=== PATIENT | male | born 1945 | race Caucasian/White ===

== ENCOUNTER → 2018-07-03 08:09 | Outpatient (CLI) | payer MEDICARE, SELFPAY ==
--- NOTE | 2018-07-03 08:13 | CT_ITS ---
EXAM: CT LUNG LOW DOSE WO CONTRAST TECHNIQUE: The exam was performed on a GE Light Speed [address] scanner using 3.0 mGy CTDI. A low dose helical CT CHEST was performed on a multi-detector scanner. All CT scans at this facility use one or more dose reduction techniques, viz.: automated exposure control, ma/kV adjustment per patient size (including targeted exams where dose is matched to indication, i.e. head) or iterative reconstruction technique. The LDCT was performed in a facility that meets the criteria for the screening program. Data regarding this exam was submitted to ACR which is an approved registry. The order for this exam indicates that it came as a result of a lung cancer screening counseling shard decision-making visit that included all the elements required of such a visit including smoking cessation. The radiologist interpreting this exam meets the [facility] criteria for the LDCT lung cancer screening program. The exam is reported using the Lung-RADS classification scale and reported to the ACR registry. NOTE: This study was performed for the specific purposes of lung cancer screening and is not an alternative to diagnostic chest CT. RADIATION DOSE: CTDI vol(CT dose Index-volume) = 2.9mGy DLP (Dose Length Product) = 121.4 mGy-cm COMPARISON: None HISTORY: 1 pack per day 54 years = 52 pack year. Currently smoking. No signs of symptoms of lung cancer FINDINGS: LUNG LAMB COPD. Moderate emphysematous changes apical pleural scarring likely accounts for the minimal irregular slight nodular density at the right lung apex extending towards the pleura. Minimal density at the medial left lung apex include some calcifications and most likely does reflect fibrocalcific pleural and parenchymal scarring Small focal less than 4 mm density at the periphery of the left upper lung axial image 30 more likely scarring. Scattered scant areas of less evident pleural parenchymal scarring for example anterior R UL axial image 46 barely evident. Unimpressive. Minor thickening at the peripheral reflection of the major fissure on the left noted. . The coronal views nicely demonstrate a linear scarring and atelectasis just above the left hemidiaphragm along with with some minor bronchiectatic changes in this region. Findings here compatible & reflect postinflammatory changes and scarring here at the left lung base/left lower lobe Overall sign at category lung-RADS 2, possibly up to category 3. With benign appearance behavior low likelihood (lung-RADS 2,Category2): Follow-up in one 12 months adequate but would be encouraged, and emphasized.. MEDIASTINUM and deangelo No Mediastinal adenopathy or mass. No significant hilar adenopathy or mass. Minimal gynecomastia bilaterally. No axillary adenopathy. Heart normal size no pericardial effusion. No remarkable coronary artery calcification Upper abdomen. Disproportionate prominent left lobe versus right with posterior position of gallbladder towards the right colon. Anatomical variation although could reflect underlying liver disease however recommend correlation with LFTs. Osseous. No osseous lesions. Mild degenerative changes T-spine with Schmorl's nodes mid T-spine ribs appear intact. IMPRESSION:...... 1. Chronic lung changes. Moderately pronounced Emphysematous changes Particularly note Linear atelectasis and scarring, most pronounced at left lung base just above left hemidiaphragm. Reflect old postinflammatory changes with minimal bronchiectatic changes this region,. Along with mild elevation left hemidiaphragm reflecting mild volume loss from scarring.. 2.. Mild irregular apical pleural & parenchymal scarring likely account for the densities towards the apices bilaterally Scatte
== END ==
PROVIDERS: PCP Physician Assistant; Visit Provider Physician Assistant
DX: Z12.2 Encounter for screening for malignant neoplasm of respiratory organs (principal); Z87.891 Personal history of nicotine dependence

== ENCOUNTER → 2018-11-06 10:26 | Outpatient (CLI) | payer MEDICARE, SELFPAY ==
[2018-11-06 12:02] LABS: Prostate Specific Ag, Diagnost 3.37 ng/mL (0.0-4.0)
== END ==
PROVIDERS: Visit Provider Urology
DX: R97.20 Elevated prostate specific antigen [PSA] (principal)
CPT/HCPCS: 36415; 84153

== ENCOUNTER → 2019-04-20 10:07 | Outpatient (POV) | payer MEDICARE, SELFPAY | PROVIDERS: Visit Provider Dermatology | DX: Z00.00 Encounter for general adult medical examination without abnormal findings (principal) ==

== ENCOUNTER → 2019-09-07 07:54 | Outpatient (CLI) | payer MEDICARE, SELFPAY ==
--- NOTE | 2019-09-07 07:57 | CT_ITS ---
PROCEDURE: CT LUNG SCREENING CLINICAL INDICATION: H/O NICOTINE DEPENDENCE Fifty-three pack-year smoking history, asymptomatic for lung cancer COMPARISON: LUNGSCREEN CT lung screening from 07/03/2018 TECHNIQUE: The exam was performed on a GE Light Speed [address] scanner using 2.90 mGy CTDI. A low dose helical CT CHEST was performed on a multi-detector scanner. All CT scans at the facility use one or more dose reduction, viz: automated exposure control, ma/kV adjustment per patient size (including targeted exams where dose is matched to indication, i.e. head), or iterative reconstruction technique. The LDCT was performed in a facility that meets the criteria for the screening program. Data regarding this exam was submitted to ACR which is an approved registry. The order for this exam indicates that it came as a result of a lung cancer screening counseling shard decision-making visit that included all the elements required of such a visit including smoking cessation. The radiologist interpreting this exam meets the CMS criteria for the LDCT lung cancer screening program. The exam is reported using the Lung-RADS classification scale and reported to the ACR registry. NOTE: This study was performed for the specific purposes of lung cancer screening and is not an alternative to diagnostic chest CT. RADIATION DOSE: CTDI vol(CT dose Index-volume) = 2.90mG DLP (Dose Length Product) = 121.68 mGcm Lung Rads Category: FINDINGS: COPD/centrilobular emphysema with scattered areas of scarring/fibrosis as before. Atelectatic or fibrotic changes are present in the lung bases slightly worse on the right from the previous exam. There are scattered noncalcified and calcified pulmonary nodules. The noncalcified nodules are 3 mm or less and unchanged. No suspicious nodules apparent OTHER FINDINGS: Gynecomastia IMPRESSION: Lung rads category 2, benign Recommend annual LD CT Dictated by: Cory Guillory MD 09/13/2019 09:47 Electronically signed by Cory Guillory MD in [place] 09/13/2019 09:47
--- NOTE | 2019-09-07 07:58 | US_ITS ---
PROCEDURE: US ABD. AORTA SCREENING CLINICAL INDICATION: SCREENING FOR AAA COMPARISON: No exams were available for comparison FINDINGS: The proximal abdominal aorta measures 18 millimeters x 21 millimeters. The mid abdominal aorta measures 17 mm x 19 millimeters. The distal abdominal aorta measures 17 mm x 17 millimeters. The proximal right common iliac artery measures 8.3 millimeters and in the proximal left iliac artery measures 7.7 millimeters. There is no significant atheromatous changes, evidence of and aneurysm, or abnormal fluid collections. Incidental note is of a 40 millimeter X 16 millimeter echogenic lesion within the inferior right lobe of the liver. IMPRESSION: No evidence of an aneurysm, echogenic lesion within the right lobe of the liver. This may represent a hemangioma and clinical correlation suggested. Dictated by: Talon Navarro 09/07/2019 10:07 Electronically signed by Talon aNvarro in [place] 09/07/2019 10:07
== END ==
PROVIDERS: PCP Physician Assistant; Visit Provider Physician Assistant
DX: R91.1 Solitary pulmonary nodule (principal); Z87.891 Personal history of nicotine dependence
CPT/HCPCS: 76705

== ENCOUNTER → 2019-09-28 08:41 | Outpatient (CLI) | payer MEDICARE, SELFPAY ==
[2019-09-28 09:33] LABS: Blood Urea Nitrogen 11 mg/dl (9-20); Estimated Glomerular Filt Rate 73 ml/min (>60); GFR (African American) 89 ML/MIN (>60)
== END ==
PROVIDERS: Visit Provider Physician Assistant
DX: R16.0 Hepatomegaly, not elsewhere classified (principal)
CPT/HCPCS: 36415; 82565; 84520

== ENCOUNTER → 2019-10-01 09:38 | Outpatient (CLI) | payer MEDICARE, SELFPAY ==
--- NOTE | 2019-10-01 09:40 | CT_ITS ---
PROCEDURE: CT ABDOMEN WO/W CON CLINICAL HISTORY: LIVER MASS Follow-up liver mass COMPARISON: LUNGSCREEN CT lung screening from 07/03/2018 US ABD. AORTA SCREENING from 09/07/2019 TECHNIQUE: 75 mL Optiray 350. Hemangioma protocol without contrast, 30 second, 60 second, and 5 minutes post enhanced delayed images. Axial images obtained with sagittal and coronal reformats. All CT scans at the facility use one or more dose reduction, viz: automated exposure control, ma/kV adjustment per patient size (including targeted exams where dose is matched to indication, i.e. head), or iterative reconstruction technique. FINDINGS: COPD noted in the lung bases. No liver mass is identified. No abnormal enhancement or fluid collection evident. Segmentation anomaly noted of the liver with prominent left lobe and smaller right lobe. There is some heterogeneous density on the unenhanced images. Perhaps the ultrasound abnormality was related to an area of fatty infiltration or artifact but is not demonstrated on the CT scan. The spleen, adrenal glands, pancreas have an unremarkable appearance. No radiopaque gallstones. There is a 2 mm stone in the lower pole of the right kidney and a 2 mm stone in the mid polar region of the left kidney. No intestinal obstruction or free air. No acute bony anomalies. IMPRESSION: 1. No hepatic mass identified. The area of increased echogenicity on the ultrasound may have been due to some focal fatty infiltration and or artifact. Segmentation anomaly noted of the liver with small right hepatic lobe. 2. Nonobstructing bilateral renal calculi Dictated by: Cory Guillory MD 10/02/2019 07:49 Electronically signed by Cory Guillory MD in [place] 10/02/2019 07:49
== END ==
PROVIDERS: PCP Physician Assistant; Visit Provider Physician Assistant
DX: R16.0 Hepatomegaly, not elsewhere classified (principal)
CPT/HCPCS: 74170; Q9967

== ENCOUNTER → 2019-11-16 13:52 | Outpatient (CLI) | payer MEDICARE, SELFPAY ==
[2019-11-16 15:23] LABS: Prostate Specific Ag Screen 3.3 ng/ml (0.0-4.0)
== END ==
PROVIDERS: Visit Provider Urology
DX: Z12.5 Encounter for screening for malignant neoplasm of prostate (principal)
CPT/HCPCS: 36415; G0103

== ENCOUNTER 2020-02-24 01:55 | Emergency (ER) | payer MEDICARE, SELFPAY ==
[2020-02-24 01:59] VITALS: BP 142/82; PULSE 67; RESP 18; TEMP 36.6; O2SAT 98; BMI 25.0
--- NOTE | 2020-02-24 02:24 | CT_ITS ---
PROCEDURE: CT ABDOMEN PELVIS W CON CLINICAL INDICATION: abd pain Right lower quadrant abdominal pain radiating into the right testicle COMPARISON: CT CT ABDOMEN WO/W CON from 10/01/2019 TECHNIQUE: IV Contrast: 75ML Isovue 370 Oral Contrast None Axial images obtained with sagittal and coronal reformats. All CT scans at the facility use one or more dose reduction, viz: automated exposure control, ma/kV adjustment per patient size (including targeted exams where dose is matched to indication, i.e. head), or iterative reconstruction technique. FINDINGS: LOWER THORAX: There are mild atelectatic changes in the lung bases. ABDOMEN & PELVIS: Nonspecific gastric wall thickening which could be due to gastritis or nondistention. This is in the region of the antrum of the stomach. There is bowel interposition between the liver in the abdominal wall. No focal liver lesions. The spleen, liver, adrenal glands, and pancreas have an unremarkable appearance. There is a 2 mm stone in the lower pole of the right kidney and upper pole of the left kidney. There is mild right hydronephrosis and hydroureter secondary to a 2 mm stone at the right ureterovesical junction. No intestinal obstruction or free air. No evidence of appendicitis or diverticulitis. No acute bony findings. IMPRESSION: 1. 2 mm right ureterovesical junction stone with mild right-sided hydroureteronephrosis with nonobstructing punctate bilateral renal calculi 2. Thickening of the antrum of the stomach. This could be due to nondistention or gastritis. Dictated by: Cory Guillory MD 02/24/2020 05:45 Cory Guillory MD in [place] 02/24/2020 05:45
--- NOTE | 2020-02-24 02:26 | US_ITS ---
PROCEDURE: US TESTICULAR CLINICAL INDICATION: testicle pain Right testicular pain, right lower quadrant abdominal pain COMPARISON: No exams were available for comparison FINDINGS: The right testicle is 5 x 2 x 3 cm. Left testicle is 5 x 2 x 3 cm. There is blood flow to both testicles. No testicular mass is apparent. There are small bilateral hydroceles. No spermatoceles or varicocele demonstrated. IMPRESSION: Small bilateral hydroceles otherwise negative testicular ultrasound Dictated by: Cory Guillory MD 02/24/2020 06:32 Cory Guillory MD in [place] 02/24/2020 06:32
[2020-02-24 02:32] LABS: Microscopic, Urine URINE MICROSCOPIC (MICROSCOPIC)
[2020-02-24 02:34] LABS: Appearance,Urine CLEAR (Clear); Basophils % 0.4 % (0.1-2.0); Blood, Urine TRACE-I (Negative); Color,Urine YELLOW (Yellow); Eosinophils # 0.1 K/mm3 (0.0-0.4); Eosinophils % 0.5 % (0.1-12.0); Glucose,Urine (UA) Negative (Negative); Hematocrit 50.6 % (42.0-52.0); Ketones,Urine 1+ (Negative); Leukocyte Esterase,Urine Negative (Negative); Lymphocytes # 2.4 K/mm3 (0.7-4.5); Lymphocytes % 20.9 % (10-50); Mean Corpuscular HGB Conc 33.7 g/dL (31.8-35.4); Mean Corpuscular Hemoglobin 29.1 pg (27.0-31.2); Mean Corpuscular Volume 86.3 fl (80-94); Monocytes # 0.8 K/mm3 (0.1-1.0); Neutrophils # 8.1 K/mm3 (1.8-7.8); Neutrophils % 71.2 % (37.0-80.0); Nitrate,Urine Negative (Negative); Platelet Count 113 K/mm3 (142-424); Protein,Urine Negative (Negative); Red Blood Count 5.86 M/mm3 (4.60-6.20); Red Cell Distribution Width 14.5 % (11.5-17.5); Specific Gravity, Urine 1.025 (1.005-1.030); White Blood Count 11.3 K/mm3 (4.8-10.8)
[2020-02-24 02:41] LABS: Alanine Aminotransferase 44 U/L (12-78); Albumin Level 3.6 g/dl (3.5-5.0); Albumin/Globulin Ratio 1.3 (1.1-1.8); Alkaline Phosphatase 231 U/L (38-126); Amylase 45 U/L (30-110); Anion Gap 9.2 mEq/L (5-15); Aspartate Amino Transferase 53 U/L (17-59); Bilirubin,Total 1.1 mg/dl (0.2-1.3); Blood Urea Nitrogen 15 mg/dl (9-20); Calcium 9.4 mg/dl (8.4-10.2); Carbon Dioxide 28 mmol/L (22.0-30.0); Chloride 103 mmol/L (98-107); Creatinine Clearance Estimated 75 mL/min (50-200); Estimated Glomerular Filt Rate 73 ml/min (>60); GFR (African American) 89 ML/MIN (>60); Globulin 2.8 g/dL (1.3-3.2); Glucose 181 mg/dl (74-100); Potassium 4.2 mmoL/L (3.5-5.1); Sodium 136 mmol/L (136-145); Total Protein,Serum 6.4 g/dl (6.3-8.2)
[2020-02-24 02:44] LABS: Lipase 110 U/L (23-300)
[2020-02-24 02:46] LABS: Bilirubin,Urine Negative (Negative); C-Reactive Protein 0.5 mg/L (0-4)
[2020-02-24 02:47] LABS: Bacteria,Urine 1+ /lpf; Calcium Oxalate Crystals,Urine 2+ /lpf; Mucus,Urine 1+ /lpf
[2020-02-24 03:02] LABS: Procalcitonin 0.133 ng/mL (0.0-2.0)
[2020-02-24 03:09] LABS: Coronavirus 19 IgG Antibody Negative (Negative); Coronavirus 19 IgM Antibody Negative (Negative)
[2020-02-24 03:14] LABS: Erythrocyte Sedimentation Rate 7 mm/hr (0-20)
--- NOTE | 2020-02-24 03:16 | PC.NURSE ---
pt to RAD
--- NOTE | 2020-02-24 03:41 | PC.NURSE ---
pt returned from CT
[2020-02-24 03:50] VITALS: BP 157/77; PULSE 72; RESP 18; O2SAT 95
[2020-02-24 04:21] VITALS: BP 156/79; PULSE 74; RESP 16; O2SAT 94
--- NOTE | 2020-02-24 04:24 | HMH.EDNVD ---
ED Disposition Clinical Impression: Renal colic on right side, Ureter, calculus Disposition: Home, Self-Care Condition on Discharge: Good Instructions: DI for Kidney Stones Additional Instructions: call pcp and dr lopez this am Prescriptions: Tamsulosin HCl [Flomax 0.4mg capsule] 0.4 mg PO HS #10 cap Transmission Status: Pending to [facility] #[id number] Referrals: Kathy Kennedy PA [Primary Care Provider] - Ajay Lopez MD [Staff Physician] - - Critical Care Critical Care Time: No Attestation: On 02/24/20, the high probability of a clinically significant, sudden or life threatening deterioration of the following system(s) required my full and direct attention, intervention and personal management. The time I documented below is in addition to time spent performing reported procedures but includes the following listed in this critical care notation. Medical Decision Making - Medical Records Medical records reviewed: Yes: I reviewed the patient's medical records. - Fausto Inquiry Pt receiving controlled substance: No Vital Signs: 02/24/20 01:59 02/24/20 03:50 02/24/20 04:21 Temperature 97.8 F Temperature Source Oral Pulse Rate [Right Radial] 67 72 74 Respiratory Rate 18 18 16 Blood Pressure [Right Arm] 142/82 H 157/77 H 156/79 H Blood Pressure Mean [Right Arm] 102 103 104 Blood Pressure Source [Right Arm] Automatic Cuff Automatic Cuff Automatic Cuff Blood Pressure Position [Right Arm] Supine Supine Supine 02 Sat by Pulse Oximetry 98 95 94 L Oxygen Delivery Method Room Air Room Air Room Air - Lab Data Lab results reviewed: Yes: I reviewed the patient's lab results. Lab Results 02/24/20 02:21: Urine Color Yellow, Urine Appearance Clear, Urine pH 6.0, Ur Specific [place]ridge 1.025, Urine Protein Negative, Urine Glucose (UA) Negative, Urine Ketones 1+, Urine Blood Trace-i, Urine Nitrate Negative, Urine Bilirubin Negative, Urine Urobilinogen 1.0, Ur Leukocyte Esterase Negative, Urine RBC 3-5, Urine WBC 3-5, Calcium Oxalate Crystal 2+, Urine Bacteria 1+, Urine Mucus 1+ 02/24/20 02:21: WBC 11.3 H, RBC 5.86, Hgb 17.0, Hct 50.6, MCV 86.3, MCH 29.1, MCHC 33.7, RDW 14.5, Plt Count 113 L, MPV 9.0, Neut % (Auto) 71.2, Lymph % (Auto) 20.9, Fergus % (Auto) 7.0, Eos % (Auto) 0.5, Baso % (Auto) 0.4, Neut # (Auto) 8.1 H, Lymph # (Auto) 2.4, Fergus # (Auto) 0.8, Eos # (Auto) 0.1, Baso # (Auto) 0.0, ESR 7 02/24/20 02:21: Sodium 136, Potassium 4.2, Chloride 103, Carbon Dioxide 28, Anion Gap 9.2, BUN 15, Creatinine 1.00, Estimated Creat Clear 75, Estimated GFR 73, Est GFR ( Amer) 89, Glucose 181 H, Calcium 9.4, Total Bilirubin 1.1, AST 53, ALT 44, Alkaline Phosphatase 231 H, C-Reactive Protein 0.5, Total Protein 6.4, Albumin 3.6, Globulin 2.8, Albumin/Globulin Ratio 1.3, Amylase 45 02/24/20 02:21: Lipase 110, Procalcitonin 0.133 02/24/20 02:21: SARS-CoV-2 IgG Ab (Rapid) Negative, SARS-CoV-2 IgM Ab (Rapid) Negative Result diagrams: 02/24/20 02:21 02/24/20 02:21 Orders (Tests/Meds): ED MEDICATIONS Generic Name Dose Route Start Last Admin Trade Name Freq PRN Reason Stop Dose Admin Sodium Chloride 1,000 mls @ 999 mls/hr 02/24/20 02:30 02/24/20 02:35 Sod Chlor 0.9% 1000ml Bag IV 02/24/20 03:30 999 mls/hr .Q1H1M NORM Administration Discontinued Medications Generic Name Dose Route Start Last Admin Trade Name Freq PRN Reason Stop Dose Admin Hydromorphone HCl 0.5 mg 02/24/20 03:45 02/24/20 03:53 Hydromorphone 2mg/Ml Syringe IV 02/24/20 03:46 0.5 mg ONCE ONE Administration Ketorolac Tromethamine 30 mg 02/24/20 02:24 02/24/20 02:48 Ketorolac 30mg/Ml Vial IV 02/24/20 02:25 30 mg ONCE ONE Administration Ondansetron HCl 4 mg 02/24/20 02:24 02/24/20 02:48 Ondansetron 4mg/2ml Vial IV 02/24/20 02:25 4 mg ONCE ONE Administration ORDERS Category Date Time Status CT abdomen pelvis w con Stat Cat Scan 02/24/20 02:24 Ordered US Testicular Stat Ultrasoun
[2020-02-24 05:03] VITALS: BP 126/58; PULSE 64; RESP 16; TEMP 36.6; O2SAT 95
== END 2020-02-24 05:05 | disposition home or self-care (01) ==
PROVIDERS: Emergency Provider Emergency Medicine; PCP Physician Assistant
DX: N20.1 Calculus of ureter (principal); J44.9 Chronic obstructive pulmonary disease, unspecified; E78.5 Hyperlipidemia, unspecified; F17.210 Nicotine dependence, cigarettes, uncomplicated; Z79.899 Other long term (current) drug therapy
CPT/HCPCS: 74177; 76870; 80053; 81001; 82150; 83690; 84145; 85025; 85651; 86140; 86328; 87086; 96365; 96375; 99284; J2405; Q9967

== ENCOUNTER 2020-09-16 16:28 | Emergency (ER) | payer MEDICARE, SELFPAY ==
[2020-09-16 16:36] VITALS: BP 151/84; PULSE 111; RESP 22; TEMP 37.5; O2SAT 95; BMI 22.4
--- NOTE | 2020-09-16 16:48 | XR_ITS ---
PROCEDURE INFORMATION: Exam: XR Chest Exam date and time: 09/16/2020 4:48 PM Age: 75 years old Clinical indication: Cough and shortness of breath; Additional info: SOA TECHNIQUE: Imaging protocol: XR of the chest. Views: 2 views. COMPARISON: CT LUNG SCREENING 09/07/2019 8:07 AM FINDINGS: Lungs: The lungs are hyperinflated, consistent with underlying small airways disease. Atelectatic changes noted within the lung bases without focal pneumonia. Pleural spaces: Unremarkable. No pleural effusion. No pneumothorax. Heart/Mediastinum: Unremarkable. No cardiomegaly. Bones/joints: The thoracic spine demonstrates mild degenerative changes at multiple levels. IMPRESSION: 1. The lungs are hyperinflated, consistent with underlying small airways disease. 2. Atelectatic changes noted within the lung bases without focal pneumonia. The vasculature demonstrates diffuse mild atherosclerotic calcification.
--- NOTE | 2020-09-16 17:23 | HMH.EDUTC ---
[facility] [place] Impression: Bronchitis Sinusitis Qualifiers: Sinusitis location: maxillary Chronicity: acute Recurrence: non-recurrent Qualified Code(s): J01.00 - Acute maxillary sinusitis, unspecified Disposition: Home, Self-Care Condition on Discharge: Good Instructions: DI for Sinusitis Prescriptions: Amoxicillin/Potassium Clav [Augmentin 875-125 Tablet] 1 tab PO Q12H 10 Days #20 tab Transmission Status: Pending to [facility] # predniSONE [Prednisone 20mg Tab] 20 mg PO BID 5 Days #10 tab Transmission Status: Pending to [facility] # Referrals: Kathy Kennedy PA [Primary Care Provider] - Time of Disposition: 17:28 Medical Decision Making - Fausto Inquiry Pt receiving controlled substance: No Vital Signs: 09/16/20 16:36 Temperature 99.5 F Temperature Source Oral Pulse Rate [Left] 111 H Respiratory Rate 22 Blood Pressure [Right Arm] 151/84 H Blood Pressure Mean [Right Arm] 106 02 Sat by Pulse Oximetry 95 Oxygen Delivery Method Room Air Orders (Tests/Meds): ORDERS Category Date Time Status Chest XR 2 view (NOT portable) [XR chest 2V] Stat Exams 09/16/20 16:48 Taken - Radiology Data #1 Image(s): Chest Image Reviewed: Yes I reviewed the patient's radiology image Preliminary Findings: Normal/NAD [facility] [place] - General Stated complaint: cold, cough congestion fever at home Time Seen by Provider: 09/16/20 17:23 Mode of Arrival: Ambulatory Source of Information: Patient Limitations: No Limitations Description of Symptoms (Recalled from Triage Doc. by RN): pt c/o soa, productive cough with white sputum, and a low grade fever. HEENT Symptoms (Recalled from RN notes): No Resp Symptoms (Recalled from RN notes): Yes (soa and productive cough with white sputum) Skin Symptoms (Recalled from RN notes): No MS Symptoms (Recalled from RN notes): No Functional Status (Recalled from RN notes): na - History of Present Illness Provider Complaint: Cough, congestion and fever X 5-6 days. Has had cold chills. Been laying around, fatigued. Overall states he is in good health. Takes cholesterol meds. Smokes 1 ppd but does not use inhalers at home. Has had COVID19 vaccine. Onset (ago): day(s) (5) Location: chest Relieving factors: none Exacerbating factors: none Associated symptoms: cough, fever/chills - Related Data Home Medications Medication Instructions Recorded Confirmed atorvastatin 10 mg tablet 10 mg PO DAILY 08/11/18 02/24/20 niacin 250 mg tablet,extended 250 mg PO DAILY 08/11/18 02/24/20 release Previous Rx's Medication Instructions Recorded Tamsulosin HCl [Flomax 0.4mg 0.4 mg PO HS #10 cap 02/24/20 capsule] Amoxicillin/Potassium Clav 1 tab PO Q12H 10 Days #20 tab 09/16/20 [Augmentin 875-125 Tablet] predniSONE [Prednisone 20mg 20 mg PO BID 5 Days #10 tab 09/16/20 Tab] Allergies Allergy/AdvReac Type Severity Reaction Status Date / Time morphine Allergy Verified 11/16/19 13:26 Acetaminophen Allergy Unknown Uncoded 11/16/19 13:26 - Worker's Comp Is this a Worker's Comp case?: No [facility] History - Hepatitis A Screen Drug use history?: No High risk sexual behaviors?: No History of sexually transmitted infection?: No Currently employed?: No Childcare worker?: No Do you have indoor plumbing?: Yes Do you have electricity?: Yes Attestation statement:: This patient has been screened for Hepatitis A risk factors. I have reviewed the patient's past medical history: Yes Medical History: Reports:: Chronic Obstructive Pulmonary Disease (COPD), Hyperlipidemia, Lung Disease Denies:: Cancer, Diabetes Mellitus Type 1, Diabetes Mellitus Type 2, Internal Pacemaker, MRSA, Seizures Other Surgeries: Yes: No Previous Surgery, Colonoscopy. No: Pacemaker Amputation: No Fractures: No Comment: lost one finger on hand - Social History Smoking Status: Current every day smoker Tobacco Type: cigarettes # Pac
[2020-09-16 17:39] VITALS: BP 147/80; PULSE 102; RESP 20; TEMP 36.6
== END 2020-09-16 17:40 | disposition home or self-care (01) ==
PROVIDERS: Emergency Provider Physician Assistant; PCP Physician Assistant
DX: J20.9 Acute bronchitis, unspecified (principal); J01.00 Acute maxillary sinusitis, unspecified; J44.9 Chronic obstructive pulmonary disease, unspecified; E78.5 Hyperlipidemia, unspecified; Z79.899 Other long term (current) drug therapy
CPT/HCPCS: G0463; 71046; 99202

== ENCOUNTER 2020-10-10 16:46 | Emergency (ER) | payer MEDICARE, SELFPAY ==
[2020-10-10 16:48] VITALS: BP 153/81; PULSE 55; RESP 16; TEMP 36.6; O2SAT 96; BMI 22.8
--- NOTE | 2020-10-10 16:57 | CT_ITS ---
PROCEDURE INFORMATION: Exam: CT Abdomen And Pelvis Without Contrast Exam date and time: 10/10/2020 4:57 PM Age: 75 years old Clinical indication: Abdominal pain; Patient HX: Left flank pain for 3 weeks, worse today. ; Additional info: R/O stone TECHNIQUE: Imaging protocol: Computed tomography of the abdomen and pelvis without contrast. Radiation optimization: All CT scans at this facility use at least one of these dose optimization techniques: automated exposure control; mA and/or kV adjustment per patient size (includes targeted exams where dose is matched to clinical indication); or iterative reconstruction. COMPARISON: CT ABDOMEN PELVIS W CON 02/24/2020 3:03 AM FINDINGS: Lungs: Bibasilar atelectasis Liver: Normal. No mass. Gallbladder and bile ducts: Normal. No calcified stones. No ductal dilation. Pancreas: Normal. No ductal dilation. Spleen: Normal. No splenomegaly. Adrenal glands: Normal. No mass. Kidneys and ureters: 4.5 millimeter distal LEFT ureteral calculus causes dilatation of LEFT collecting system and LEFT ureter. The LEFT kidney is edematous and there is LEFT perirenal stranding. Nonobstructing renal calculi bilaterally Stomach and bowel: Unremarkable. No obstruction. No mucosal thickening. Appendix: No evidence of appendicitis. Intraperitoneal space: Unremarkable. No free air. No significant fluid collection. Vasculature: Unremarkable. No abdominal aortic aneurysm. Lymph nodes: Unremarkable. No enlarged lymph nodes. Urinary bladder: Unremarkable as visualized. Reproductive: The prostate is enlarged, greater than 5 cm. Recommend urology consult Bones/joints: Unremarkable. No acute fracture. Soft tissues: Unremarkable. IMPRESSION: 4.5 millimeter distal LEFT ureteral calculus causes dilatation of LEFT collecting system and LEFT ureter. The LEFT kidney is edematous and there is LEFT perirenal stranding. The prostate is enlarged, greater than 5 cm. Recommend urology consult
[2020-10-10 17:15] LABS: Microscopic, Urine URINE MICROSCOPIC (MICROSCOPIC)
[2020-10-10 17:17] LABS: Appearance,Urine CLOUDY (Clear); Bilirubin,Urine Negative (Negative); Blood, Urine 3+ (Negative); Color,Urine DK YELLOW (Yellow); Glucose,Urine (UA) Negative (Negative); Ketones,Urine Negative (Negative); Leukocyte Esterase,Urine TRACE (Negative); Nitrate,Urine Negative (Negative); Protein,Urine TRACE (Negative); Specific Gravity, Urine 1.025 (1.005-1.030)
[2020-10-10 17:24] LABS: Basophils # 0.1 K/mm3 (0-0.2); Basophils % 1.1 % (0.1-2.0); Eosinophils # 0.1 K/mm3 (0.0-0.4); Eosinophils % 2.5 % (0.1-12.0); Hematocrit 43.3 % (42.0-52.0); Hemoglobin 14.3 g/dL (14.1-18.0); Lymphocytes # 2.4 K/mm3 (0.7-4.5); Mean Corpuscular HGB Conc 32.9 g/dL (31.8-35.4); Mean Corpuscular Hemoglobin 28.1 pg (27.0-31.2); Mean Corpuscular Volume 85.4 fl (80-94); Mean Platelet Volume 8.9 fl (7.4-10.4); Monocytes # 0.3 K/mm3 (0.1-1.0); Monocytes % 5.2 % (1.7-9.3); Neutrophils # 2.5 K/mm3 (1.8-7.8); Neutrophils % 47.3 % (37.0-80.0); Platelet Count 77 K/mm3 (142-424); Red Blood Count 5.07 M/mm3 (4.60-6.20); Red Cell Distribution Width 14.3 % (11.5-17.5); White Blood Count 5.4 K/mm3 (4.8-10.8)
[2020-10-10 17:28] LABS: WBC,Urine Occasional #/hpf (0-3)
[2020-10-10 17:28] LABS: Chloride 107 mmol/L (98-107); Sodium 139 mmol/L (136-145)
[2020-10-10 17:29] LABS: Potassium 3.9 mmoL/L (3.5-5.1)
[2020-10-10 17:31] LABS: Alanine Aminotransferase 55 U/L (12-78); Albumin Level 3.3 g/dl (3.5-5.0); Albumin/Globulin Ratio 1.1 (1.1-1.8); Alkaline Phosphatase 563 U/L (38-126); Anion Gap 7.9 mEq/L (5-15); Aspartate Amino Transferase 83 U/L (17-59); Blood Urea Nitrogen 13 mg/dl (9-20); Calcium 8.7 mg/dl (8.4-10.2); Carbon Dioxide 28 mmol/L (22.0-30.0); Creatinine Clearance Estimated 63 mL/min (50-200); Estimated Glomerular Filt Rate 66 ml/min (>60); GFR (African American) 79 ML/MIN (>60); Globulin 3.1 g/dL (1.3-3.2); Glucose 142 mg/dl (74-100); Total Protein,Serum 6.4 g/dl (6.3-8.2)
--- NOTE | 2020-10-10 17:47 | PC.NURSE ---
PTGONE TO CT
[2020-10-10 18:00] VITALS: BP 133/85; PULSE 87; RESP 16; O2SAT 96
--- NOTE | 2020-10-10 19:02 | HMH.EDGENADL ---
ED Disposition Clinical Impression: Ureter, calculus Disposition: Home, Self-Care Condition on Discharge: Good Instructions: DI for Kidney Stones Additional Instructions: Recommend increase hydration and straining your urine. Return to the ED for any new or worsening symptoms including severe pain, persistent vomiting, or fever. Prescriptions: Tamsulosin HCl [Flomax 0.4mg capsule] 0.4 mg PO HS #14 cap Transmission Status: Pending to [employer] # Ondansetron [Zofran 4mg ODT] 4 mg PO TIDP PRN #9 tab PRN Reason: Nausea Transmission Status: Pending to [employer] # Referrals: Kathy Kennedy PA [Primary Care Provider] - - Critical Care Critical Care Time: No Attestation: On 10/10/20, the high probability of a clinically significant, sudden or life threatening deterioration of the following system(s) required my full and direct attention, intervention and personal management. The time I documented below is in addition to time spent performing reported procedures but includes the following listed in this critical care notation. Medical Decision Making - Medical Records Medical records reviewed: Yes: I reviewed the patient's medical records. - Fausto Inquiry Pt receiving controlled substance: No Vital Signs: 10/10/20 16:48 Temperature 98 F Temperature Source Oral Pulse Rate [Radial] 55 L Respiratory Rate 16 Blood Pressure [Right Arm] 153/81 H Blood Pressure Mean [Right Arm] 105 Blood Pressure Position [Right Arm] Sitting 02 Sat by Pulse Oximetry 96 Oxygen Delivery Method Room Air - Lab Data Lab Results 10/10/20 17:05: Urine Color Dk yellow, Urine Appearance Cloudy, Urine pH 6.0, Ur Specific [place] 1.025, Urine Protein Trace, Urine Glucose (UA) Negative, Urine Ketones Negative, Urine Blood 3+, Urine Nitrate Negative, Urine Bilirubin Negative, Urine Urobilinogen 1.0, Ur Leukocyte Esterase Trace, Urine RBC 10-20, Urine WBC Occasional, Ur Squamous Epith Cells 5-10, Urine Bacteria None 10/10/20 17:15: WBC 5.4, RBC 5.07, Hgb 14.3, Hct 43.3, MCV 85.4, MCH 28.1, MCHC 32.9, RDW 14.3, Plt Count 77 L, MPV 8.9, Neut % (Auto) 47.3, Lymph % (Auto) 44.0, [place] % (Auto) 5.2, Eos % (Auto) 2.5, Baso % (Auto) 1.1, Neut # (Auto) 2.5, Lymph # (Auto) 2.4, [place] # (Auto) 0.3, Eos # (Auto) 0.1, Baso # (Auto) 0.1 10/10/20 17:15: Sodium 139, Potassium 3.9, Chloride 107, Carbon Dioxide 28, Anion Gap 7.9, BUN 13, Creatinine 1.10, Estimated Creat Clear 63, Estimated GFR 66, Est GFR ( Amer) 79, Glucose 142 H, Calcium 8.7, Total Bilirubin 1.0, AST 83 H, ALT 55, Alkaline Phosphatase 563 H, Total Protein 6.4, Albumin 3.3 L, Globulin 3.1, Albumin/Globulin Ratio 1.1 Result diagrams: 10/10/20 17:15 10/10/20 17:15 Orders (Tests/Meds): ED MEDICATIONS Discontinued Medications Generic Name Dose Route Start Last Admin Trade Name Freq PRN Reason Stop Dose Admin Sodium Chloride 1,000 mls @ 999 mls/hr 10/10/20 17:00 10/10/20 17:23 Sod Chlor 0.9% 1000ml Bag IV 10/10/20 18:00 999 mls/hr .Q1H1M NORM Administration Ketorolac Tromethamine 30 mg 10/10/20 17:20 10/10/20 17:23 Ketorolac 30mg/Ml Vial IV 10/10/20 17:21 30 mg ONCE ONE Administration Ondansetron HCl 4 mg 10/10/20 17:20 10/10/20 17:23 Ondansetron 4mg/2ml Vial IV 10/10/20 17:21 4 mg ONCE ONE Administration Medical Decision Narrative: 75-year-old male who presents with a history of renal lithiasis. He is overall well-appearing and nontoxic on initial examination. He is having left flank pain that is consistent with renal lithiasis and due to his history will perform a CT scan as well as urinalysis with laboratory data. He was given IV Toradol and 1 L IV fluid bolus. 4 mg IV Zofran for nausea. Labs are nonactionable and after interventions patient feels significantly better CT scan did identify a 4.5 mm stone with mild obstruction and stranding. No evidence of urinary tract infection along with
[2020-10-10 19:18] VITALS: BP 133/85; PULSE 88; RESP 16; TEMP 36.7; O2SAT 96
[2020-10-10 19:24] VITALS: BP 135/80; PULSE 85; RESP 17; TEMP 36.6; O2SAT 97
== END 2020-10-10 19:25 | disposition home or self-care (01) ==
PROVIDERS: Emergency Provider Student in an Organized Health Care Education/Training Program; PCP Physician Assistant
DX: N20.1 Calculus of ureter (principal); J44.9 Chronic obstructive pulmonary disease, unspecified; E78.5 Hyperlipidemia, unspecified; F17.210 Nicotine dependence, cigarettes, uncomplicated
CPT/HCPCS: 74176; 80053; 81001; 85025; 96365; 96375; 99282; J2405

== ENCOUNTER 2020-10-18 16:38 | Emergency (ER) | payer MEDICARE, SELFPAY ==
[2020-10-18 16:38] VITALS: BP 109/86; PULSE 111; RESP 20; TEMP 36.7; O2SAT 97; BMI 21.7
[2020-10-18 17:08] LABS: Microscopic, Urine URINE MICROSCOPIC (MICROSCOPIC)
[2020-10-18 17:13] LABS: Appearance,Urine CLEAR (Clear); Bilirubin,Urine Negative (Negative); Blood, Urine Negative (Negative); Color,Urine AMBER (Yellow); Glucose,Urine (UA) Negative (Negative); Ketones,Urine Negative (Negative); Leukocyte Esterase,Urine TRACE (Negative); Nitrate,Urine Negative (Negative); PH,Urine 6.5 (5.0-8.5); Protein,Urine Negative (Negative); Specific Gravity, Urine 1.015 (1.005-1.030)
[2020-10-18 17:30] LABS: Bacteria,Urine 1+ /lpf
--- NOTE | 2020-10-18 17:46 | HMH.EDGENADL ---
ED Disposition Clinical Impression: Flank pain Disposition: Home, Self-Care Condition on Discharge: Good Instructions: DI for Acute Abdominal Pain Prescriptions: Hydrocod/Acet 5/325 mg [[place] 5/325mg tablet] 1 tab PO Q6HP PRN #10 tab PRN Reason: Moderate Pain Transmission Status: Sent to [facility] #[id number] Referrals: Kathy Kennedy PA [Primary Care Provider] - 3 days Time of Disposition: 17:51 - Critical Care Critical Care Time: No Attestation: On 10/18/20, the high probability of a clinically significant, sudden or life threatening deterioration of the following system(s) required my full and direct attention, intervention and personal management. The time I documented below is in addition to time spent performing reported procedures but includes the following listed in this critical care notation. Medical Decision Making - Medical Records Medical records reviewed: Yes: I reviewed the patient's medical records. - Fausto Inquiry Pt receiving controlled substance: Yes Fausto was queried for this patient: No Reason not queried -: Emergent pt cond-no time Risks and benefits of using a controlled substance: were discussed with pt by me Vital Signs: 10/18/20 16:38 Temperature 98.1 F Temperature Source Oral Pulse Rate [Right] 111 H Respiratory Rate 20 Blood Pressure [Right Arm] 109/86 L Blood Pressure Mean [Right Arm] 93 02 Sat by Pulse Oximetry 97 Oxygen Delivery Method Room Air - Lab Data Lab results reviewed: Yes: I reviewed the patient's lab results. Lab Results 10/18/20 16:59: Urine Color [place], Urine Appearance Clear, Urine pH 6.5, Ur Specific [place] 1.015, Urine Protein Negative, Urine Glucose (UA) Negative, Urine Ketones Negative, Urine Blood Negative, Urine Nitrate Negative, Urine Bilirubin Negative, Urine Urobilinogen 2.0, Ur Leukocyte Esterase Trace, Urine RBC None, Urine WBC 3-5, Ur Squamous Epith Cells None, Urine Bacteria 1+ Medical Decision Narrative: Patient evaluated for ongoing left-sided pain. Reviewed the patient's documentation, CT scan results from recent visit. Patient had hydronephrosis at that time. Urinalysis without sign of infection at this time. Patient has pending appoint Dr. Mcghee in the morning. He was not prescribed pain medication on Friday. We will treat the patient with hydrocodone p.o. and Toradol IM at this time. We will discharge the patient home with a prescription for hydrocodone. Strongly counseled him to maintain his appointment in the morning with Dr. Mcghee or to return if he develops fever. General Adult HPI - General Chief complaint: Abdominal Pain Stated complaint: kidney stones Time Seen by Provider: 10/18/20 17:46 Mode of Arrival: Ambulatory Limitations: No Limitations Description of Symptoms (Recalled from ER Triage Doc. by RN): c/o left sided abdominal pain x2 weeks, seen last week & diagnosed with kidney stone however pain is not getting any better - History of Present Illness HPI narrative: 75yo M 3 presents the emergency department secondary to left flank pain. Patient reports being evaluated emergency department on Friday being diagnosed with kidney stone. He complains of worsened pain. Denies any fever, nausea/vomiting/diarrhea. Reports he is not sent home with any additional pain medication. States he is post see Dr. Mcghee at 1045 tomorrow morning. - Related Data Home Medications Medication Instructions Recorded Confirmed atorvastatin 10 mg tablet 10 mg PO DAILY 08/11/18 02/24/20 niacin 250 mg tablet,extended 250 mg PO DAILY 08/11/18 02/24/20 release Previous Rx's Medication Instructions Recorded Tamsulosin HCl [Flomax 0.4mg 0.4 mg PO HS #10 cap 02/24/20 capsule] Amoxicillin/Potassium Clav 1 tab PO Q12H 10 Days #20 tab 09/16/20 [Augmentin 875-125 Tablet] predniSONE [Prednisone 20mg 20 mg PO BID 5 Days #10 tab 09/16/20 Tab] Ondansetron [Zofran 4mg ODT] 4 mg PO TIDP PRN #9 t
[2020-10-18 18:03] VITALS: BP 130/72; PULSE 82; RESP 18; TEMP 36.6; O2SAT 98
== END 2020-10-18 18:05 | disposition home or self-care (01) ==
PROVIDERS: Emergency Provider Family Medicine; PCP Physician Assistant
DX: N20.1 Calculus of ureter (principal); E78.5 Hyperlipidemia, unspecified; J44.9 Chronic obstructive pulmonary disease, unspecified; F17.210 Nicotine dependence, cigarettes, uncomplicated
CPT/HCPCS: 81001; 96372; 99282

== ENCOUNTER → 2020-10-19 19:26 | Outpatient (CLI) | payer MEDICARE, SELFPAY ==
[2020-11-14 14:28] LABS: Specimen Type Ureter
[2020-11-14 14:30] LABS: Ca oxalate dihydrate 80; Calcium phosphate 20
== END ==
PROVIDERS: Visit Provider Urology
DX: N20.1 Calculus of ureter (principal)
CPT/HCPCS: 82370

== ENCOUNTER → 2020-10-24 14:39 | Outpatient (CLI) | payer MEDICARE, SELFPAY ==
--- NOTE | 2020-10-24 14:43 | XR_ITS ---
PROCEDURE: XR KUB CLINICAL INDICATION: ureteral stone COMPARISON: CT CT ABDOMEN PELVIS WO CON from 10/10/2020 FINDINGS: There are numerous bilateral renal calculi. No obvious ureteral calculi evident. Vascular calcification noted. There are some degenerative changes of the left SI joint and lumbar spine. IMPRESSION: Bilateral nephrolithiasis. No ureteral calculi evident. Dictated by: Cory Guillory MD 10/24/2020 15:13 Cory Guillory MD in [place] 10/24/2020 15:13
== END ==
PROVIDERS: PCP Physician Assistant; Visit Provider Urology
DX: N20.1 Calculus of ureter (principal)
CPT/HCPCS: 74018

== ENCOUNTER → 2020-12-15 08:55 | Outpatient (CLI) | payer MEDICARE, SELFPAY ==
[2020-12-15 09:00] LABS: Adenovirus F 40/41, stool Not Detected (NotDetected); Astrovirus Not Detected (NotDetected); Campylobacter Not Detected (NotDetected); Clostridium Difficile A/B, PCR Not Detected (NotDetected); Cryptosporidium Not Detected (NotDetected); Cyclospora Cayetanesis Not Detected (NotDetected); Entamoeba histolytica Not Detected (NotDetected); Enteroaggregative E coli Not Detected (NotDetected); Enteropathogenic E coli Not Detected (NotDetected); Enterotoxigenic E coli Not Detected (NotDetected); Giardia lamblia Not Detected (NotDetected); Norovirus Not Detected (NotDetected); Plesimonas Shigalloides, PCR Not Detected (NotDetected); Rotavirus A Not Detected (NotDetected); Salmonella, PCR Not Detected (NotDetected); Sapovirus Not Detected (NotDetected); Shiga-like toxin E coli Not Detected (NotDetected); Shigella Enterovasive E coli Not Detected (NotDetected); Vibrio Cholerae Not Detected (NotDetected); Vibrio, PCR Not Detected (NotDetected); Yersinia Entercolitica, PCR Not Detected (NotDetected)
--- NOTE | 2020-12-15 09:23 | XR_ITS ---
PROCEDURE: XR ABDOMEN MIN 2V CLINICAL INDICATION: DIARRHEA,UNSPECIFIED TYPE COMPARISON: CT CT ABDOMEN PELVIS WO CON from 10/10/2020 CR XR KUB from 10/24/2020 FINDINGS: Nonspecific nonobstructive bowel gas pattern. There is mild lumbar scoliosis convex right. Bowel interposition noted on the right. There are bilateral renal calculi measuring up to 4 mm in the upper pole on the right and 2 mm in the left kidney. There is vascular calcification. No obvious ureteral calculus. No acute bony findings. IMPRESSION: Bilateral renal calculi. No evidence of intestinal obstruction. Dictated by: Cory Guillory MD 12/15/2020 14:41 Cory Guillory MD in [place] 12/15/2020 14:41
[2020-12-15 09:29] LABS: Basophils % 0.9 % (0.1-2.0); Eosinophils # 0.1 K/mm3 (0.0-0.4); Eosinophils % 1.3 % (0.1-12.0); Hematocrit 44.8 % (42.0-52.0); Hemoglobin 14.8 g/dL (14.1-18.0); Lymphocytes # 2.1 K/mm3 (0.7-4.5); Lymphocytes % 45.3 % (10-50); Mean Corpuscular HGB Conc 33.1 g/dL (31.8-35.4); Mean Corpuscular Hemoglobin 29.5 pg (27.0-31.2); Mean Corpuscular Volume 89.2 fl (80-94); Mean Platelet Volume 8.7 fl (7.4-10.4); Monocytes # 0.3 K/mm3 (0.1-1.0); Neutrophils # 2.2 K/mm3 (1.8-7.8); Neutrophils % 46.5 % (37.0-80.0); Platelet Count 109 K/mm3 (142-424); Red Blood Count 5.02 M/mm3 (4.60-6.20); Red Cell Distribution Width 15.6 % (11.5-17.5); White Blood Count 4.6 K/mm3 (4.8-10.8)
[2020-12-15 10:15] LABS: Alanine Aminotransferase 42 U/L (12-78); Albumin Level 3.2 g/dl (3.5-5.0); Albumin/Globulin Ratio 1.1 (1.1-1.8); Alkaline Phosphatase 421 U/L (38-126); Anion Gap 6.5 mEq/L (5-15); Aspartate Amino Transferase 73 U/L (17-59); Bilirubin,Total 1.2 mg/dl (0.2-1.3); Blood Urea Nitrogen 10 mg/dl (9-20); Calcium 9.1 mg/dl (8.4-10.2); Carbon Dioxide 29 mmol/L (22.0-30.0); Chloride 108 mmol/L (98-107); Estimated Glomerular Filt Rate 95 ml/min (>60); GFR (African American) 115 ML/MIN (>60); Glucose 133 mg/dl (74-100); Potassium 4.5 mmoL/L (3.5-5.1); Sodium 139 mmol/L (136-145); Total Protein,Serum 6.2 g/dl (6.3-8.2)
[2020-12-15 10:43] LABS: Prostate Specific Ag Screen 3.8 ng/ml (0.0-4.0); Thyroid Stimulating Hormone 2.09 uIU/mL (0.465-4.68)
== END ==
PROVIDERS: Visit Provider Physician Assistant
DX: R19.7 Diarrhea, unspecified (principal); Z12.5 Encounter for screening for malignant neoplasm of prostate
CPT/HCPCS: 36415; 74019; 80053; 84443; 85025; 87506; G0103

== ENCOUNTER → 2020-12-26 09:07 | Outpatient (CLI) | payer MEDICARE, SELFPAY ==
[2020-12-26 09:40] LABS: Basophils # 0.1 K/mm3 (0-0.2); Eosinophils # 0.1 K/mm3 (0.0-0.4); Eosinophils % 2.3 % (0.1-12.0); Hematocrit 45.9 % (42.0-52.0); Lymphocytes # 2.4 K/mm3 (0.7-4.5); Lymphocytes % 51.4 % (10-50); Mean Corpuscular HGB Conc 32.7 g/dL (31.8-35.4); Mean Corpuscular Hemoglobin 29.7 pg (27.0-31.2); Monocytes # 0.3 K/mm3 (0.1-1.0); Monocytes % 6.8 % (1.7-9.3); Neutrophils # 1.8 K/mm3 (1.8-7.8); Neutrophils % 37.4 % (37.0-80.0); Platelet Count 136 K/mm3 (142-424); Red Blood Count 5.05 M/mm3 (4.60-6.20); Red Cell Distribution Width 15.9 % (11.5-17.5); White Blood Count 4.8 K/mm3 (4.8-10.8)
[2020-12-26 09:49] LABS: MANUAL DIFFERENTIAL MANUAL DIFFERENTIAL (MANUAL DIFF)
[2020-12-26 10:01] LABS: Alanine Aminotransferase 35 U/L (12-78); Albumin Level 3.1 g/dl (3.5-5.0); Alkaline Phosphatase 323 U/L (38-126); Anion Gap 5.4 mEq/L (5-15); Aspartate Amino Transferase 63 U/L (17-59); Blood Urea Nitrogen 11 mg/dl (9-20); Carbon Dioxide 30 mmol/L (22.0-30.0); Chloride 109 mmol/L (98-107); Estimated Glomerular Filt Rate 83 ml/min (>60); GFR (African American) 100 ML/MIN (>60); Glucose 120 mg/dl (74-100); Potassium 4.4 mmoL/L (3.5-5.1); Sodium 140 mmol/L (136-145); Total Protein,Serum 6.1 g/dl (6.3-8.2)
[2020-12-26 10:14] LABS: Hemoglobin A1C 6.1 % (4.0-6.0)
[2020-12-26 10:53] LABS: Lymphocytes % 64 % (10-50); Monocytes % 3 % (2-9); Neutrophils % 33 % (42-76); Platelet Estimate Normal; Total Cells Counted 100
[2020-12-27 12:37] LABS: Hep A Ab, IgM Negative (Negative); Hepatitis B Core Antibody IgM Negative (Negative); Hepatitis B Surface Antigen Negative (Negative); Hepatitis C Antibody <0.1 s/co ratio (0.0-0.9)
== END ==
PROVIDERS: Visit Provider Physician Assistant
DX: D69.6 Thrombocytopenia, unspecified (principal); R73.9 Hyperglycemia, unspecified; R94.5 Abnormal results of liver function studies
CPT/HCPCS: 36415; 80053; 80074; 83036; 85007; 85025

== ENCOUNTER → 2020-12-28 08:43 | Outpatient (CLI) | payer MEDICARE, SELFPAY ==
--- NOTE | 2020-12-28 08:45 | US_ITS ---
PROCEDURE: US ABDOMEN LIMITED CLINICAL INDICATION: ELEVATED LIVER FUNCTION TEST COMPARISON: US US ABD. AORTA SCREENING from 09/07/[address] ABDOMEN PELVIS WO CON from 10/10/2020 FINDINGS: PANCREAS: Unremarkable. No obvious mass or abnormal fluid collection. No ductal dilatation LIVER: No focal liver lesions demonstrated. Homogeneous echogenicity. No intrahepatic biliary ductal dilatation evident. There is appropriate direction of blood flow within a non dilated portal vein. There is a small amount of perihepatic fluid. RIGHT KIDNEY: Unremarkable. Normal size and echogenicity. No hydronephrosis. Small stone suspected along the lower pole of the right kidney. GALLBLADDER: Gallbladder wall slightly thickened at 4 mm. No gallstones are demonstrated. No biliary dilatation. The common bile duct measures 3 mm. IMPRESSION: 1. Small amount of ascites 2. Mildly thickened gallbladder wall. No gallstones apparent. 3. Nonobstructing right nephrolithiasis. Dictated by: Cory Guillory MD 12/28/2020 15:55 Cory Guillory MD in [place] 12/28/2020 15:55
== END ==
PROVIDERS: PCP Physician Assistant; Visit Provider Physician Assistant
DX: R79.89 Other specified abnormal findings of blood chemistry (principal); R94.5 Abnormal results of liver function studies
CPT/HCPCS: 76705

== ENCOUNTER → 2021-03-13 09:07 | Outpatient (CLI) | payer MEDICARE, SELFPAY ==
[2021-03-13 09:48] LABS: Basophils # 0.2 K/mm3 (0-0.2); Basophils % 3.9 % (0.1-2.0); Eosinophils # 0.1 K/mm3 (0.0-0.4); Eosinophils % 2.6 % (0.1-12.0); Hematocrit 48.9 % (42.0-52.0); Hemoglobin 15.9 g/dL (14.1-18.0); Lymphocytes # 2.3 K/mm3 (0.7-4.5); Lymphocytes % 44.4 % (10-50); Mean Corpuscular HGB Conc 32.4 g/dL (31.8-35.4); Mean Corpuscular Hemoglobin 29.1 pg (27.0-31.2); Mean Corpuscular Volume 89.8 fl (80-94); Mean Platelet Volume 9.7 fl (7.4-10.4); Monocytes # 0.3 K/mm3 (0.1-1.0); Monocytes % 5.4 % (1.7-9.3); Neutrophils # 2.3 K/mm3 (1.8-7.8); Neutrophils % 43.7 % (37.0-80.0); Platelet Count 82 K/mm3 (142-424); Red Blood Count 5.44 M/mm3 (4.60-6.20); Red Cell Distribution Width 14.3 % (11.5-17.5); White Blood Count 5.3 K/mm3 (4.8-10.8)
[2021-03-13 09:59] LABS: INR 1.11 (0.9-1.1); Prothrombin Time 12.4 seconds (10.1-12.5)
[2021-03-13 10:49] LABS: Alanine Aminotransferase 41 U/L (12-78); Albumin Level 3.7 g/dl (3.5-5.0); Albumin/Globulin Ratio 1.3 (1.1-1.8); Alkaline Phosphatase 316 U/L (38-126); Anion Gap 8.5 mEq/L (5-15); Aspartate Amino Transferase 73 U/L (17-59); Bilirubin,Total 0.8 mg/dl (0.2-1.3); Blood Urea Nitrogen 12 mg/dl (9-20); Calcium 9.5 mg/dl (8.4-10.2); Carbon Dioxide 32 mmol/L (22.0-30.0); Chloride 103 mmol/L (98-107); Estimated Glomerular Filt Rate 66 ml/min (>60); GFR (African American) 79 ML/MIN (>60); Globulin 2.9 g/dL (1.3-3.2); Glucose 137 mg/dl (74-100); Potassium 4.5 mmoL/L (3.5-5.1); Sodium 139 mmol/L (136-145); Total Protein,Serum 6.6 g/dl (6.3-8.2)
== END ==
PROVIDERS: Visit Provider Physician Assistant
DX: R18.8 Other ascites (principal)
CPT/HCPCS: 36415; 80053; 85025; 85610

== ENCOUNTER → 2021-04-16 09:49 | Outpatient (CLI) | payer MEDICARE, SELFPAY ==
[2021-04-17 06:40] LABS: Covid-19 Nasal PCR Sendout Lex POSITIVE
== END ==
PROVIDERS: PCP Physician Assistant; Visit Provider Nurse Practitioner
DX: Z01.812 Encounter for preprocedural laboratory examination (principal); U07.1 COVID-19; R18.8 Other ascites
CPT/HCPCS: C9803; U0004; U0005

== ENCOUNTER → 2021-07-16 08:20 | Outpatient (CLI) | payer MEDICARE, SELFPAY ==
[2021-07-16 09:01] LABS: Chloride 106 mmol/L (98-107); Potassium 5.1 mmoL/L (3.5-5.1); Sodium 140 mmol/L (136-145)
[2021-07-16 09:03] LABS: Blood Urea Nitrogen 24 mg/dl (9-20)
[2021-07-16 09:04] LABS: Alanine Aminotransferase 34 U/L (12-78); Albumin/Globulin Ratio 1.5 (1.1-1.8); Alkaline Phosphatase 133 U/L (38-126); Anion Gap 11.1 mEq/L (5-15); Aspartate Amino Transferase 46 U/L (17-59); Bilirubin,Total 0.8 mg/dl (0.2-1.3); Calcium 9.9 mg/dl (8.4-10.2); Carbon Dioxide 28 mmol/L (22.0-30.0); Cholesterol 182 mg/dl (140-200); Estimated Glomerular Filt Rate 73 ml/min (>60); GFR (African American) 89 ML/MIN (>60); Globulin 2.7 g/dL (1.3-3.2); Glucose 115 mg/dl (74-100); Total Protein,Serum 6.7 g/dl (6.3-8.2); Triglycerides 332 mg/dl (30-150); VLDL Cholesterol 66 mg/dL (0-40)
[2021-07-16 09:05] LABS: Chol/HDL Ratio 4.2 (1-3.5); HDL Cholesterol 43 mg/dl (40-60)
[2021-07-16 09:16] LABS: Direct LDL Cholesterol 74.69 mg/dL (100-129)
== END ==
PROVIDERS: PCP Physician Assistant; Visit Provider Physician Assistant
DX: E78.1 Pure hyperglyceridemia (principal); D69.6 Thrombocytopenia, unspecified; K74.60 Unspecified cirrhosis of liver
CPT/HCPCS: 36415; 80053; 80061

== ENCOUNTER → 2021-07-31 10:55 | Outpatient (POV) | payer MEDICARE, SELFPAY | PROVIDERS: Visit Provider Dermatology | DX: Z00.00 Encounter for general adult medical examination without abnormal findings (principal) ==

== ENCOUNTER → 2021-10-29 12:48 | Outpatient (CLI) | payer MEDICARE, SELFPAY ==
--- NOTE | 2021-10-29 12:58 | CT_ITS ---
FINAL REPORT TECHNIQUE: Axial images were obtained from the lung apex to the mid abdomen by computed tomography. This study was performed with techniques to keep radiation doses as low as reasonably achievable (ALARA). Individualized dose reduction techniques using automated exposure control or adjustment of mA and/or kV according to the patient's size were employed. CLINICAL HISTORY: H/O NICOTINE DEPENDENCE SMOKER, 1.5 ppd x 55 years emphysema hx of skin cancer COMPARISON: 09/07/2019 in 07/03/2018 FINDINGS: CHEST CT LOW DOSE CTDI vol (mGy): 2.90 DLP (mGy-cm): 110.46 There is no axillary adenopathy. There is no hilar or mediastinal adenopathy. The heart is normal in size. There is no pericardial or pleural effusion. There is mild scarring and emphysema. There are several calcified granulomas. There is a stable 2 mm nodule in the right upper lobe well seen on image 31. There are several other less than 3 mm nodules which are stable. No new mass or nodule is identified. There is partially imaged wall thickening of the descending duodenum, nonspecific. Multiple bilateral renal stones are seen measuring up to 4 mm. There is a partially imaged stone in the right renal pelvis measuring 6 mm. Findings are all new since previous. IMPRESSION: Wall thickening of the descending duodenum which is nonspecific. Consider upper endoscopy. New bilateral renal stones. Lung RADS category 1S. Recommend 12 month follow-up low-dose chest CT. Reviewed, Interpreted and Dictated by Pb Degroot III, MD Transcribed by Elisabet Arreguin Authenticated and [facility]
== END ==
PROVIDERS: PCP Physician Assistant; Visit Provider Physician Assistant
DX: Z87.891 Personal history of nicotine dependence (principal); Z12.2 Encounter for screening for malignant neoplasm of respiratory organs
CPT/HCPCS: 71271

== ENCOUNTER → 2022-03-14 14:24 | Outpatient (CLI) | payer MEDICARE, SELFPAY ==
--- NOTE | 2022-03-14 14:31 | XR_ITS ---
FINAL REPORT CLINICAL HISTORY: BRONCHITIS COMPARISON: 09/16/2020 FINDINGS: TWO-VIEW CHEST The heart size is normal. The mediastinum is normal. The lungs are hyperinflated consistent with COPD. There is a small right effusion. There is no pneumothorax. IMPRESSION: Small right effusion. Reviewed, Interpreted and Dictated by Pb Degroot III, MD Transcribed by Elisabet Arreguin Authenticated and [facility]
== END ==
PROVIDERS: PCP Physician Assistant; Visit Provider Physician Assistant
DX: J40 Bronchitis, not specified as acute or chronic (principal)
CPT/HCPCS: 71046

== ENCOUNTER → 2022-07-02 07:47 | Outpatient (CLI) | payer MEDICARE, SELFPAY ==
--- NOTE | 2022-07-02 07:53 | US_ITS ---
FINAL REPORT CLINICAL HISTORY: HEPATIC FIBROSIS FINDINGS: Sonographic images of the right upper quadrant were obtained. The pancreas is partially obscured.The liver has an unremarkable appearance.The gallbladder appears normal without evidence of gallstones.There is no evidence of biliary ductal dilatation.The common duct measures 5 mm. The right kidney measures 8.6 cm in length. There is moderate hydronephrosis and a probable 9 mm stone in the upper pole. IMPRESSION: Moderate right hydronephrosis with a probable 9 mm stone in the upper pole. Otherwise unremarkable exam. Reviewed, Interpreted and Dictated by Pb Degroot III, MD Transcribed by Adriana Moore Authenticated and [facility]
[2022-07-02 08:40] LABS: Basophils # 0.1 K/mm3 (0-0.2); Basophils % 1.2 % (0.1-2.0); Eosinophils # 0.3 K/mm3 (0.0-0.4); Hematocrit 51.5 % (42.0-52.0); Hemoglobin 16.6 g/dL (14.1-18.0); Lymphocytes # 2.3 K/mm3 (0.7-4.5); Lymphocytes % 26.9 % (10-50); Mean Corpuscular HGB Conc 32.3 g/dL (31.8-35.4); Mean Corpuscular Hemoglobin 26.7 pg (27.0-31.2); Mean Corpuscular Volume 82.7 fl (80-94); Mean Platelet Volume 8.1 fl (7.4-10.4); Monocytes # 0.4 K/mm3 (0.1-1.0); Monocytes % 4.9 % (1.7-9.3); Neutrophils # 5.5 K/mm3 (1.8-7.8); Neutrophils % 64.1 % (37.0-80.0); Platelet Count 184 K/mm3 (142-424); Red Blood Count 6.22 M/mm3 (4.60-6.20); Red Cell Distribution Width 14.9 % (11.5-17.5); White Blood Count 8.6 K/mm3 (4.8-10.8)
[2022-07-02 08:49] LABS: INR 1.01 (0.9-1.1); Prothrombin Time 10.9 seconds (10.1-12.5)
[2022-07-02 09:13] LABS: Alanine Aminotransferase 22 U/L (12-78); Albumin Level 4.2 g/dl (3.5-5.0); Albumin/Globulin Ratio 1.5 (1.1-1.8); Alkaline Phosphatase 93 U/L (38-126); Anion Gap 10.1 mEq/L (5-15); Aspartate Amino Transferase 33 U/L (17-59); Bilirubin,Total 0.8 mg/dl (0.2-1.3); Blood Urea Nitrogen 14 mg/dl (9-20); Calcium 9.4 mg/dl (8.4-10.2); Carbon Dioxide 33 mmol/L (22.0-30.0); Chloride 101 mmol/L (98-107); Estimated Glomerular Filt Rate 54 ml/min (>60); GFR (African American) 65 ML/MIN (>60); Globulin 2.8 g/dL (1.3-3.2); Glucose 109 mg/dl (74-100); Potassium 4.1 mmoL/L (3.5-5.1); Sodium 140 mmol/L (136-145)
[2022-07-03 15:01] LABS: AFP, Tumor Marker 6.7 ng/mL (0.0-8.4)
== END ==
LOC: RAD 07:48 → LAB 07:54
PROVIDERS: PCP Physician Assistant; Visit Provider Physician Assistant
DX: R71.8 Other abnormality of red blood cells; Z79.899 Other long term (current) drug therapy; K74.60 Unspecified cirrhosis of liver
CPT/HCPCS: 36415; 76705; 80053; 82105; 85025; 85610

== ENCOUNTER → 2022-11-07 10:54 | Outpatient (CLI) | payer MEDICARE, SELFPAY ==
--- NOTE | 2022-11-07 11:02 | XR_ITS ---
FINAL REPORT CLINICAL HISTORY: RT WRIST PAIN FINDINGS: Right wrist Three views were obtained. There is no acute fracture or dislocation. The joint spaces appear normal. No soft tissue abnormality is identified. IMPRESSION: No acute process. Reviewed, Interpreted and Dictated by Dick Sheriff MD Transcribed by Elisabet Arreguin Authenticated and [facility]
== END ==
PROVIDERS: PCP Family Medicine; Visit Provider Physician Assistant
DX: M25.531 Pain in right wrist (principal)
CPT/HCPCS: 73110

== ENCOUNTER 2023-11-11 07:02 | Outpatient (CLI) | payer MEDICARE, SELFPAY ==
--- NOTE | 2023-11-11 07:05 | CT_ITS ---
FINAL REPORT CLINICAL HISTORY: Current smoker with [id number] history COMPARISON: 10/29/2021 FINDINGS: Axial images were obtained from the lung apex to the mid abdomen by computed tomography. Low-dose protocol was utilized. CTDl vol(mGy): 2.90 DLP (mGy-cm): 106.55 FINDINGS: There is no axillary adenopathy. There is no hilar or mediastinal adenopathy. The heart size is normal. There is mild elevation of the left hemidiaphragm. There is no pericardial or pleural effusion. Mild changes of centrilobular emphysema are seen. There is biapical pleural and parenchymal scarring. Lung window images demonstrate a stable 3 mm nodule in the anterior right upper lobe seen on image 82. There is a stable, tiny nodule in the 2 mm periphery of the left upper lobe on image 55 of series 2. Limited images of the upper abdomen demonstrate bilateral renal stones measuring up to 6 mm. IMPRESSION: Stable pulmonary nodules. Lung RADS category 2. Recommend 12 month follow-up low-dose chest CT. Reviewed, Interpreted and Dictated by Dick Sheriff MD Transcribed by Liv Lamb Authenticated and [facility]
== END 2023-11-11 23:59 | disposition home or self-care (01) ==
LOC: RAD 07:03
PROVIDERS: PCP Family Medicine; Visit Provider Family Medicine
DX: F17.210 Nicotine dependence, cigarettes, uncomplicated (principal)
CPT/HCPCS: 71271

== ENCOUNTER 2024-01-19 09:26 | Day surgery (SDC) | payer MEDICARE, SELFPAY ==
[2024-01-14 14:58] VITALS: BMI 50.5
[2024-01-19] VITALS (7 sets, daily range): BP systolic 99–161; BP diastolic 60–96; PULSE 66–74; RESP 16–18; TEMP 36.2–36.4; O2SAT 97–98
--- NOTE | 2024-01-19 09:46 | P.PNANES_ITS ---
[facility] Disclaimer: The information contained in this section may have been updated after the patient was seen, as this information can be updated by other users. Medical History (Updated 01/14/24 @ 15:04 by Joie Jones RN) GERD (gastroesophageal reflux disease) Chronic kidney disease Hyperlipidemia Family History (Updated 01/14/24 @ 15:02 by Joie Jones RN) Other No significant family history Social History (Updated 01/14/24 @ 15:01 by Joie Jones RN) Smoking Status: Current every day smoker tobacco type: cigarettes packs per day: 1 alcohol intake: former substance use type: denies use current occupational status: retired Travel in the last 8 weeks: None household members: spouse and other housing: house caffeine: Yes [facility] Anesthesia Checklist Patient Identification Patient Identification: Arm Band and Verbal (Name & ) Structural Data Admitted From: Home Planned Operative Procedure/s: Colonoscopy Consent for Planned Operative Procedure(s) Verified: Yes Verified Documents: Surgical Consent and History and Physical NPO Status Verified Time NPO: 00:00 Chart Verification Results Verified: CBC and BMP Additional verifications Patient : No Anesthesia Reactions: No Cardiovascular Assessment Heart Sounds: S1 & S2 Pulse Rhythm: Irregular Peripheral Edema: No Airway Assessment Mallampati Score:: Class II C-Spine Mobility Assessed: Yes TMJ Mobility Assessed: Yes Dentition: Poor Dentition (Nothing loose per pt.) Neurological Assessment Level of Consciousness: Awake, Alert, Appropriate and Follows Commands Hx Seizures: No Numbness or tingling in extremities: No Anesthesia Plan Anesthesia Risk discussed: Yes Anesthesia Plan: Verified ASA Class: III Anesthesia Type: MAC
[2024-01-19] MEDS: LACTATED RINGERS 1000ML 1,000 ML 100 ML IV (09:50)
--- NOTE | 2024-01-19 10:34 | P.HP_ITS ---
History of Present Illness *Admission Date: 01/19/24 *Reason for visit:: Personal history of adenomatous polyps *History of present illness: Mr. Bey is a 78-year-old gentleman who is here for surveillance colonoscopy secondary to a personal history of adenomatous polyps. The examina tion is deemed medically necessary for colonoscopy. The patient has been seen, interviewed and examined prior to the procedure by both myself and the anesthesia provider. [facility] Disclaimer: The information contained in this section may have been updated after the patient was seen, as this information can be updated by other users. Medical History (Updated 01/19/24 @ 10:35 by Neli Parr II, MD) History of skin cancer GERD (gastroesophageal reflux disease) Chronic kidney disease Hyperlipidemia Surgical History (Updated 01/19/24 @ 09:52 by Evette Simms RN) History of liver biopsy History of amputation of finger of left hand Family History Other No significant family history Social History Smoking Status: Current every day smoker tobacco type: cigarettes packs per day: 1 alcohol intake: former substance use type: denies use current occupational status: retired Travel in the last 8 weeks: None household members: spouse and other housing: house caffeine: Yes Other Medical History Have you received the Flu Vaccine for this season: No Have you received the Pneumonia Vaccine: Yes Review of Systems Review of Systems Review of systems (narrative): Negative *Cardiovascular Comments: Negative *Gastrointestinal Comments: Negative *Genitourinary Comments: Negative *Musculoskeletal Comments: Negative *Neurologic Comments: Negative Meds Home Medications and Allergies Home Medications ?Medication ?Instructions ?Recorded ?Confirmed ?Type atorvastatin 10 mg tablet (Lipitor) 10 mg PO DAILY cholestrol 08/11/18 01/19/24 History niacin 250 mg tablet,extended 250 mg PO DAILY cholestrol 08/11/18 01/19/24 History release (Slo-Niacin) atorvastatin 10 mg tablet (Lipitor) 10 mg PO DAILY 01/14/24 01/19/24 History furosemide 20 mg tablet (Lasix) 20 mg PO DAILY 01/14/24 01/19/24 History icosapent ethyl 1 gram capsule 1 g PO DAILY 01/14/24 01/19/24 History (Vascepa) tamsulosin 0.4 mg capsule (Flomax) 0.4 mg PO HS 01/14/24 01/19/24 History New Prescriptions to Start Prescriptions: Allergies Allergy/AdvReac Type Severity Reaction Status Date / Time morphine Allergy Flushing Verified 01/19/24 09:52 Acetaminophen Allergy Unknown Palpitation Uncoded 01/19/24 09:52 s Exam Data for Last 24 hours Vital signs and Labs for Last 24 Hours: Temp Pulse Resp BP Pulse Ox O2 Del Method 97.1 F L 73 18 161/95 H 97 Room Air 01/19/24 09:55 01/19/24 09:55 01/19/24 09:55 01/19/24 09:55 01/19/24 09:55 01/19/24 09:55 *Routine HEENT Exam Head: Present normocephalic Eye: Present EOMI and PERRL ENT: Present mucous membranes moist *Routine Neck Exam Neck: Present supple *Routine Respiratory Exam Respiratory: Present CTA bilaterally *Routine Cardiovascular Exam Cardiovascular: Present RRR *Routine Abdominal Exam Abdominal: Present soft and normoactive bowel sounds; Absent tenderness *Routine Rectal Exam Rectal:: deferred *Routine Genitalia Exam Genitalia:: deferred *Routine Extremities Exam Extremities: Absent cyanosis, clubbing or edema *Routine Skin Exam Skin: Present warm; Absent rash *Routine Neurological Exam Neurological: Present alert and oriented X3 Assessment and Plan *Assessment and plan (1) Personal history of adenomatous and serrated colon polyps: Status: Acute Category: Medical Code(s): Z86.0101 - Personal history of adenomatous and serrated colon polyps Plan A/P: 1. Personal history of adenomatous polyps/surveillance is the preprocedural diagnosis. The patient will be anesthetized/sedated using MAC sedation. The patient has been seen and examined. Cardiac and lung assessment prior to the examination is stable. Proceed with planned colonoscopy
--- NOTE | 2024-01-19 10:36 | HMH.PROCNOTE ---
[facility] Procedure Note Date: 01/19/24 Time: 10:59 Procedure Note:: Colonoscopy Procedure Report: Colonoscopy with cold snare polypectomy Endoscopist: Neil Parr II, MD Referring physician: Krishan Linder MD Date of Procedure: January 19, 2024 Equipment: Olympus 190 variable stiffness pediatric colonoscope Sedation: MAC sedation Indication: Mr. Bey is a 78-year-old gentleman who is here for follow-up surveillance colonoscopy. The patient did have a colonoscopy with [facility] in August 2018 and had 7 polyps (tubular adenomas x 3/hyperplastic polyps x 4) removed. He reports no abdominal pain, weight loss, change in his bowel habits or rectal bleeding. He reports no family history of colon cancer. Procedure: Prior to the procedure, a history and physical exam was performed, and patient's medications and allergies were reviewed. The risks, benefits and alternatives of the sedation and procedure were discussed with the patient. All questions were answered and informed consent was obtained. The patient was brought to the procedure room. Patient identification and proposed procedure were verified by the physician and the nurse. The patient was placed in a left lateral decubitus position and the scope was passed under direct vision. Throughout the procedure, the patient's blood pressure, pulse, and oxygen saturations were monitored continuously. The colonoscopy was accomplished without difficulty. The patient tolerated the procedure well. Findings: On digital rectal examination there was normal rectal tone. There were no external hemorrhoids. The prostate was 2+, mildly firm but symmetric without nodules. The colonoscope was introduced through the anal canal to the rectum and advanced to the cecum. The ileocecal valve and appendiceal orifice were identified. The scope was advanced a short distance into the ileum which appeared grossly normal. The scope was then withdrawn into the colon. There were 5 diminutive polyps (cecum x 3 (3, 3 and 4 mm), descending x 1 (4 mm) and rectum x 1 (3 mm)). These were all removed via cold snare polypectomy. The cecum, ascending and transverse colon and mucosa were grossly normal. There were scattered diverticuli throughout the descending and sigmoid colon (LEFT colon). The rectum itself was normal. Upon retroflexion within the rectum there were grade 1-2 internal hemorrhoids. The preparation was excellent throughout with [place] Preparation Score of 9. The cecal time was 12 minutes. Impression: 1. Diminutive colonic polyps x 5 (3 and 4 mm) 2. Left-sided diverticulosis 3. Grade 1-2 internal hemorrhoids Plan: I will follow-up the polyp histology. I suspect that most of these are hyperplastic and are diminutive. Based upon his age, I am not convinced that he needs further surveillance colonoscopy. I will discuss the findings with the patient and family. I would encourage psyllium bulking fiber supplementation on a long-term daily maintenance basis.
== END 2024-01-19 11:40 | disposition home or self-care (01) ==
PROVIDERS: PCP Physician Assistant; Visit Provider Internal Medicine Gastroenterology
PROC: 0DJD8ZZ Inspection of Lower Intestinal Tract, Via Natural or Artificial Opening Endoscopic (ICD-10-PCS; CPT 45378; principal; 2024-01-19 11:00)
DX: Z12.11 Encounter for screening for malignant neoplasm of colon (principal); D12.4 Benign neoplasm of descending colon; K62.1 Rectal polyp; D12.0 Benign neoplasm of cecum; K57.30 Diverticulosis of large intestine without perforation or abscess without bleeding; K64.1 Second degree hemorrhoids; Z86.0101 Personal history of adenomatous and serrated colon polyps; F17.210 Nicotine dependence, cigarettes, uncomplicated; Z79.899 Other long term (current) drug therapy
CPT/HCPCS: 45385; 88305; J7120

== ENCOUNTER 2024-04-23 16:04 | Inpatient (IN) | payer MEDICARE, SELFPAY ==
[2024-04-23 16:16] VITALS: O2SAT 95
[2024-04-23 16:26] VITALS: BP 142/61; PULSE 103; RESP 18; TEMP 36.8; O2SAT 95; BMI 22.6
--- NOTE | 2024-04-23 16:27 | PC.NURSE ---
arrived by w/c from front lobby admissions
[2024-04-23 16:50] VITALS: BMI 22.6
[2024-04-23 16:57] LABS: Basophils # 0.1 K/mm3 (0-0.2); Basophils % 0.6 % (0.1-2.0); Eosinophils # 0.6 K/mm3 (0.0-0.4); Eosinophils % 5.2 % (0.1-12.0); Hematocrit 48.7 % (42.0-52.0); Lymphocytes % 7.8 % (10-50); Mean Corpuscular HGB Conc 32.9 g/dL (31.8-35.4); Mean Corpuscular Hemoglobin 27.2 pg (27.0-31.2); Mean Corpuscular Volume 82.7 fl (80-94); Mean Platelet Volume 10.1 fl (7.4-10.4); Monocytes # 1.1 K/mm3 (0.1-1.0); Monocytes % 8.9 % (1.7-9.3); Neutrophils # 9.4 K/mm3 (1.8-7.8); Platelet Count 157 K/mm3 (142-424); Red Blood Count 5.89 M/mm3 (4.60-6.20); Red Cell Distribution Width 14.6 % (11.5-17.5); White Blood Count 12.3 K/mm3 (4.8-10.8)
[2024-04-23 17:06] LABS: Chloride 99 mmol/L (98-107); Potassium 4.5 mmoL/L (3.5-5.1); Sodium 134 mmol/L (136-145)
[2024-04-23 17:08] LABS: Blood Urea Nitrogen 18 mg/dl (9-20); Creatinine Clearance Estimated 63 mL/min (50-200); Estimated Glomerular Filt Rate 82 ml/min (>60); GFR (African American) 99 ML/MIN (>60)
[2024-04-23 17:09] LABS: Anion Gap 12.5 mEq/L (5-15); Calcium 9.2 mg/dl (8.4-10.2); Carbon Dioxide 27 mmol/L (22.0-30.0); Glucose 136 mg/dl (74-100); Magnesium 1.6 mg/dl (1.6-2.3)
--- NOTE | 2024-04-23 17:14 | P.HP_ITS ---
History of Present Illness *Admission Date: 04/23/24 *Reason for visit:: hypoxia *History of present illness: Mr. Bey is a 78-year-old male with a history of polymyalgia rheumatica, COPD, hepatic cirrhosis, thrombocytopenia, history of malignant melanoma of the eye, and hypertriglyceridemia who presented to the office to [facility] today with sore throat, cough, shortness of breath, headache, and bodyaches. He has been around his son who had the flu and he began having symptoms last night. He and his are both ill. His rapid flu and COVID tests in the office were negative. His oxygen was 82 to 85% on room air. Oxygen was placed on the patient and he was admitted for further evaluation and treatment. [facility] Disclaimer: The information contained in this section may have been updated after the patient was seen, as this information can be updated by other users. Medical History (Updated 04/23/24 @ 17:23 by MARY Borjas) History of malignant melanoma of eye Thrombocytopenia Hepatic cirrhosis COPD (chronic obstructive pulmonary disease) Polymyalgia rheumatica History of skin cancer GERD (gastroesophageal reflux disease) Chronic kidney disease Hyperlipidemia Surgical History (Updated 04/23/24 @ 17:20 by MARY Borjas) History of colonoscopy History of liver biopsy History of amputation of finger of left hand Family History (Updated 04/23/24 @ 17:20 by MARY Borjas) Other Coronary artery disease Heart attack Social History Smoking Status: Current every day smoker tobacco type: cigarettes packs per day: 1 alcohol intake: former substance use type: denies use current occupational status: retired Travel in the last 8 weeks: None household members: spouse and other housing: house caffeine: Yes Have you lived/traveled outside [place] in past 30 days?: No Contact w/someone who lives/traveled outside US past 30 days?: No Exposure to someone with infectious disease in past 14 days?: Yes Do you have a fever (greater than 100.4 F or 38 C)?: No Have you tested positive for COVID-19: No Exposed to someone with COVID-19 in past 14 days?: No Do you have a sore throat?: No Do you have a cough?: Yes Do you have any weakness?: No Do you have any diarrhea?: No Are you experiencing any unusual bleeding?: No Do you have any muscle aches/pain?: No Do you have any abdominal pain?: No Are you experiencing loss of taste or smell?: No Other Medical History Have you received the Flu Vaccine for this season: Yes Have you received the Pneumonia Vaccine: Yes Review of Systems Constitutional Constitutional: Reports body ache(s), Reports chills, Reports fatigue, Reports fever(s), Reports headache(s), Reports poor appetite and Reports malaise Eyes Eyes: Denies blurry vision and Denies diplopia ENT Ears, Nose, Mouth, and Throat: Reports headache(s), Reports nasal congestion, Reports sore throat and Reports vertigo *Cardiovascular Cardiovascular: Denies chest pain and Reports dyspnea *Respiratory Respiratory: Reports chest congestion, Reports cough, Reports dyspnea and Reports wheezing *Gastrointestinal Gastrointestinal: Denies abdominal pain, Denies loose stools, Denies nausea and Denies vomiting *Genitourinary Genitourinary: Denies difficulty urinating and Denies dysuria *Musculoskeletal Musculoskeletal: Reports arthralgias and Reports myalgias *Neurologic Neurologic: Reports headache(s) and Reports vertigo Endocrine Endocrine: Reports fatigue Allergic/Immunologic Allergic/Immunologic: Reports wheezing Meds Home Medications and Allergies Home Medications ?Medication ?Instructions ?Recorded ?Confirmed ?Type atorvastatin 10 mg tablet (Lipitor) 10 mg PO DAILY 01/14/24 04/23/24 History furosemide 20 mg tablet (Lasix) 20 mg PO DAILY 01/14/24 04/23/24 History icosapent ethyl 1 gram capsule 1 g PO DAILY 01/14/24 04/23/24 History (Vascepa) multivitamin 1 tab PO DAILY 04/23/24 04/23/24 History nadolol 20 mg tablet 20 mg PO DAILY 04/23/24 04/23/24 History polyethylene glycol 3350 17 gram 17 g PO DAILY 04/23/24 04/23/24 History oral powder packet (Miralax) prednisone 5 mg tablet 5 mg PO DAILY 04/23/24 04/23/24 History tiotropium 2.5 mcg-olodaterol 2.5 2 puff inhalation BID 04/23/24 04/23/24 History mcg/actuation mist for inhalation (Stiolto Respimat) New Prescriptions to Start Prescriptions: Allergies Allergy/AdvReac Type Severity Reaction Status Date / Time morphine Allergy Flushing Verified 01/19/24 09:52 Acetaminophen Allergy Unknown Palpitation Uncoded 01/19/24 09:52 s Exam Data for Last 24 hours Vital signs and Labs for Last 24 Hours: Temp Pulse Resp BP Pulse Ox O2 Del Method O2 Flow Rate 98.2 F 103 H 18 142/61 H 95 Nasal Cannula 2 04/23/24 16:26 04/23/24 16:26 04/23/24 16:26 04/23/24 16:26 04/23/24 16:26 04/23/24 17:00 04/23/24 17:00 Laboratory Results - last 24 hr 04/23/24 16:44: WBC 12.3 H, RBC 5.89, Hgb 16.0, Hct 48.7, MCV 82.7, MCH 27.2, MCHC 32.9, RDW 14.6, Plt Count 157, MPV 10.1, Neut % (Auto) 77.0, Lymph % (Auto) 7.8 L, [place] % (Auto) 8.9, Eos % (Auto) 5.2, Baso % (Auto) 0.6, Neut # (Auto) 9.4 H, Lymph # (Auto) 1.0, [place] # (Auto) 1.1 H, Eos # (Auto) 0.6 H, Baso # (Auto) 0.1 I & O for Last 24 hours: Intake & Output 04/21/24 04/22/24 04/23/24 04/24/24 11:59 11:59 11:59 11:59 Weight 157 lb 5 oz Constitutional Constitutional: mild distress *Routine HEENT Exam Head: Present normocephalic and atraumatic Eye: Present EOMI and PERRL ENT: Present mucous membranes dry *Routine Neck Exam Neck: Present supple and full ROM *Routine Respiratory Exam Respiratory: Present rhonchi and wheezes *Routine Cardiovascular Exam Cardiovascular: Present RRR *Routine Abdominal Exam Abdominal: Present soft and normoactive bowel sounds; Absent tenderness *Routine Rectal Exam Rectal:: deferred *Routine Genitalia Exam Genitalia:: deferred *Routine Extremities Exam Extremities: Absent cyanosis, clubbing or edema *Routine Skin Exam Skin: Present intact; Absent erythema *Routine Neurological Exam Neurological: Present alert and oriented X3 Assessment and Plan *Assessment and plan (1) Hypoxia: Status: Acute Category: Medical Code(s): R09.02 - Hypoxemia (2) Bronchitis: Status: Acute Category: Medical Code(s): J40 - Bronchitis, not specified as acute or chronic (3) COPD (chronic obstructive pulmonary disease): Status: Acute Category: Medical Code(s): J44.9 - Chronic obstructive pulmonary disease, unspecified (4) Polymyalgia rheumatica: Status: Acute Category: Medical Code(s): M35.3 - Polymyalgia rheumatica (5) Hepatic cirrhosis: Status: Acute Category: Medical Code(s): K74.60 - Unspecified cirrhosis of liver Plan Patient likely has the flu due to his recent exposure. Will get a mini respiratory panel, labs, and a CXR. Will start on nebs and oxygen. Dr. Darling entry - Saw patient, agree with above note. He likely has flu A. Close contact tested positive today, will start Tamiflu now.
[2024-04-23] MEDS: 0.9 % SODIUM CHLORIDE 1000ML 1,000 ML 50 ML IV (17:38)
[2024-04-23] MEDS: IPRATROPIUM/ALBUTEROL 3 ML NEB IH (18:18)
[2024-04-23] MEDS: SODIUM CHLORIDE 3% 15ML NEB 3 ML IH (18:18)
[2024-04-23 18:22] VITALS: PULSE 80; PULSE 82; RESP 18
[2024-04-23 18:24] VITALS: O2SAT 94
[2024-04-23] MEDS: OSELTAMIVIR 75MG CAPSULE 75 MG PO (18:40)
--- NOTE | 2024-04-23 19:30 | ECG_ITS ---
APPROVED REPORT Exam: Resting ECG HR:89 bpm ECG Measurements Heart Rate 89 AXES DC 159 P 72 QRSd 86 QRS 40 QT 345 T 74 QTc 392 Conclusion SINUS RHYTHM NORMAL ECG UNCONFIRMED REPORT Electronically signed by : Wayne Salas MD 04/24/2024 09:38:16
[2024-04-23 19:34] LABS: Alanine Aminotransferase 32 U/L (12-78); Albumin Level 4.1 g/dl (3.5-5.0); Albumin/Globulin Ratio 1.6 (1.1-1.8); Alkaline Phosphatase 74 U/L (38-126); Anion Gap 16.1 mEq/L (5-15); Aspartate Amino Transferase 52 U/L (17-59); Bilirubin,Total 0.7 mg/dl (0.2-1.3); Blood Urea Nitrogen 19 mg/dl (9-20); Calcium 9.2 mg/dl (8.4-10.2); Carbon Dioxide 25 mmol/L (22.0-30.0); Chloride 97 mmol/L (98-107); Creatinine Clearance Estimated 63 mL/min (50-200); Estimated Glomerular Filt Rate 82 ml/min (>60); GFR (African American) 99 ML/MIN (>60); Globulin 2.5 g/dL (1.3-3.2); Glucose 149 mg/dl (74-100); Potassium 4.1 mmoL/L (3.5-5.1); Sodium 134 mmol/L (136-145); Total Protein,Serum 6.6 g/dl (6.3-8.2)
[2024-04-23 19:37] LABS: Lactic Acid 1.2 mmol/L (0.7-2.1)
[2024-04-23 19:39] LABS: C-Reactive Protein 52.2 mg/L (0-4)
[2024-04-23 19:59] VITALS: BP 130/70; PULSE 95; RESP 16; TEMP 38; O2SAT 95
--- NOTE | 2024-04-23 20:00 | PC.NURSE ---
Temperature was 100.4 nurse Dayna notified
[2024-04-23 22:12] LABS: Coronavirus 19, PCR Not Detected (NotDetected); Human Rhinovirus Not Detected (NotDetected); Influenza B, PCR Not Detected (NotDetected); Respiratory Syncytial Virus Not Detected (NotDetected)
[2024-04-23 23:10] LABS: Mycoplasma Pneumo IGM (Rapid) Non-Reactive (Non-Reactiv)
[2024-04-23 23:44] VITALS: BP 123/69; PULSE 87; RESP 18; TEMP 36.8; O2SAT 97
[2024-04-24] VITALS (12 sets, daily range): BP systolic 115–136; BP diastolic 58–65; PULSE 71–78; RESP 16–20; TEMP 36.5–36.9; O2SAT 92–96; BMI 22.3
[2024-04-24] MEDS: IPRATROPIUM/ALBUTEROL 3 ML NEB IH ×5 (00:02→23:16)
[2024-04-24 00:28] LABS: Influenza A, PCR Detected (NotDetected)
--- NOTE | 2024-04-24 02:13 | XR_ITS ---
PROCEDURE INFORMATION: Exam: XR Chest Exam date and time: 04/24/2024 2:15 AM Age: 78 years old Clinical indication: Other: Hypoxia TECHNIQUE: Imaging protocol: Radiologic exam of the chest. Views: 1 view. COMPARISON: CT LUNG SCREENING 11/11/2023 7:13 AM FINDINGS: Lungs: Unremarkable. No consolidation. Pleural spaces: Unremarkable. No pleural effusion. No pneumothorax. Heart/Mediastinum: Unremarkable. No cardiomegaly. Bones/joints: Unremarkable. IMPRESSION: No acute findings.
--- NOTE | 2024-04-24 04:27 | PC.NURSE ---
Pt. is alert and orientated x 4. Pt. is on oxygen at 3 liters per NC. Pt. was a direct admit from Dr. Vazquez's office with suspected Flu A. Pt. tested positive for Flu A and is on Tamiflu. She is in room with patient. Pt. has a strong, harsh, non productive cough. He is coughing a lot. Pt. had a mild temp 100.4. Pt. has allergy to Tylenol but refused Ibuprofen, temp came down on own. Pt. has had restless sleep due to cough. Pt. on continuous pulse ox. Pulse ox 93% -97%. VSS. Personal items and call camp in reach.
[2024-04-24 07:13] LABS: Basophils % 0.4 % (0.1-2.0); Eosinophils % 0.1 % (0.1-12.0); Hematocrit 43.7 % (42.0-52.0); Lymphocytes # 1.3 K/mm3 (0.7-4.5); Lymphocytes % 13.3 % (10-50); Mean Corpuscular HGB Conc 32.7 g/dL (31.8-35.4); Mean Corpuscular Hemoglobin 27.1 pg (27.0-31.2); Mean Corpuscular Volume 82.8 fl (80-94); Monocytes # 1.1 K/mm3 (0.1-1.0); Monocytes % 11.2 % (1.7-9.3); Neutrophils # 7.4 K/mm3 (1.8-7.8); Neutrophils % 74.6 % (37.0-80.0); Platelet Count 119 K/mm3 (142-424); Red Blood Count 5.28 M/mm3 (4.60-6.20); Red Cell Distribution Width 14.6 % (11.5-17.5); White Blood Count 9.9 K/mm3 (4.8-10.8)
[2024-04-24 07:19] LABS: Hemoglobin 14.3 g/dL (14.1-18.0)
[2024-04-24 07:34] LABS: Blood Urea Nitrogen 17 mg/dl (9-20); Calcium 8.8 mg/dl (8.4-10.2); Carbon Dioxide 29 mmol/L (22.0-30.0); Chloride 97 mmol/L (98-107); Creatinine Clearance Estimated 63 mL/min (50-200); Estimated Glomerular Filt Rate 94 ml/min (>60); GFR (African American) 114 ML/MIN (>60); Glucose 99 mg/dl (74-100); Magnesium 1.7 mg/dl (1.6-2.3); Sodium 133 mmol/L (136-145)
--- NOTE | 2024-04-24 08:43 | HMH.PHAINT1 ---
Pharmacy Intervention Comments: MEDICATION RECONCILIATION COMPLETED ON PATIENT USING EXTERNAL FILL HISTORY FROM PHARMACY. -TAMAR HANSEN, GENIAD
--- NOTE | 2024-04-24 08:44 | HMH.PHAINT1 ---
Pharmacy Intervention Comments: MEDICATION RECONCILIATION COMPLETED ON PATIENT USING EXTERNAL FILL HISTORY FROM PHARMACY. -TAMAR HANSEN, GENIAD
--- NOTE | 2024-04-24 09:03 | EXP.ACUTE.PN ---
Subjective *Date: 04/24/24 *Time: 09:03 Interval history: Patient feels a little better this morning, still coughing a lot. Medical Exam Vital signs and Labs for Last 24 Hours: Vital Signs Temp Pulse Pulse Resp BP Pulse Ox O2 Del Method 04/24/24 08:00 98.2 F 78 16 115/65 92 L Nasal Cannula 04/24/24 06:52 Nasal Cannula 04/24/24 06:30 71 16 04/24/24 06:28 71 04/24/24 06:28 74 04/24/24 06:28 96 Nasal Cannula 04/24/24 05:00 Nasal Cannula 04/24/24 04:00 98.5 F 77 16 134/65 95 Nasal Cannula 04/24/24 03:00 Nasal Cannula 04/24/24 01:00 Nasal Cannula 04/24/24 00:03 75 04/24/24 00:03 75 04/23/24 23:44 98.3 F 87 18 123/69 97 Nasal Cannula 04/23/24 23:00 Nasal Cannula 04/23/24 21:00 Nasal Cannula 04/23/24 20:00 Nasal Cannula 04/23/24 19:59 100.4 F H 95 H 16 130/70 95 Nasal Cannula 04/23/24 18:24 94 L Nasal Cannula 04/23/24 18:22 80 18 04/23/24 18:22 82 04/23/24 18:22 80 04/23/24 18:17 Nasal Cannula 04/23/24 17:00 Nasal Cannula 04/23/24 16:26 98.2 F 103 H 18 142/61 H 95 Nasal Cannula 04/23/24 16:16 95 Nasal Cannula O2 Flow Rate 04/24/24 08:00 3 04/24/24 06:52 3 04/24/24 06:30 04/24/24 06:28 04/24/24 06:28 04/24/24 06:28 2 04/24/24 05:00 3 04/24/24 04:00 04/24/24 03:00 3 04/24/24 01:00 3 04/24/24 00:03 04/24/24 00:03 04/23/24 23:44 2 04/23/24 23:00 3 04/23/24 21:00 3 04/23/24 20:00 3 04/23/24 19:59 2 04/23/24 18:24 3 04/23/24 18:22 04/23/24 18:22 04/23/24 18:22 04/23/24 18:17 3 04/23/24 17:00 2 04/23/24 16:26 2 04/23/24 16:16 2 Intake and Output 04/23/24 04/24/24 04/24/24 23:59 07:59 15:59 Intake Total 350 / 965 615 / 915 300 / 915 Output Total 100 / 100 0 / 0 Balance 250 / 865 615 / 915 300 / 915 Intake: Intake, Oral Amount 350 / 590 240 / 540 300 / 540 Intake, Total IV Amount 375 / 375 0.9 % Sodium Chloride 1000ML 1, 375 / 375 000 ml @ 50 mls/hr IV .Q20H [facility] Rx#:[id number] Output: Output, Urine Amount 100 / 100 0 / 0 Other: Number of Unmeasured Voids 1 Weight 157 lb 5 oz 156 lb Patient Weight 04/24/24 23:59 Weight 156 lb Laboratory Results - last 24 hr 04/23/24 16:44: WBC 12.3 H, RBC 5.89, Hgb 16.0, Hct 48.7, MCV 82.7, MCH 27.2, MCHC 32.9, RDW 14.6, Plt Count 157, MPV 10.1, Neut % (Auto) 77.0, Lymph % (Auto) 7.8 L, [place] % (Auto) 8.9, Eos % (Auto) 5.2, Baso % (Auto) 0.6, Neut # (Auto) 9.4 H, Lymph # (Auto) 1.0, [place] # (Auto) 1.1 H, Eos # (Auto) 0.6 H, Baso # (Auto) 0.1, Sodium 134 L, Potassium 4.5, Chloride 99, Carbon Dioxide 27, Anion Gap 12.5, BUN 18, Creatinine 0.90, Estimated Creat Clear 63, Estimated GFR 82, Est GFR ( Amer) 99, Glucose 136 H, Calcium 9.2, Magnesium 1.6 04/23/24 19:02: Sodium 134 L, Potassium 4.1, Chloride 97 L, Carbon Dioxide 25, Anion Gap 16.1 H, BUN 19, Creatinine 0.90, Estimated Creat Clear 63, Estimated GFR 82, Est GFR ( Amer) 99, Glucose 149 H, Lactate 1.2, Calcium 9.2, Total Bilirubin 0.7, AST 52, ALT 32, Alkaline Phosphatase 74, C-Reactive Protein 52.2 H, Total Protein 6.6, Albumin 4.1, Globulin 2.5, Albumin/Globulin Ratio 1.6, Mycoplasma pneumon IgM Non-reactive 04/23/24 22:05: SARS-CoV-2 (PCR) Not detected, Influenza Type A (PCR) Detected A, Influenza Type B (PCR) Not detected, RSV (PCR) Not detected, Rhinovirus (PCR) Not detected 04/24/24 06:46: WBC 9.9, RBC 5.28, Hgb 14.3 D, Hct 43.7, MCV 82.8, MCH 27.1, MCHC 32.7, RDW 14.6, Plt Count 119 L, MPV 10.0, Neut % (Auto) 74.6, Lymph % (Auto) 13.3, [place] % (Auto) 11.2 H, Eos % (Auto) 0.1, Baso % (Auto) 0.4, Neut # (Auto) 7.4, Lymph # (Auto) 1.3, [place] # (Auto) 1.1 H, Eos # (Auto) 0.0, Baso # (Auto) 0.0, Sodium 133 L, Potassium 4.0, Chloride 97 L, Carbon Dioxide 29, Anion Gap 11.0, BUN 17, Creatinine 0.80, Estimated Creat Clear 63, Estimated GFR 94, Est GFR ( Amer) 114, Glucose 99 D, Calcium 8.8, Magnesium 1.7 I & O for Labs for Last 24 Hours: Intake & Output 04/21/24 04/22/24 04/23/24 04/24/24 23:59 23:59 23:59 23:59 Intake Total 350 / 965 915 / 915 Output Total 100 / 100 0 / 0 Balance 250 / 865 915 / 915 Weight 157 lb 5 oz 156 lb Constitutional: Present no acute distress Respiratory: Present decreased breath sounds, rhonchi and wheezes Cardiac: Present Reg Rate and Rhythm GI: Present normal bowel sounds; Absent tenderness Extremities: Present normal inspection and full ROM Skin: Present intact; Absent erythema Neuro: Present Grossly Intact and moves all extremities Assessment and Plan *Assessment and plan (1) Influenza A: Status: Acute Category: Medical Code(s): J10.1 - Influenza due to other identified influenza virus with other respiratory manifestations (2) Hypoxia: Status: Acute Category: Medical Code(s): R09.02 - Hypoxemia (3) Bronchitis: Status: Acute Category: Medical Code(s): J40 - Bronchitis, not specified as acute or chronic (4) COPD (chronic obstructive pulmonary disease): Status: Acute Category: Medical Code(s): J44.9 - Chronic obstructive pulmonary disease, unspecified (5) Polymyalgia rheumatica: Status: Acute Category: Medical Code(s): M35.3 - Polymyalgia rheumatica (6) Hepatic cirrhosis: Status: Acute Category: Medical Code(s): K74.60 - Unspecified cirrhosis of liver Plan Plan to increase steroid dose today, add cough medication, saline lock IVF.
[2024-04-24] MEDS: predniSONE 20MG TAB 20 MG PO ×2 (09:45→20:11)
[2024-04-24] MEDS: OSELTAMIVIR 75MG CAPSULE 75 MG PO ×2 (09:45→20:10)
[2024-04-24] MEDS: PATIENT'S OWN HOME MEDICATION (Tiotropium-Olodaterol [Stiolto Respimat] 2.5-2.5 mcg/actuat 2 EACH IH (18:35)
--- NOTE | 2024-04-24 18:37 | PC.NURSE ---
AOX4, HAS SLEPT ON/OFF FOR MOST OF THE DAY. HAS REMAINED AT BEDSIDE. 3LNC FOR O2 SUPPORT.
[2024-04-24] MEDS: ATORVASTATIN 10MG TABLET 10 MG PO (20:11)
[2024-04-24] MEDS: BENZONATATE 100MG CAPSULE 200 MG PO (20:11)
[2024-04-25] VITALS (9 sets, daily range): BP systolic 98–133; BP diastolic 56–72; PULSE 66–77; RESP 16–18; TEMP 36.2–36.8; O2SAT 91–96; BMI 22.2
--- NOTE | 2024-04-25 05:01 | PC.NURSE ---
Pt. is alert and orientated x 4. Pt. on 2 L oxygen per N/C. Pt. states he feels a lot better tonight. Pt. had one dose of the Tessalon Pearls for cough and it has helped. Pt. still has a cough but it is much better. Pt. has been up to bathroom independently. Pt. has slept off and on throughout shift. Pt's at bedside. Pt. in no distress. VSS. Personal items and call camp in reach.
[2024-04-25] MEDS: IPRATROPIUM/ALBUTEROL 3 ML NEB IH ×4 (06:20→23:05)
[2024-04-25] MEDS: PATIENT'S OWN HOME MEDICATION (Tiotropium-Olodaterol [Stiolto Respimat] 2.5-2.5 mcg/actuat 2 EACH IH ×3 (06:21→18:17)
[2024-04-25] MEDS: OSELTAMIVIR 75MG CAPSULE 75 MG PO ×2 (08:54→20:18)
[2024-04-25] MEDS: predniSONE 20MG TAB 20 MG PO ×2 (08:54→20:18)
[2024-04-25] MEDS: BENZONATATE 100MG CAPSULE 200 MG PO (09:02)
--- NOTE | 2024-04-25 09:31 | EXP.ACUTE.PN ---
Subjective *Date: 04/25/24 *Time: 09:31 Interval history: Patient feels better today, less cough, no new complaints. Medical Exam Vital signs and Labs for Last 24 Hours: Vital Signs Temp Pulse Pulse Resp BP Pulse Ox O2 Del Method 04/25/24 08:00 97.6 F 76 18 133/72 96 Nasal Cannula 04/25/24 06:21 71 04/25/24 06:21 76 04/25/24 06:21 93 L Nasal Cannula 04/25/24 05:00 Room Air 04/25/24 04:00 98.1 F 73 16 116/63 95 Room Air 04/25/24 03:00 Nasal Cannula 04/25/24 01:00 Nasal Cannula 04/25/24 00:00 97.7 F 66 16 110/62 93 L Room Air 04/24/24 23:36 73 04/24/24 23:35 76 04/24/24 23:00 Nasal Cannula 04/24/24 21:00 Nasal Cannula 04/24/24 20:00 Nasal Cannula 04/24/24 20:00 97.7 F 72 18 118/65 95 Nasal Cannula 04/24/24 19:06 Nasal Cannula 04/24/24 19:06 77 04/24/24 19:06 73 04/24/24 17:00 Nasal Cannula 04/24/24 16:00 98.2 F 78 20 136/58 L 95 Nasal Cannula 04/24/24 15:00 Nasal Cannula 04/24/24 13:00 Nasal Cannula 04/24/24 12:00 98.4 F 71 18 125/61 94 L Nasal Cannula 04/24/24 11:10 72 04/24/24 11:10 74 04/24/24 11:10 95 Nasal Cannula 04/24/24 11:00 Nasal Cannula O2 Flow Rate FiO2 04/25/24 08:00 2 04/25/24 06:21 04/25/24 06:21 04/25/24 06:21 2 04/25/24 05:00 04/25/24 04:00 04/25/24 03:00 2 04/25/24 01:00 2 04/25/24 00:00 04/24/24 23:36 04/24/24 23:35 04/24/24 23:00 2 04/24/24 21:00 3 04/24/24 20:00 3 04/24/24 20:00 2 04/24/24 19:06 2 28 04/24/24 19:06 04/24/24 19:06 04/24/24 17:00 3 04/24/24 16:00 3 04/24/24 15:00 3 04/24/24 13:00 3 04/24/24 12:00 3 04/24/24 11:10 04/24/24 11:10 04/24/24 11:10 2 04/24/24 11:00 3 Intake and Output 04/24/24 04/25/24 04/25/24 23:59 07:59 15:59 Intake Total 460 / 1885 240 / 720 480 / 720 Output Total 0 / 0 0 / 0 Balance 460 / 1885 240 / 720 480 / 720 Intake: Intake, Oral Amount 460 / 1510 240 / 720 480 / 720 Output: Output, Urine Amount 0 / 0 0 / 0 Other: Number of Unmeasured Voids 1 1 Weight 155 lb 8.931 oz Patient Weight 04/25/24 23:59 Weight 155 lb 8.931 oz I & O for Labs for Last 24 Hours: Intake & Output 04/22/24 04/23/24 04/24/24 04/25/24 23:59 23:59 23:59 23:59 Intake Total 350 / 965 1645 / 1885 720 / 720 Output Total 100 / 100 0 / 0 0 / 0 Balance 250 / 865 1645 / 1885 720 / 720 Weight 157 lb 5 oz 156 lb 155 lb 8.931 oz Microbiology Reports for the Last 24 Hours: Microbiology 04/23/24 17:05 Sputum - Expectorated Sputum Gram Stain - Final 04/23/24 17:05 Sputum - Expectorated Sputum Sputum Culture - Preliminary 04/23/24 19:02 Blood Blood Culture - Preliminary NO GROWTH AFTER 24 HOURS 04/23/24 19:02 Blood Blood Culture - Preliminary NO GROWTH AFTER 24 HOURS Constitutional: Present no acute distress Respiratory: Present decreased breath sounds and normal respiratory effort; Absent wheezes Cardiac: Present Reg Rate and Rhythm GI: Present normal bowel sounds; Absent tenderness Extremities: Present normal inspection and full ROM Skin: Present intact; Absent erythema Neuro: Present Grossly Intact and moves all extremities Assessment and Plan *Assessment and plan (1) Influenza A: Status: Acute Category: Medical Code(s): J10.1 - Influenza due to other identified influenza virus with other respiratory manifestations (2) Hypoxia: Status: Acute Category: Medical Code(s): R09.02 - Hypoxemia (3) Bronchitis: Status: Acute Category: Medical Code(s): J40 - Bronchitis, not specified as acute or chronic (4) COPD (chronic obstructive pulmonary disease): Status: Acute Category: Medical Code(s): J44.9 - Chronic obstructive pulmonary disease, unspecified (5) Polymyalgia rheumatica: Status: Acute Category: Medical Code(s): M35.3 - Polymyalgia rheumatica (6) Hepatic cirrhosis: Status: Acute Category: Medical Code(s): K74.60 - Unspecified cirrhosis of liver Plan Patient has improved, will attempt to wean supplemental oxygen off today.
[2024-04-25] MEDS: ATORVASTATIN 10MG TABLET 10 MG PO (20:18)
[2024-04-26] VITALS: BP 118/66; PULSE 72; RESP 16; TEMP 36.7; O2SAT 95
[2024-04-26 00:08] VITALS: PULSE 75; PULSE 76
[2024-04-26] MEDS: BENZONATATE 100MG CAPSULE 200 MG PO (03:25)
[2024-04-26 04:00] VITALS: BP 119/77; PULSE 72; RESP 16; TEMP 36.5; O2SAT 94; BMI 22.3
--- NOTE | 2024-04-26 06:27 | PC.NURSE ---
Pt. is alert and orientated x 4. Pt. on oxygen 1 liter per N/C. Pt. had a good night. He states that he feels a lot better. Pt. up and ambulatroy to bathroom. Pt. tolerating activitiy weel. Tolerating po and solid foods. No c/o's this shift. Pt. still has a dry cough. Tessalon Pearls given for cough. Pt. slept off and on throughout shift. Pt. states he is ready to go home. VSS. Personal items and call camp in reach. at bedside.
[2024-04-26] MEDS: PATIENT'S OWN HOME MEDICATION (Tiotropium-Olodaterol [Stiolto Respimat] 2.5-2.5 mcg/actuat 2 EACH IH (06:30)
[2024-04-26] MEDS: IPRATROPIUM/ALBUTEROL 3 ML NEB IH (06:30)
[2024-04-26 08:00] VITALS: BP 134/74; PULSE 78; RESP 20; TEMP 36.7; O2SAT 92
[2024-04-26] MEDS: OSELTAMIVIR 75MG CAPSULE 75 MG PO (08:13)
[2024-04-26] MEDS: predniSONE 20MG TAB 20 MG PO (08:13)
--- NOTE | 2024-04-26 08:32 | EXP.ACUTE.PN ---
Subjective *Date: 04/26/24 *Time: 09:07 Interval history: Patient states he slept as usual. Was awake between 1 and 4 and then was able to go back to sleep after having a shower. He ate all his breakfast. He states his breathing is better with much less coughing. He denies chest pain. He has ambulated without problems. Nurse states he has been on room air for the last 5 to 10 minutes with O2 sats at 95%. Medical Exam Vital signs and Labs for Last 24 Hours: Vital Signs Temp Pulse Pulse Resp BP Pulse Ox O2 Del Method 04/26/24 08:19 Nasal Cannula 04/26/24 08:00 98.1 F 78 20 134/74 92 L Nasal Cannula 04/26/24 06:50 Nasal Cannula 04/26/24 05:00 Nasal Cannula 04/26/24 04:00 97.7 F 72 16 119/77 94 L Nasal Cannula 04/26/24 03:00 Nasal Cannula 04/26/24 01:00 Nasal Cannula 04/26/24 00:08 76 04/26/24 00:08 75 04/26/24 00:00 98.0 F 72 16 118/66 95 Room Air 04/25/24 23:00 Nasal Cannula 04/25/24 21:00 Nasal Cannula 04/25/24 20:00 Nasal Cannula 04/25/24 20:00 97.2 F L 75 16 121/65 94 L Room Air 04/25/24 19:00 Nasal Cannula 04/25/24 18:49 Nasal Cannula 04/25/24 18:48 77 04/25/24 18:48 73 04/25/24 17:00 Nasal Cannula 04/25/24 16:00 98.2 F 69 16 120/68 93 L Nasal Cannula 04/25/24 15:00 Nasal Cannula 04/25/24 13:00 Nasal Cannula 04/25/24 11:58 98.1 F 70 16 98/56 L 93 L 04/25/24 11:16 71 04/25/24 11:16 75 04/25/24 11:16 91 L Nasal Cannula 04/25/24 11:00 Nasal Cannula 04/25/24 09:00 Nasal Cannula O2 Flow Rate 04/26/24 08:19 1 04/26/24 08:00 1 04/26/24 06:50 1 04/26/24 05:00 1 04/26/24 04:00 1 04/26/24 03:00 1 04/26/24 01:00 1 04/26/24 00:08 04/26/24 00:08 04/26/24 00:00 04/25/24 23:00 1 04/25/24 21:00 1 04/25/24 20:00 1 04/25/24 20:00 1 04/25/24 19:00 1 04/25/24 18:49 2 04/25/24 18:48 04/25/24 18:48 04/25/24 17:00 1 04/25/24 16:00 04/25/24 15:00 1 04/25/24 13:00 1 04/25/24 11:58 04/25/24 11:16 04/25/24 11:16 04/25/24 11:16 2 04/25/24 11:00 1 04/25/24 09:00 2 Intake and Output 04/25/24 04/26/24 04/26/24 19:59 03:59 11:59 Intake Total 720 / 720 Output Total 0 / 0 Balance 720 / 720 0 / 720 Intake: Intake, Oral Amount 720 / 720 Output: Output, Urine Amount 0 / 0 Other: Number of Unmeasured Voids 1 Weight 155 lb 11.2 oz Patient Weight 04/26/24 11:59 Weight 155 lb 11.2 oz I & O for Labs for Last 24 Hours: Intake & Output 04/23/24 04/24/24 04/25/24 04/26/24 11:59 11:59 11:59 11:59 Intake Total 1265 / 1265 1450 / 1450 720 / 720 Output Total 100 / 100 0 / 0 0 / 0 Balance 1165 / 1165 1450 / 1450 720 / 720 Weight 156 lb 155 lb 8.931 oz 155 lb 11.2 oz Microbiology Reports for the Last 24 Hours: Microbiology 04/23/24 19:02 Blood Blood Culture - Preliminary NO GROWTH AFTER 48 HOURS 04/23/24 19:02 Blood Blood Culture - Preliminary NO GROWTH AFTER 48 HOURS 04/23/24 17:05 Sputum - Expectorated Sputum Gram Stain - Final 04/23/24 17:05 Sputum - Expectorated Sputum Sputum Culture - Preliminary Constitutional: Present no acute distress Comment:: Sitting up in the bed and appears most comfortable Respiratory: Present decreased breath sounds (Posteriorly and sounds clear) Cardiac: Present Reg Rate and Rhythm GI: Present soft and normal bowel sounds; Absent distention or tenderness Extremities: Absent edema or calf tenderness Neuro: Present alert, awake and oriented x 3 Assessment and Plan *Assessment and plan (1) Influenza A: Status: Acute Category: Medical Code(s): J10.1 - Influenza due to other identified influenza virus with other respiratory manifestations (2) Hypoxia: Status: Acute Category: Medical Code(s): R09.02 - Hypoxemia (3) Bronchitis: Status: Acute Category: Medical Code(s): J40 - Bronchitis, not specified as acute or chronic (4) COPD (chronic obstructive pulmonary disease): Status: Acute Category: Medical Code(s): J44.9 - Chronic obstructive pulmonary disease, unspecified (5) Polymyalgia rheumatica: Status: Acute Category: Medical Code(s): M35.3 - Polymyalgia rheumatica (6) Hepatic cirrhosis: Status: Acute Category: Medical Code(s): K74.60 - Unspecified cirrhosis of liver Plan Patient has continued to improve. Possibly home today. Dr. Darling entry - Saw patient, agree with above note.
--- NOTE | 2024-04-27 10:19 | SW/DCPLANNER ---
Spoke with patients on the phone. Patient's stated that he is doing better but its going to be a slow process. Patient's stated that they are aware of his upcoming appointment. Patient's stated that they were able to pharmacy picking technician his medicine from [facility]. Patients stated that they have no concerns or questions at this time. Ruth Bryant
--- NOTE | 2024-04-29 08:21 | EXP.DC.SUM ---
General Admission date:: 04/23/24 Discharge date: 04/26/24 HPI HPI HPI: Mr. Bey is a 78-year-old male with a history of polymyalgia rheumatica, COPD, hepatic cirrhosis, thrombocytopenia, history of malignant melanoma of the eye, and hypertriglyceridemia who presented to the office to [facility] today with sore throat, cough, shortness of breath, headache, and bodyaches. He has been around his son who had the flu and he began having symptoms last night. He and his are both ill. His rapid flu and COVID tests in the office were negative. His oxygen was 82 to 85% on room air. Oxygen was placed on the patient and he was admitted for further evaluation and treatment. Hospital Course Hospital Course Hospital Course: Patient was admitted and was placed on oxygen and started on neb treatments and steroids. A mini respiratory panel was ordered as was a chest x-ray. He was positive for the flu and was started on Tamiflu. His chest x-ray did not show pneumonia. He continued with a cough and cough medication was added. His steroid dose was also increased. He did begin improving and he was able to ambulate without problems. His oxygen was weaned and he had a room air sat of 95%. His blood culture showed returned showing no growth. He was stable to be discharged home on continued Tamiflu. Exam Data for Last 24 hours Vital signs and Labs for Last 24 Hours: Temp Pulse Resp BP Pulse Ox O2 Del Method O2 Flow Rate 98.1 F 78 20 134/74 92 L Room Air 1 04/26/24 08:00 04/26/24 08:00 04/26/24 08:00 04/26/24 08:00 04/26/24 08:00 04/26/24 08:36 04/26/24 08:19 FiO2 28 04/24/24 19:06 I & O for Last 24 hours: Intake & Output 04/26/24 04/27/24 04/28/24 04/29/24 11:59 11:59 11:59 11:59 Intake Total 960 / 960 Output Total 0 / 0 Balance 960 / 960 Weight 155 lb 11.2 oz Microbiology Reports for the Last 24 Hours: Microbiology 04/23/24 19:02 Blood Blood Culture - Final NO GROWTH AFTER 5 DAYS 04/23/24 19:02 Blood Blood Culture - Final NO GROWTH AFTER 5 DAYS Narrative: Constitutional Constitutional: mild distress *Routine HEENT Exam Head: Present normocephalic and atraumatic Eye: Present EOMI and PERRL ENT: Present mucous membranes dry *Routine Neck Exam Neck: Present supple and full ROM *Routine Respiratory Exam Respiratory: Present rhonchi and wheezes *Routine Cardiovascular Exam Cardiovascular: Present RRR *Routine Abdominal Exam Abdominal: Present soft and normoactive bowel sounds; Absent tenderness *Routine Rectal Exam Rectal:: deferred *Routine Genitalia Exam Genitalia:: deferred *Routine Extremities Exam Extremities: Absent cyanosis, clubbing or edema *Routine Skin Exam Skin: Present intact; Absent erythema *Routine Neurological Exam Neurological: Present alert and oriented X3 DS: Diagnosis Discharge Diagnosis (1) Influenza A: Status: Acute Code(s): J10.1 - Influenza due to other identified influenza virus with other respiratory manifestations (2) Hypoxia: Status: Acute Code(s): R09.02 - Hypoxemia (3) Bronchitis: Status: Acute Code(s): J40 - Bronchitis, not specified as acute or chronic (4) COPD (chronic obstructive pulmonary disease): Status: Acute Code(s): J44.9 - Chronic obstructive pulmonary disease, unspecified (5) Polymyalgia rheumatica: Status: Acute Code(s): M35.3 - Polymyalgia rheumatica (6) Hepatic cirrhosis: Status: Acute Code(s): K74.60 - Unspecified cirrhosis of liver Meds Home Medications and Allergies Home Medications ?Medication ?Instructions ?Recorded ?Confirmed ?Type atorvastatin 10 mg tablet (Lipitor) 10 mg PO DAILY 01/14/24 04/23/24 History furosemide 20 mg tablet (Lasix) 20 mg PO DAILY 01/14/24 04/23/24 History icosapent ethyl 1 gram capsule 2 g PO BID 01/14/24 04/24/24 History (Vascepa) multivitamin 1 tab PO DAILY 04/23/24 04/23/24 History nadolol 20 mg tablet 40 mg PO DAILY 04/23/24 04/24/24 History polyethylene glycol 3350 17 gram 17 g PO DAILY 04/23/24 04/23/24 History oral powder packet (Miralax) prednisone 5 mg tablet 5 mg PO DAILY 04/23/24 04/23/24 History tiotropium 2.5 mcg-olodaterol 2.5 2 puff inhalation DAILY 04/23/24 04/25/24 History mcg/actuation mist for inhalation (Stiolto Respimat) benzonatate 100 mg capsule 200 mg (2 x 100 mg) PO Q6HP PRN 04/26/24 Rx Cough #20 caps oseltamivir 75 mg capsule (Tamiflu) 75 mg PO BID #6 caps 04/26/24 Rx New Prescriptions to Start Prescriptions: benzonatate Mir Darling oseltamivir [Tamiflu] Mir Darling Allergies Allergy/AdvReac Type Severity Reaction Status Date / Time acetaminophen Allergy Palpitation Verified 04/24/24 08:34 s morphine Allergy Flushing Verified 01/19/24 09:52 Discharge Plan Disposition Patient Disposition: Home, Self-Care Condition: Fair Discharge Order Discharge Orders: Discharge Order (Routine); Ordered 04/26/24 Ordered By: Mir Darling Follow up Plan Follow up with: Kathy Kennedy PA [[employer] [employer]] - 05/06/24 10:30 am Prescriptions/Medication Reconciliation: New benzonatate 100 mg Capsule 200 mg PO Q6HP PRN (Reason: Cough) Qty: 20 0RF oseltamivir [Tamiflu] 75 mg Capsule 75 mg PO BID Qty: 6 0RF Continued prednisone 5 mg tablet 5 mg PO DAILY Patient Comments: TAKE 1 TABLET BY MOUTH ONCE DAILY nadolol 20 mg tablet 40 mg PO DAILY Patient Comments: TAKE 2 TABLETS BY MOUTH ONCE DAILY multivitamin Tablet 1 tab PO DAILY polyethylene glycol 3350 [Miralax] 17 gram Powder In Packet 17 g PO DAILY Stiolto Respimat 2.5-2.5 mcg/actuation mist 2 puff INHALATION DAILY atorvastatin [Lipitor] 10 mg tablet 10 mg PO DAILY Patient Comments: TAKE 1 TABLET BY MOUTH EVERY DAY furosemide [Lasix] 20 mg tablet 20 mg PO DAILY Patient Comments: TAKE 1 TABLET BY MOUTH EVERY DAY icosapent ethyl [Vascepa] 1 gram capsule 2 g PO BID Problem Reconciliation Problems Reviewed?: Yes Patient Discharge Instructions ACTIVITY: Continue current activity DIET: continue same diet Patient Instructions: DI for Influenza -- Adult, DI for Hypoxia, Respiratory Failure Print Language: Czech Providers Primary Care Provider: Mir Darlign Admit Provider: Mir Darling Attending Provider: Mir Darling
== END 2024-04-26 09:26 | disposition home or self-care (01) | DRG 195 ==
PROVIDERS: Physician Assistant; Admitting Provider Family Medicine; PCP Family Medicine; Visit Provider Family Medicine
DX: J10.1 Influenza due to other identified influenza virus with other respiratory manifestations (principal); J44.9 Chronic obstructive pulmonary disease, unspecified; M35.3 Polymyalgia rheumatica; K74.60 Unspecified cirrhosis of liver; E78.5 Hyperlipidemia, unspecified; E78.1 Pure hyperglyceridemia; F17.210 Nicotine dependence, cigarettes, uncomplicated; Z79.899 Other long term (current) drug therapy; Z79.02 Long term (current) use of antithrombotics/antiplatelets; Z85.840 Personal history of malignant neoplasm of eye
CPT/HCPCS: 36415; 71045; 80048; 80053; 83605; 83735; 85025; 86140; 86738; 87040; 87070; 87205; 87631; 93005; 94640; 94760; 94761; J7030; J7620

== ENCOUNTER 2024-07-08 10:31 | Outpatient (CLI) | payer MEDICARE, SELFPAY ==
--- OUTSIDE RECORDS SUMMARY | 2024-07-08 10:33 | XMS_ITS | Data Portability ---
Author Organization 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 Stage 3 of 4. Transjugular liver biopsy performed at [facility] on May 18, 2021 with evidence of chronic cholestasis and obstructive biliary features, not overly suggestive of PBC or AH. Prior lab workup with normal viral hepatitis labs, normal autoimmune workup. 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 ANTOINE fibrosure showed moderate steatosis, F2 fibrosis score, but ANTOINE grade of 0. Liver biopsy with no iron or steatosis. MRCP showed moderately distended GB with no biliary obstruction or bile duct abnormality otherwise. -He was previously instructed to discontinue Niacin due to potential for hepatotoxicity. He had been prescribed Niacin for over 30 years. Liver biopsy potentially consistent with medication related injury. -Hepatic function labs have remained unremarkable. Will continue to monitor CMP, CBC, INR, and AFP now and every 6 months. Plan for US liver now and q6 months for HCC screening. 2) Gastric varices: - Prophylaxis: Continue Nadolol 20 mg p.o. daily for pre-primary prophylaxis of esophageal varices. HR at goal currently. He will continue to monitor HR and blood pressure at home. -No evidence of esophageal varices on EGD 08/2021. 3) Ascites/LE edema: History ascites with prior paracentesis of 850 ml x1 previously. He is using low dose lasix as needed for mild LE edema. No concerns for symptomatic ascites at this time. -Ascites/BLE edema: 2g/day sodium restriction counseled. Spironolactone previously discontinued due to breast tenderness. Repeat CMP. 4) Multi-joint pain: following with rheumatology. He is currently prescribed Prednisone for possible polymyalgia rheumatica. f/u 6 months. He states he will be due for PSA with urology at that time and requests to have that lab done here at his next OV, which we will schedule 2 days before he sees urology. [email or web address] Not available 01/02/2024 10:40:41 06/29/2024 06/29/2024 78-year-old male with: 1) Advanced hepatic fibrosis, idiopathic: initially identified incidentally on outside imaging. Stage 3 of 4. Transjugular liver biopsy performed at [facility] on May 18, 2021 with evidence of chronic cholestasis and obstructive biliary features, not overly suggestive of PBC or AH. Prior lab workup with normal viral hepatitis labs, normal autoimmune workup. 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 ANTOINE fibrosure showed moderate steatosis, F2 fibrosis score, but ANTOINE grade of 0. Liver biopsy with no iron or steatosis. MRCP showed moderately distended GB with no biliary obstruction or bile duct abnormality otherwise. -He was previously instructed to discontinue Niacin due to potential for hepatotoxicity. He had been prescribed Niacin for over 30 years. Liver biopsy potentially consistent with medication related injury. -Hepatic function labs have remained unremarkable. Will continue to monitor CMP, CBC, INR, and AFP now and every 6 months. Plan for US liver now and q6 months for HCC screening. 2) Gastric varices: - Prophylaxis: Continue Nadolol 20 mg p.o. daily for pre-primary prophylaxis of esophageal varices. HR at goal currently. He will continue to monitor HR and blood pressure at home. -No evidence of esophageal varices on EGD 08/2021. 3) Ascites/LE edema: History ascites with prior paracentesis of 850 ml x1 previously. He is using low dose lasix as needed (sparingly) for mild LE edema. No concerns for symptomatic ascites at this time. -Ascites/BLE edema: 2g/day sodium restriction counseled. Spironolactone previously discontinued due to breast tenderness. Repeat CMP. 4) Multi-joint pain: following with rheumatology. He is currently prescribed low dose Prednisone for possible polymyalgia rheumatica. He reports plan to switch to biologic therapy. 5) PSA above reference range: He follows with urology and see's them . He has an order for PSA draw. We will obtain that with his labs today. f/u 6 months. [email or web address] Not available 06/29/2024 11:57:30 Plan of Treatment Reminders Order Date Submit Date Provider Last Modified By Organization Details Last Modified Time Details Appointments Establish ed Visit 15 min 2024 11:00A M Nitesh Padron PA-C Not available Not available Not available OV EST 15 2024 09:30A M Bonita Live NP Not available Not available Not available Lab PSA, serum or plasma 2024 025 [facility] (Registration ), [address] , [place], [address], 07/01/2024 11:55:17 PSA, total, serum or plasma 2024 025 [facility], [address], [address], [place], [address], 06/30/2024 16:26:30 CMP, serum or plasma 2024 025 [facility], [address], [address], [place], [address], 06/30/2024 16:26:27 CBC 2024 025 [facility], [address], [address], [place], [address], 06/30/2024 16:26:27 PT/INR 2024 025 [facility], [address], [address], [place], [address], 06/30/2024 16:26:28 afp (alpha-fe toprotein ) tumor marker, serum or plasma 2024 025 [place], [address], [address], [place], [address], 06/30/2024 16:26:29 CMP, serum or plasma 2023 024 [facility], [address], [address], [place], [address], 01/05/2024 16:12:21 CBC 2023 024 [place], [address], [address], [place], [address], 01/05/2024 16:12:22 PT/INR 2023 024 [facility], [address], [address], [place], [address], 01/05/2024 16:12:24 afp (alpha-fe toprotein ) tumor marker, serum or plasma 2023 024 [place], [address], [address], [place], [address], 01/05/2024 16:12:25 PSA, serum or plasma 2023 024 [facility] (Registration ), [address] [place], [address], 01/01/2024 15:27:43 PSA, serum or plasma 2023 024 [facility] (Registration ), [address] [place], [address], 01/01/2024 14:16:25 Referral None recorded. Procedures None recorded. Surgeries None recorded. Imaging US, liver 2024 025 [id number], [address] [place], [address], 06/30/2024 15:33:15 US, liver 2023 024 [email or web address], [address] [facility], [place], [address], 01/16/2024 13:22:57 Medication Orders nadolol 20 mg tablet [address] [facility][id number], [address], [phone], 06/29/2024 10:53:52 Lasix 20 mg tablet [address] [facility] #[id number], [address], [id number], 01/02/2024 10:02:42 nadolol 20 mg tablet [address] [facility] #[id number], [address], [phone], 01/02/2024 10:02:42 Patient TargetsNo targets recorded. Patient InstructionsNo instructions recorded. Reason for Referral None Reported. Results Created Date Observation Date Name Description Value Unit Range Abnormal Flag Note LastModifiedBy Organization Detail LastModifiedTime 01/01/2001/01/2024 PROST ATE SPECI FIC AG (PSA) prostate specific Ag (PSA) 3.8 NG/mL 0-4.0 Not Available [facility] ([facility]) [address] [facility], [place], [address], 01/01/2024 14:16:25 01/02/2001/03/2024 COMP. METAB OLIC PANEL (14) glucose 118 mg/dL 70-99 above high normal Not Available [facility] ([facility]) [address], [place], [address], 01/05/2024 16:12:21 01/02/2007 0101/03/2024 COMP. METAB OLIC PANEL (14) BUN 20 mg/dL 8-27 normal Not Available [facility] ([facility]) [address] [place], [address], 01/05/2024 16:12:21 01/02/20 24 01/03/2024 COMP. METAB OLIC PANEL (14) creatinine 1.07 mg/dL 0.76-1 .27 normal Not Available [facility] ([facility]) [address] [facility] [address], [place], [address], 01/05/2024 16:12:21 01/02/2001/03/2024 COMP. METAB OLIC PANEL (14) eGFR 72 mL/mi n/1.7 3 >59 normal Not Available [facility] ([facility]) [address] [facility] [address], [place], [address], 01/05/2024 16:12:21 01/02/20 24 01/03/2024 COMP. METAB OLIC PANEL (14) BUN/creatini ne ratio 19 10-24 normal Not Available [facility] ([facility]) [address] [facility], [place], [address], 01/05/2024 16:12:21 01/02/20 24 01/03/2024 COMP. METAB OLIC PANEL (14) sodium 138 mmol/ L 134-14 4 normal Not Available [facility] ([facility]) [address] [place], [address], 01/05/2024 16:12:21 01/02/20 24 01/03/2024 COMP. METAB OLIC PANEL (14) potassium 5.0 mmol/ L 3.5-5. 2 normal Not Available [facility] ([facility]) [address] [place], [address], 01/05/2024 16:12:21 01/02/20 24 01/03/2024 COMP. METAB OLIC PANEL (14) chloride 98 mmol/ L 96-106 normal Not Available [facility] ([facility]) [address] [facility] [place], [address], 01/05/2024 16:12:21 01/02/20 24 01/03/2024 COMP. METAB OLIC PANEL (14) carbon dioxide, total 26 mmol/ L 20-29 normal Not Available [facility] ([facility]) [address] [facility] [place], [address], 01/05/2024 16:12:21 01/02/20 24 01/03/2024 COMP. METAB OLIC PANEL (14) calcium 9.7 mg/dL 8.6-10 .2 normal Not Available [facility] ([facility]) [address] [facility] [place], [address], 01/05/2024 16:12:21 01/02/20 24 01/03/2024 COMP. METAB OLIC PANEL (14) protein, total 7.1 g/dL 6.0-8. 5 normal Not Available [facility] ([facility]) [address] [facility] [place], [address], 01/05/2024 16:12:21 01/02/20 24 01/03/2024 COMP. METAB OLIC PANEL (14) albumin 4.3 g/dL 3.8-4. 8 normal Not Available [facility] ([facility]) [address] [facility] [place], [address], 01/05/2024 16:12:21 01/02/20 24 01/03/2024 COMP. METAB OLIC PANEL (14) globulin, total 2.8 g/dL 1.5-4. 5 Not Available [facility] ([facility]) [address] [facility] [place], [address], 01/05/2024 16:12:21 01/02/20 24 01/03/2024 COMP. METAB OLIC PANEL (14) bilirubin, total 0.4 mg/dL 0.0-1. 2 normal Not Available [facility] ([facility]) [address] [facility] [address], [place], [address], 01/05/2024 16:12:21 01/02/20 24 01/03/2024 COMP. METAB OLIC PANEL (14) alkaline phosphatase 85 IU/L 44-121 normal Not Available [facility]) [address], [place], [address], 01/05/2024 16:12:21 01/02/20 24 01/03/2024 COMP. METAB OLIC PANEL (14) AST (SGOT) 23 IU/L 0-40 normal Not Available [facility] ([facility]) [address], [place], [address], 01/05/2024 16:12:21 01/02/20 24 01/03/2024 COMP. METAB OLIC PANEL (14) ALT (SGPT) 16 IU/L 0-44 normal Not Available [facility] ([facility]) [address], [place], [address], 01/05/2024 16:12:21 01/02/20 24 01/03/2024 CBC, PLATE LET, NO DIFFE RENTI AL WBC 10.7 x10e3 /uL 3.4-10 .8 normal Not Available [facility] ([facility]) [address], [place], [address], 01/05/2024 16:12:22 01/02/2001/03/2024 CBC, PLATE LET, NO DIFFE RENTI AL RBC 6.36 x10e6 /uL 4.14-5 .80 above high normal Not Available [facility] ([facility]) [address] [facility], [place], [address], 01/05/2024 16:12:22 01/02/20 24 01/03/2024 CBC, PLATE LET, NO DIFFE RENTI AL hemoglobin 16.6 g/dL 13.0-1 7.7 normal Not Available [facility] ([facility]) [address] [facility] [address], [place], [address], 01/05/2024 16:12:22 01/02/2001/03/2024 CBC, PLATE LET, NO DIFFE RENTI AL hematocrit 53.2 % 37.5-5 1.0 above high normal Not Available [facility] ([facility]) [address] [facility] [address], [place], [address], 01/05/2024 16:12:22 01/02/2001/03/2024 CBC, PLATE LET, NO DIFFE RENTI AL MCV 84 fL 79-97 normal Not Available [facility] ([facility]) [address] [facility] [address], [place], [address], 01/05/2024 16:12:22 01/02/2001/03/2024 CBC, PLATE LET, NO DIFFE RENTI AL MCH 26.1 pg 26.6-3 3.0 below low normal Not Available [facility] ([facility]) [address] [facility] [address], [place], [address], 01/05/2024 16:12:22 01/02/2001/03/2024 CBC, PLATE LET, NO DIFFE RENTI AL MCHC 31.2 g/dL 31.5-3 5.7 below low normal Not Available [facility] ([facility]) [address] [facility] [address], [place], [address], 01/05/2024 16:12:22 01/02/2001/03/2024 CBC, PLATE LET, NO DIFFE RENTI AL RDW 15.1 % 11.6-1 5.4 Not Available [facility] ([facility]) [address] [facility] [address], [place], [address], 01/05/2024 16:12:22 01/02/20 24 01/03/2024 CBC, PLATE LET, NO DIFFE RENTI AL platelets 239 x10e3 /uL 150-45 0 normal Not Available [facility] ([facility]) [address], [place], [address], 01/05/2024 16:12:22 01/02/2001/03/2024 CBC, PLATE LET, NO DIFFE RENTI AL NRBC HOOP COILER Not Available [facility] ([facility]) [address], [place], [address], 01/05/2024 16:12:22 01/02/20 24 01/03/2024 PROTH ROMBI N TIME (PT), SERIA L INR 1.0 0.9-1. 2 Refer ence inter drew is for non-a ntico agula luann patie nts. Sugge sted INR thera peuti c range for Vitam in K antag onist thera py: Stand conor Dose (mode rate inten sity thera peuti c range ): 2.0 - 3.0 Highe r inten sity thera peuti c range 2.5 - 3.5 Not Available [facility] ([facility]) [address], [place], [address], 01/05/2024 16:12:24 01/02/2001/03/2024 PROTH ROMBI N TIME (PT), SERIA L prothrombin time 11.1 sec 9.1-12 .0 normal Not Available [facility] ([facility]) [address] [facility] [address], [place], [address], 01/05/2024 16:12:24 01/02/2001/05/2024 PROTH ROMBI N TIME (PT), SERIA L pdf . Not Available [facility] ([facility]) [address], [place], [address], 01/05/2024 16:12:24 01/02/20 24 01/03/2024 AFP, SERUM , TUMOR MARKE R AFP, serum, tumor marker 5.9 NG/mL 0.0-8. 4 normal Pradeep Diagn ostic s Elect pradeep milum inesc ence Immun oassa y (ECLI A) Value s obtai pat with diffe rent assay metho ds or kits canno t be used inter de jesus eably . Resul ts canno t be inter prete d as absol inupiat evide nce of the prese nce or absen ce of brunilda padgett se. This test is not inter preta ble in pregn ant femal es. Not Available [facility] ([facility]) [address] [place], [address], 01/05/2024 16:12:25 06/30/19 25 06/30/2024 COMP. METAB OLIC PANEL (14) glucose 106 mg/dL 70-99 above high normal Not Available [facility] ([facility]) [address] [place], [address], 06/30/2024 16:26:27 06/30/19 25 06/30/2024 COMP. METAB OLIC PANEL (14) BUN 19 mg/dL 8-27 normal Not Available [facility] ([facility]) [address] [place], [address], 06/30/2024 16:26:27 06/30/19 25 06/30/2024 COMP. METAB OLIC PANEL (14) creatinine 1.26 mg/dL 0.76-1 .27 normal Not Available [facility] ([facility]) [address] [place], [address], 06/30/2024 16:26:27 06/30/19 25 06/30/2024 COMP. METAB OLIC PANEL (14) eGFR 59 mL/mi n/1.7 3 >59 below low normal Not Available [facility] ([facility]) [address] [place], [address], 06/30/2024 16:26:27 06/30/19 25 06/30/2024 COMP. METAB OLIC PANEL (14) BUN/creatini ne ratio 15 10-24 normal Not Available [facility] ([facility]) [address] [facility] [place], [address], 06/30/2024 16:26:27 06/30/19 25 06/30/2024 COMP. METAB OLIC PANEL (14) sodium 140 mmol/ L 134-14 4 normal Not Available [facility] ([facility]) [address] [place], [address], 06/30/2024 16:26:27 06/30/19 25 06/30/2024 COMP. METAB OLIC PANEL (14) potassium 4.9 mmol/ L 3.5-5. 2 normal Not Available [facility] ([facility]) [address] [facility] [place], [address], 06/30/2024 16:26:27 06/30/19 25 06/30/2024 COMP. METAB OLIC PANEL (14) chloride 102 mmol/ L 96-106 normal Not Available [facility] ([facility]) [address] [facility], [address], 06/30/2024 16:26:27 06/30/19 25 06/30/2024 COMP. METAB OLIC PANEL (14) carbon dioxide, total 22 mmol/ L 20-29 normal Not Available [facility] ([facility]) [address] [facility], [address], 06/30/2024 16:26:27 06/30/19 25 06/30/2024 COMP. METAB OLIC PANEL (14) calcium 9.7 mg/dL 8.6-10 .2 normal Not Available [facility] ([facility]) [address] [facility], [address], 06/30/2024 16:26:27 06/30/19 25 06/30/2024 COMP. METAB OLIC PANEL (14) protein, total 7.2 g/dL 6.0-8. 5 normal Not Available [facility] ([facility]) [address] [facility], [address], 06/30/2024 16:26:27 06/30/19 25 06/30/2024 COMP. METAB OLIC PANEL (14) albumin 4.5 g/dL 3.8-4. 8 normal Not Available [facility] ([facility]) [address] [facility] [address], [place], [address], 06/30/2024 16:26:27 06/30/19 25 06/30/2024 COMP. METAB OLIC PANEL (14) globulin, total 2.7 g/dL 1.5-4. 5 Not Available [facility] ([facility]) [address] [facility], [address], 06/30/2024 16:26:27 06/30/19 25 06/30/2024 COMP. METAB OLIC PANEL (14) bilirubin, total 0.4 mg/dL 0.0-1. 2 normal Not Available [facility] ([facility]) [address] [facility], [address], 06/30/2024 16:26:27 06/30/19 25 06/30/2024 COMP. METAB OLIC PANEL (14) alkaline phosphatase 100 IU/L 44-121 normal Not Available [facility] ([facility]) [address] [facility] [address], [place], [address], 06/30/2024 16:26:27 06/30/19 25 06/30/2024 COMP. METAB OLIC PANEL (14) AST (SGOT) 22 IU/L 0-40 normal Not Available [facility] ([facility]) [address] [facility], [address], 06/30/2024 16:26:27 06/30/19 25 06/30/2024 COMP. METAB OLIC PANEL (14) ALT (SGPT) 18 IU/L 0-44 normal Not Available [facility] ([facility]) [address] [facility], [address], 06/30/2024 16:26:27 06/30/19 25 06/30/2024 CBC, PLATE LET, NO DIFFE RENTI AL WBC 8.8 x10e3 /uL 3.4-10 .8 normal Not Available [facility] ([facility]) [address] [facility] [address], [place], [address], 06/30/2024 16:26:27 06/30/19 25 06/30/2024 CBC, PLATE LET, NO DIFFE RENTI AL RBC 5.62 x10e6 /uL 4.14-5 .80 normal Not Available [facility] ([facility]) [address] [facility] [address], [place], [address], 06/30/2024 16:26:27 06/30/19 25 06/30/2024 CBC, PLATE LET, NO DIFFE RENTI AL hemoglobin 15.9 g/dL 13.0-1 7.7 normal Not Available [facility] ([facility]) [address] [place], [address], 06/30/2024 16:26:27 06/30/19 25 06/30/2024 CBC, PLATE LET, NO DIFFE RENTI AL hematocrit 47.5 % 37.5-5 1.0 normal Not Available [facility] ([facility]) [address] [facility] [address], [place], [address], 06/30/2024 16:26:27 06/30/19 25 06/30/2024 CBC, PLATE LET, NO DIFFE RENTI AL MCV 85 fL 79-97 normal Not Available [facility] ([facility]) [address] [place], [address], 06/30/2024 16:26:27 06/30/19 25 06/30/2024 CBC, PLATE LET, NO DIFFE RENTI AL MCH 28.3 pg 26.6-3 3.0 normal Not Available [facility] ([facility]) [address] [place], [address], 06/30/2024 16:26:27 06/30/19 25 06/30/2024 CBC, PLATE LET, NO DIFFE RENTI AL MCHC 33.5 g/dL 31.5-3 5.7 normal Not Available [facility] ([facility]) [address] [facility] [address], [place], [address], 06/30/2024 16:26:27 06/30/19 25 06/30/2024 CBC, PLATE LET, NO DIFFE RENTI AL RDW 13.4 % 11.6-1 5.4 Not Available [facility] ([facility]) [address] [facility] [address], [place], [address], 06/30/2024 16:26:27 06/30/19 25 06/30/2024 CBC, PLATE LET, NO DIFFE RENTI AL platelets 255 x10e3 /uL 150-45 0 normal Not Available [facility] ([facility]) [address] [facility] [address], [place], [address], 06/30/2024 16:26:27 06/30/19 25 06/30/2024 CBC, PLATE LET, NO DIFFE RENTI AL NRBC HOOP COILER Not Available [facility] ([facility]) [address] [facility] [address], [place], [address], 06/30/2024 16:26:27 06/30/19 25 06/30/2024 PROTH ROMBI N TIME (PT), SERIA L INR 1.0 0.9-1. 2 Refer ence inter drew is for non-a ntico agula luann patie nts. Sugge sted INR thera peuti c range for Vitam in K antag onist thera py: Stand conor Dose (mode rate inten sity thera peuti c range ): 2.0 - 3.0 Highe r inten sity thera peuti c range 2.5 - 3.5 Not Available [facility] ([facility]) [address] [facility] [address], [place], [address], 06/30/2024 16:26:28 06/30/19 25 06/30/2024 PROTH ROMBI N TIME (PT), SERIA L prothrombin time 11.2 sec 9.1-12 .0 normal Not Available [facility] ([facility]) [address] [place], [address], 06/30/2024 16:26:28 06/30/19 25 06/30/2024 PROTH ROMBI N TIME (PT), SERIA L pdf . Not Available [facility] ([facility]) [address] [facility] [address], [place], [address], 06/30/2024 16:26:28 06/30/19 25 06/30/2024 AFP, SERUM , TUMOR MARKE R AFP, serum, tumor marker 5.2 NG/mL 0.0-8. 4 normal Pradeep Diagn ostic s Elect pradeep milum inesc ence Immun oassa y (ECLI A) Value s obtai pat with diffe rent assay metho ds or kits canno t be used inter de jesus eably . Resul ts canno t be inter prete d as absol inupiat evide nce of the prese nce or absen ce of brunilda walls se. This test is not inter preta ble in pregn ant femal es. Not Available [facility] ([facility]) [address] [facility] [address], [place], [address], 06/30/2024 16:26:29 06/30/19 25 06/30/2024 PROST ATE-S PECIF IC AG prostate specific Ag 3.7 NG/mL 0.0-4. 0 normal Pradeep ECLIA metho dolog y. Accor ding to the Ameri can [employer] g[employer] iatio n, Serum PSA shoul d decre ase and remai n at undet ectab le level s after radic al prost atect amado. The AUA defin es bioch emica l recur rence as an initi al PSA value 0.2 ng/mL or great er follo wed by a subse quent confi rmato ry PSA value 0.2 ng/mL or great er. Value s obtai pat with diffe rent assay metho ds or kits canno t be used inter de jesus eably . Resul ts canno t be inter prete d as absol inupiat evide nce of the prese nce or absen ce of brunilda walls se. Not Available [facility] ([facility]) [address] [facility] [address], [place], [address], 06/30/2024 16:26:30 01/21/20 24 01/21/2024 US, liver [facility] [address] [place] [address] Phone: Fax: Name: RAFA CARMICHAEL Exam Date: : 948 Age 78 years Gender : M Access ion: [id number] Physic uche: NITESH PADRON Facili ty: [facility] Facili ty HSV: Outpat ient Exam: LIVER ULTRAS OUND US LIVER, 9:35 AM BLANKET BINDER INDICA TION: hepati c fibros is COMPAR ARMANDO: Prior liver ultras ound July 17, 2023 TECHNI QUE: Graysc melyssa and color Dopple r sonogr aphy of the right upper quadra nt FINDIN GS: The liver measur es 15 cm along loyd latera l margin demons trates diffus birdie increa sed echoge nicity consis tent with fatty infilt ration . No focal liver lesion s are seen. Blood flow is presen t in the portal vein, with approp riate direct ion of flow. There is no intrah epatic or extra hepati c biliar y ductal dilati on. The gallbl adder is normal in size and wall thickn ess withou t cholel ithias is or cholec ystiti s. The right kidney measur es 10 x 5 x 5 cm withou t hydron ephros is or suspic ious lesion s. Visual ized portio ns of the pancre as are unrema rkable . IMPRES ELIGIO: Mild fatty infilt ration of the liver withou t other signif icant findin gs in the visual ized right upper quadra nt viscer a. Electr onical ly signed by:Elieser aburto MD/0 08/2023 01:50 PM EST RP Workst ation: [id number] Dictat ed By: Aldo Angel Transc ribed By: Transc ribed On: 10:35 AM Electr onical ly signed by: Aldo Angel [id number] Thank you for referr RAFA Hare to [facility] al. Legall y authen ticate d by NIKKY HERNANDEZ 2023-03 10:35: 00 CC'ed Logic: Orderi ng Provid er: JONATHAN NITESH Attend ing Provid er: JONATHAN ZHOU Referr ing Provid er: JONATHAN ZHOU Admitt ing Provid er: JONATHAN ZHOU [email or web address] [facility] - [facility] Therapy [address] , [place], [address], 01/22/2024 15:31:13 Result Notes None recorded. Problems Name Problem SNOMED Code Status Onset Date Resolution Date Notes Provider Name and Address Organization Details Recorded Time Prostate specific antigen outside reference range 229731451 Active 2024 Nitesh Padron PA-C [address], [place], [address] , [place] [facility] & [place] 5 10:50:40 Edema of lower extremity 480087085 Active 2021 Nitesh Padron PA-C [address], [place], [address] , [place] [facility] [facility] [place] 2 13:46:35 Abdominal bloating 118419977 Active 2021 Nitesh Padron PA-C [address], [place], [address] , [place] [facility] & [place] 2 13:38:51 Candidiasis of mouth 01286912 Active 2022 Nitesh Padron PA-C [address], [place], [address] , [place] [facility] [facility] & [place] 3 16:31:25 Ascites 969040772 Active 2020 Not Available [facility] 2 13:28:35 Gastric varices 78396628 Active 2021 Gastric varices Not Available [facility] 2 13:28:35 Hepatic fibrosis 05499921 Active 2021 Not Available [facility] 2 13:28:35 History of polyp of colon 657567941 Active 2020 Not Available [facility] 2 13:28:35 Constipatio n 15430034 Active 2021 Not Available [facility] 2 13:28:35 Problem Notes None recorded. Procedures Surgical History Date Name Laterality Status Provider Name and Address Organization Details Recorded Time 4 Procedure Note completed Milvia Rees [place] - [facility] & [place] 01/02/2024 10:11:05 excision of basal cell carcinoma completed Sujata Cross [place] - [facility] & [place] 11/29/2021 13:33:56 procedure on finger completed Sujata Cross [place] - [place] [facility] & [place] 11/29/2021 13:34:43 Imaging Results Imaging Date Name Status LastModified by Organiz ation Details LastModified Time 01/21/2024 US, liver completed [email or web address] [facility] [address] , [place], [address], 01/22/2024 15:31:13 Procedure Notes None recorded. Medical Equipment None Reported. Allergies Allergen ID Allergen Name Allergen Category Reaction Reaction Severity Criticality Documentation Date Start Date Code Code System Note Provider Name and Address Organization Details Recorded Time 4569 acetamino phen medicatio n Not available Not available Not available 11/22/2021 161 RxNorm React ion: josefa Padron PA-C [address], [place], [address], [facility] - [place] - [place] [facility] [place] 5 10:59:19 4570 morphine medicatio n Not available Not available Not available 11/22/2021 7052 RxNorm React ion: Unkno wn, sever ity: Unkno wn Not Available [facility] 22:31:07 Medications Name Sig Start Date Stop Date Status Note LastModified by Organization Details LastModified Time clotrimazol e 10 mg sara DISSOLVE 1 SARA BY MOUTH FIVE TIMES DAILY FOR 14 DAYS 12/31 completed Not Available Not Available Not Available prednisone 10 mg tablet TAKE 1 TABLET 3 TIMES A DAY WITH FOOD FOR 5 DAYS THEN 1 TABLET TWICE DAILY FOR 5 DAYS THEN 1 TABLET BY MOUTH DAILY FOR 5 DAYS 12/31 completed Not Available Not Available Not Available doxycycline hyclate 100 mg capsule TAKE 1 CAPSULE BY MOUTH TWICE DAILY active Not Available Not Available No t Available polyethylen e glycol 3350 17 gram oral powder packet 1 packet mixed with 8 ounces of fluid Orally Once a day for 30 day(s) active Not Available Not Available No t Available atorvastati n 10 mg tablet TAKE 1 TABLET BY MOUTH ONCE DAILY FOR 90 DAYS active Not Available Not Available No t Available Claritin 10 mg tablet 1 tablet Orally Once a day for 30 day(s) 12/31 completed Not Available Not Available Not Available prednisone 5 mg tablet TAKE 1 TABLET BY MOUTH ONCE DAILY 06/29 completed Not Available Not Available Not Available nadolol 20 mg tablet 1 tablet Orally Once a day for 30 days 2024 active Not Available Not Available Not Avai lable benzonatate 100 mg capsule TAKE 2 CAPSULES BY MOUTH EVERY 6 HOURS NEEDED FOR COUGH active Not Available Not Available No t Available prednisone 2.5 mg tablet TAKE 2 TABLETS BY MOUTH ONCE DAILY active Not Available Not Available No t Available cephalexin 500 mg capsule TAKE 1 CAPSULE BY MOUTH TWICE DAILY 12/31 completed Not Available Not Available Not Available oseltamivir 75 mg capsule TAKE 1 CAPSULE BY MOUTH TWICE DAILY active Not Available Not Available No t Available indomethaci n 25 mg capsule TAKE 1 CAPSULE BY MOUTH TWICE DAILY WITH FOOD OR MILK 12/31 completed Not Available Not Available Not Available ibuprofen 200 mg tablet 1 tablet with food or milk as needed Orally Three times a day 12/31 completed Not Available Not Available Not Available simethicone 125 mg chewable tablet 1 tablet after meals and at bedtime as needed Orally Four times a day for 30 day(s) 12/31 completed Not Available Not Available Not Available Slo-Niacin 500 mg tablet,exte nded release 1 tablet with food Orally Once a day for 30 day(s) 12/31 completed Not Available Not Available Not Available furosemide 20 mg tablet Take 1 tablet every day by oral route as needed for 30 days, for lower leg swelling. active Not Available Not Available No t Available methylpredn isolone 4 mg tablets in a dose pack FOLLOW PACKAGE DIRECTION S 12/31 completed Not Available Not Available Not Available albuterol sulfate HFA 90 mcg/actuati on aerosol inhaler INHALE 2 PUFFS BY MOUTH EVERY 6 HOURS active Not Available Not Available No t Available cefdinir 300 mg capsule TAKE 1 CAPSULE BY MOUTH EVERY 12 HOURS FOR 13 DAYS 12/31 completed Not Available Not Available Not Available spironolact one 50 mg tablet TAKE 1 TABLET BY MOUTH EVERY DAY for 30 active Not Available Not Available No t Available Vascepa 1 gram capsule TAKE 2 CAPSULES BY MOUTH TWICE DAILY active Not Available Not Available No t Available Stiolto Respimat 2.5 mcg-2.5 mcg/actuati on solution for inhalation INHALE 2 PUFFS BY MOUTH ONCE DAILY active Not Available Not Available No t Available Bevespi Aerosphere 9 mcg-4.8 mcg HFA aerosol inhaler INHALE 2 PUFFS BY MOUTH TWICE DAILY active Not Available Not Available No t Available Trelegy Ellipta 100 mcg-62.5 mcg-25 mcg powder for inhalation INHALE 1 PUFF BY MOUTH EVERY DAY 12/31 completed Not Available Not Available Not Available BinaxNOW COVID-19 Ag Self Test kit TEST DIRECTED TODAY 06/20 completed Not Available Not Available Not Available Vitals Date Recorded Body height Body mass index (BMI) Body weight Body temperature Oxygen saturation Oxygen saturation in Arterial blood by Pulse oximetry Heart rate Systolic blood pressure Diastolic blood pressure Provider Name and Address Organization Details Last Updated DateTime 4 175.26 cm 23.5 kg/m2 79374.1 9 g 97.9 [degF] 100 % 100 % 68 /min 140 mm[Hg] 87 mm[Hg] Katarzyna Barros [place] [facility] [place] [facility] [place] 4 13:45:30 Date Recorded Body height Body mass index (BMI) Body weight Body temperature Oxygen saturation Oxygen saturation in Arterial blood by Pulse oximetry Heart rate Heart rate Systolic blood pressure Diastolic blood pressure Provider Name and Address Organization Details Last Updated DateTime 4 175.26 cm 23.7 kg/m2 12151.8 6 g 98.2 [degF] 96 % 96 % 66 /min 65 /min 137 mm[Hg] 86 mm[Hg] Milviarobert Carpenterwell JONAH [facility] & [place] 4 09:20:20 Date Recorded Body height Body mass index (BMI) Body weight Heart rate Systolic blood pressure Diastolic blood pressure Provider Name and Address Organization Details Last Updated DateTime 5 175.26 cm 25.1 kg/m2 63384.7 g 66 /min 141 mm[Hg] 92 mm[Hg] [facility] & [place] 5 09:59:51 Social History Question Answer Notes LastModified by Organizat ion Details LastModified Time Tobacco Smoking Status Current Every Day Smoker Sujata Cross [facility] & [place] 11/29/2021 13:33:15 What Is Your Level Of Alcohol Consumption? None Information not available 11/29/2021 What Is Your Level Of Caffeine Consumption? Moderate Information not available 12/23/2022 How Much Tobacco Do You Smoke? 1 PPD Information not available 04/12/2022 Do You Use Any Illicit Or Recreational Drugs? No Information not available 04/12/2022 Has Tobacco Cessation Counseling Been Provided? No Information not available 04/12/2022 Sex: Unknown Functional Status None recorded. Mental Status None recorded. Family History Relationship Description Onset Age of this Age Resolved Age Notes LastModified by Organization Details LastModified Time Unspecified Relation Heart disease [email or web address] Not available 13:32:47 Notes:Father- heart disease( ) Mother-Heart Disease() Medical History Condition Response Cancer Y Kidney Stones Y Immunizations Vaccine Type Date Status Note Provider Nam e and Address Organization Details Recorded Time Influenza, adjuvanted, trivalent, PF 7 [facility] [place] 06/20/2022 15:52:18 Influenza, high-dose, quadrivalent, PF 1 completed Sujata Cross [place] [facility] [place] 06/20/2022 15:52:18 Influenza, high-dose, quadrivalent, PF 0 completed Sujata Cross [place] 06/20/2022 15:52:18 COVID-19 vaccine, vector-nr, rS-Ad26, PF, 0.5 mL 2 completed Sujata Cross [place] 06/20/2022 15:52:18 COVID-19 vaccine, vector-nr, rS-Ad26, PF, 0.5 mL 1 completed Sujata Cross [place] [facility] [place] 06/20/2022 15:52:18 Pneumococcal conjugate PCV20, polysaccharide STV465 conjugate, adjuvant, PF 2 completed Sujata Cross [place] 06/20/2022 15:52:18 pneumococcal polysaccharide PPV23 6 completed Sujata Cross [place] [facility] [place] 06/20/2022 15:52:18 Tdap 9 completed Sujata Cross [place] 06/20/2022 15:52:18 Influenza, split virus, trivalent, PF 6 completed Sujata Cross [place] 06/20/2022 15:52:18 Past Encounters Encounter ID Performer Location Encounter Start Date Encounter Closed Date Diagnosis/Indication Diagnosis SNOMED-CT Code Diagnosis ICD10 Code Diagnosis Note [id number] Nitesh Padron PA-C [facility] [address] [address] 11/29/2021 12:57:29 11/29/2021 13:55:51 Hepatic fibrosis 19580638 K74.00 Stage 3 of 4. Transjugul ar liver biopsy performed at [facility] on May 18, 2021 with evidence of chronic cholestasi s and obstructiv e biliary features, not overly suggestive of PBC or AH. Prior lab workup with normal viral hepatitis labs, normal autoimmune workup. 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 ANTOINE fibrosure showed moderate steatosis, F2 fibrosis score, but ANTOINE grade of 0 inconsiste nt with a diagnosis of ANTOINE. Liver biopsy with no iron or steatosis. MRCP showed moderately distended GB with no biliary obstructio n or bile duct abnormalit y otherwise. -He was previously instructed to discontinu e Niacin due to potential for hepatotoxi city. He had been prescribed Niacin for over 30 years. Liver biopsy potentiall y consistent with medication related injury.-Wi ll obtain US liver and AFP now and q6 months for HCC screening- Check CMP, CBC, INR and formulate MELD score Gastric varices 80708589 I86.4 -Prophylax is: Continue Nadolol 20 mg p.o. daily for pre-primar y prophylaxi s of esophageal varices. HR at goal currently. He will continue to monitor HR and blood pressure at home.-No evidence of esophageal varices on EGD 08/2021. Ascites 000415994 R18.8 History ascites with prior paracentes is of 850 ml x1 previously . He has continued low dose diuretics with resolution of LE edema. No concerns for symptomati c ascites at this time.-Asci santiago/BLE edema: 2g/day sodium restrictio n counseled. Continue Lasix 20 mg daily. Spironolac tone previously discontinu ed due to breast tenderness . Check CMP now. Edema of l ower extremity 363472302 R60.0 [id number] Nitesh Padron PA-C [facility] [address] [facility] [address] [place] [address] 01/10/2022 12:47:25 01/10/2022 13:37:49 Hepatic fibrosis 02630771 K74.00 Gastric varices 91605338 I86.4 Ascites 492440564 R18.8 Edema of l ower extremity 120120639 R60.0 Abdominal bloating 97821 9008 R14.0 [id number] Bonita Live NP, S [facility] [address] [facility],[address] [place] [address] 05/08/2022 08:44:05 05/08/2022 09:41:33 Prostate specific antigen above reference range 424110303 R97.20 PSA results reviewed and discussed with pt in clinicWill do a 3 week course of antibiotic s with a repeat PSARTC in 4 weeks for f/u of PSA results Large prostate 986665788 N40.0 Nocturia 402655994 R35.1 History of calculus of kidney 819057232 Z87.442 [id number] Bonita Live NP, S [facility] [address] [place] [address],[address] [place] [address] 06/12/2022 11:11:54 06/12/2022 11:57:30 Prostate specific antigen above reference range 349051066 R97.20 PSA results discussed with pt in clinic.Pt will RTC in 3 months for f/u with PSA. PSA order provided to pt to have done a few days prior to appt so results can be discussed with him at this time. [id number] Nitesh Padron PA-C [facility] [address] [place] [address] 06/20/2022 15:41:44 06/20/2022 16:31:53 Hepatic fibrosis 88674816 K74.00 Gastric varices 59323446 I86.4 Ascites 434423996 R18.8 Edema of l ower extremity 014703390 R60.0 Abdominal bloating 30485 9008 R14.0 Candidiasis of mouth 797 31885 B37.0 [id number] Bonita Live NP, S [facility] [address] [place] [address],[address] [place] [address] 08/27/2022 11:15:48 08/27/2022 13:06:05 Nocturia 037013606 R35.1 History of calculus of kidney 823417641 Z87.442 Prostate s pecific antigen above reference range 660295505 R97.20 UA clearPSA order provided for pt to have performed. will call pt with resultsIf PSA stable, RTC in 4 months for f/u PSA results came back elevated at 4.3. Pt will come back to office on 09/11/2022 for 4k score. Will do Cefdinir course prior to test [id number] Sage Arreguin MD [facility] [address] [place] [address],[address] [place] [address] 10/02/2022 15:08:50 10/02/2022 16:07:58 Prostate specific antigen above reference range 389681581 R97.20 Nocturia 273484961 R35.1 History of calculus of kidney 599239930 Z87.442 [id number] Bonita Live NP, S [facility] [address] [place] [address],[address] [place] [address] 12/31/2022 11:10:52 12/31/2022 11:55:55 Prostate specific antigen above reference range 117413925 R97.20 UA clearPSA order provided to pt today to have performed. Will call pt with results. If PSA stable, RTC in 6 months for f/u Nocturia 726766419 R35.1 History of calculus of kidney 430339570 Z87.442 [id number] Nitesh Padron PA-C [facility] [address] [place] [address] 12/23/2022 08:44:55 12/23/2022 09:48:30 Hepatic fibrosis 68728515 K74.00 Gastric varices 49681531 I86.4 Ascites 921455025 R18.8 Edema of l ower extremity 034593842 R60.0 Abdominal bloating 83271 9008 R14.0 Candidiasis of mouth 797 62874 B37.0 [id number] Bonita Live NP, S [facility] [address] [place] [address],[address] [place] [address] 07/02/2023 12:39:24 07/02/2023 13:29:12 Prostate specific antigen above reference range 820746210 R97.20 PSA results reviewed and discussed with patient clinic today. PSA is stable at this time. Patient return to clinic in 6 months for follow-up with PSA. PSA order provided to patient have done a few days prior to appointmen t so results can be discussed with him at this time. Nocturia 917691838 R35.1 History of calculus of kidney 273571416 Z87.555 [id number] Nitesh Padron PA-C [facility] [address] [address] 07/04/2023 08:58:33 07/04/2023 10:38:52 Hepatic fibrosis 12664904 K74.00 Gastric varices 21455163 I86.4 Ascites 433123290 R18.8 Edema of l ower extremity 854986348 R60.0 Abdominal bloating 58210 9008 R14.0 Candidiasis of mouth 797 71107 B37.0 [id number] Bonita Live NP, S [facility] [address] [place] [address] 01/01/2024 13:23:45 01/05/2024 16:47:06 Prostate specific antigen above reference range 963600706 R97.20 [id number] Bonita Live NP, S [facility] [address] [place] [address] 01/01/2024 15:21:02 01/01/2024 15:33:56 Prostate specific antigen above reference range 032350604 R97.20 PSA results reviewed and discussed with patient in clinic today. PSA stableRTC in 6 months for f/u with PSA. PSA order provided to pt to have performed prior to appt so results can be discussed with him at this time. [id number] Nitesh Padron PA-C [facility] [address] [address] 01/02/2024 09:13:38 01/02/2024 10:36:26 Hepatic fibrosis 06918899 K74.00 Gastric varices 90836912 I86.4 Ascites 158558489 R18.8 [id number] Nitesh Padron PA-C [facility] [address] [address] 06/29/2024 09:46:46 06/29/2024 11:14:06 Hepatic fibrosis 44283310 K74.00 Gastric varices 42815580 I86.4 Ascites 633859641 R18.8 Prostate s pecific antigen outside reference range 806267410 R97.20 -Patient requests PSA lab for his OV with urology on . They present with a copy of the order. Will add on to today's lab draw. [id number] Bonita Live NP, S [facility] [place] [address] 07/01/2024 11:30:03 07/01/2024 12:15:14 Prostate specific antigen above reference range 739179325 R97.20 PSA results reviewed and discussed with patient in clinic today. PSA stableRTC in 6 months for f/u with PSA. PSA order provided to pt to have performed prior to appt so results can be discussed with him at this time. Health Concerns Section Related Observation LastModified by Organization Detai ls LastModified Time None Recorded Concern Status LastModified by Organization Details LastModified Time None Recorded Advance Directives Directive None Recorded Payers Encounter Date Sequence Insurance Name Policy Number Policy Mendiola Covered Member ID Mendiola Member ID Guarantor Name 01/01/2024 1 [employer] (MEDICARE REPLACEMENT/ ADVANTAGE - HMO) Rafa Bey [id number] Rafa Funez 01/01/2024 1 [employer] (MEDICARE REPLACEMENT/ ADVANTAGE - HMO) Rafa Bey [id number] Rafa uFnez 01/02/2024 1 [employer] (MEDICARE REPLACEMENT/ ADVANTAGE - HMO) Rafa Bey [id number] Rafa Funez 06/29/2024 1 [employer] (MEDICARE REPLACEMENT/ ADVANTAGE - HMO) Rafa Bey [id number] Rafa [facility] 07/01/2024 1 [employer] (MEDICARE REPLACEMENT/ ADVANTAGE - HMO) Rafa Funez [id number] Rafa Funez Notes Date Note Type Note Provider Name and Address Organization Details Recorded Time 01/01/2024 text/html Wrong Note. Charge completed for another time this date Bonita Live NP, S [address], [place], [address], [facility] & [place] 01/05/2024 16:47:05 01/01/2024 text/html 75 yowm RTC for 4 month f/u of elevated PSA. Recent PSA was 3.8 on 01/01/2024. 4K score on 09/13/2022 revealed total PSA 3.17 and 4k score 5.8. Reports good f/c of stream. Nocturia 0-1. He denies any dysuria, gross hematuria, bone pain, and anorexia. No family hx of CAP. History of kidney stones has seen Dr. Correa and Dr Mcghee in the past. Reports he has never had to have surgery related to kidney stones. Reports he was placed on a low oxalate diet related to stones. Last stone he passed was approximately 1 year ago. Patient does have a history of liver disease and sees Dr. East Prior PSAs: 4.0 07/02/2023, 3.9 on 12/31/2022, 4.3 on 08/27/2022, <0.13 on 06/01/2022 (after 3 week course of Cefdinir), 4.2 on 03/19/2022 Bonita Live NP, S [address], [place], [address], [facility] & [place] 01/01/2024 15:34:09 01/02/2024 text/html Mr. 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 He is doing well overall at this time. He has continued treatment with prednisone per rheumatology for possible polymyalgia rheumatica. He has been able to reduce his use of low-dose lasix for mild LE edema down to 1-2 days per week. He has held the medication a few times and did not have the issues. He has continued Nadolol and remains at goal heartrate. He notes mild diffuse joint pains, particularly in his knees. Otherwise, he is feeling well. Nitesh Padron PA-C [address], [place], [address], [facility] & [place] 01/02/2024 10:41:12 06/29/2024 text/html PREVIOUS (01/02/24): Mr. 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 He is doing well overall at this time. He has continued treatment with prednisone per rheumatology for possible polymyalgia rheumatica. He has been able to reduce his use of low-dose lasix for mild LE edema down to 1-2 days per week. He has held the medication a few times and did not have the issues. He has continued Nadolol and remains at goal heartrate. He notes mild diffuse joint pains, particularly in his knees. Otherwise, he is feeling well. CURRENT (06/29/24): Mr. 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 He is feeling well currently. He states that per rheumatology he is weaning prednisone down to 2.5 mg daily. He states they are planning on switch to biologic injections for his PMR. He has continued Nadolol, which he tolerates well. Resting heartrate has been at goal. He requests to have his PSA level checked her as ordered by urology. He has follow-up with them in 2 days. He notes minimal LE swelling. Nitesh Padron PA-C [address] [facility], [place], [address], [place] [facility] [place] [facility] [place] 06/29/2024 11:57:56 07/01/2024 text/html 07/01/2024 76 yowm RTC for 6 month f/u of elevated PSA. Recent PSA was 3.7 on 06/29/2024. States urinary stream is ooc weak in the morning and then good throughout the day.. Nocturia 0-1. He denies any dysuria, gross hematuria, bone pain, and anorexia. No family hx of CAP.States he was hospitalized in Apr r/t having Flu A. 01/01/2024 75 yowm RTC for 4 month f/u of elevated PSA. Recent PSA was 3.8 on 01/01/2024. 4K score on 09/13/2022 revealed total PSA 3.17 and 4k score 5.8. Reports good f/c of stream. Nocturia 0-1. He denies any dysuria, gross hematuria, bone pain, and anorexia. No family hx of CAP. History of kidney stones has seen Dr. Correa and Dr Mcghee in the past. Reports he has never had to have surgery related to kidney stones. Reports he was placed on a low oxalate diet related to stones. Last stone he passed was approximately 1 year ago. Patient does have a history of liver disease and sees Case 06/29/2024: PSA 3.710: PSA 3.: PSA 4.010: PSA 3.: 4K score 5.8 with PSA 3.176: PSA 4.: PSA < 0.13 (after 3 week course of Cefdinir)03/19/2022: PSA 4.2 Bonita Live, [employer], S [address], [place], [address], [facility] & [place] 07/01/2024 12:50:41
--- OUTSIDE RECORDS SUMMARY | 2024-07-08 10:34 | XMS_ITS ---
Author Organization Unknown TREATMENT PLAN [facility] Start Date Provider Encounter for Check-up [id number] [facility]
--- OUTSIDE RECORDS SUMMARY | 2024-07-08 10:34 | XMS_ITS | Continuity of Care Document ---
Author Organization [place] - [place] [facility] [place], [facility] Address [address] [facility] [address] [place] [address] Care Team Providers Care Bank Note Designer Name Role Phone AFDI HENRIQUEZ Primary Care Provider Assessment Encounter Date Assessment Date Assessment LastModified by Organization Details LastModified Time 06/29/2024 06/29/2024 78-year-old male with: 1) Advanced hepatic fibrosis, idiopathic: initially identified incidentally on outside imaging. Stage 3 of 4. Transjugular liver biopsy performed at [facility] on May 18, 2021 with evidence of [...] with his labs today. f/u 6 months. [email or web address] Not available 06/29/2024 11:57:30 Plan of Treatment Reminders Order Date Submit Date Provider Last Modified By Organization Details Last Modified Time Details Appointments Establish ed Visit 15 min 2024 11:00A M Nitesh Padron PA-C Not available Not available Not available OV EST 15 2024 09:30A M Bonita Live NP Not available Not available Not available Lab PSA, total, serum or plasma 2024 025 J[facility], [address], [address], [place], [address], 06/30/2024 16:26:30 CMP, serum or plasma 2024 025 JANE [facility], [address], [address], [place], [address], 06/30/2024 16:26:27 CBC 2024 025 JANE [facility], [address], [address], [place], [address], 06/30/2024 16:26:27 PT/INR 2024 025 JANE [facility], [address], [address], [place], [address], 06/30/2024 16:26:28 afp (alpha-fe toprotein ) tumor marker, serum or plasma 2024 READING [facility], [address], [address], [place], [address], 06/30/2024 16:26:29 Referral None recorded. Procedures None recorded. Surgeries None recorded. Imaging US, liver 2024 025 [id number] [facility], [address] [facility], [place], [address], 06/30/2024 15:33:15 Medication Orders nadolol 20 mg tablet 2024 [id number], [address], [phone], 06/29/2024 10:53:52 Patient TargetsNo targets recorded. Patient InstructionsNo instructions recorded. Reason for Referral None Reported. Problems Name Problem SNOMED Code Status Onset Date Resolution Date Notes Provider Name and Address Organization Details Recorded Time Prostate specific antigen outside reference range 054111097 Active 2024 Nitesh Padron PA-C [address] , [place], [address] , [place] [facility] [place] 5 10:50:40 Edema of lower extremity 702225065 Active 2021 Nitesh Padron PA-C [address] , [place], [address] , [place] - [facility] & [place] 2 13:46:35 Abdominal bloating 737729190 Active 2021 Nitesh Padron PA-C [address] , [place], [address] , [place] - [facility] [place] 2 13:38:51 Candidiasis of mouth 75269704 Active 2022 Nitesh Padron PA-C [address] , [place], [address] , [place] [facility] [place] 3 16:31:25 Ascites 423481071 Active 2020 Not Available [facility] 2 13:28:35 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 Procedures Surgical History Date Name Laterality Status Provider Name and Address Organization Details Recorded Time 4 Procedure Note completed Milvia Rees [facility] & [place] 01/02/2024 10:11:05 excision of basal cell carcinoma completed Sujata Cross [facility] & [place] 11/29/2021 13:33:56 procedure on finger completed Sujata Cross [facility] & [place] 11/29/2021 13:34:43 Imaging Results None recorded. Procedure Notes None recorded. Medical Equipment None Reported. Allergies Allergen ID Allergen Name Allergen Category Reaction Reaction Severity Criticality Documentation Date Start Date Code Code System Note Provider Name and Address Organization Details Recorded Time 4569 acetamino phen medicatio n Not available Not available Not available 11/22/2021 161 RxNorm React ion: josefa trinh [facility] Nitesh Padron PA-C [address] [facility], [place], [address] [place] [address] & [place] 5 10:59:19 4570 morphine medicatio n Not available Not available Not available 11/22/2021 7052 RxNorm React ion: Unkno wn, sg ity: Unkno wn Not Available [facility] 2 22:31:07 Medications Name Sig Start Date Stop [...] Updated DateTime 5 175.26 cm 25.1 kg/m2 25357.7 g 66 /min 141 mm[Hg] 92 mm[Hg] Milvia Rees [facility] & [place] 5 09:59:51 Social History Question Answer Notes LastModified by Organizat ion Details LastModified Time Tobacco Smoking Status Current Every Day Smoker Sujatagopal gonzalez, [facility] & [place] 11/29/2021 13:33:15 What Is Your Level Of Alcohol Consumption? None [email or web address] Information not available 11/29/2021 What Is Your Level Of Caffeine Consumption? Moderate [email or web address] Information not available 12/23/2022 How Much Tobacco [...] Details LastModified Time Unspecified Relation Heart disease [email or web address] Not available 13:32:47 Notes:Father- heart disease( ) Mother-Heart Disease() Medical History Condition Response Cancer Y Kidney Stones Y Immunizations Vaccine Type Date Status Note Provider Nam e and Address Organization Details Recorded Time Influenza, adjuvanted, trivalent, PF 7 completed Sujata Cross null, [place] - [facility] [place] & [place] 06/20/2022 15:52:18 Influenza, high-dose, quadrivalent, PF 1 completed Sujata Cross [place], [place] [facility] [place] [facility] [place] 06/20/2022 15:52:18 Influenza, high-dose, quadrivalent, PF 0 completed Sujata Cross [place] [facility] [place] [facility] [place] 06/20/2022 15:52:18 COVID-19 vaccine, vector-nr, rS-Ad26, PF, 0.5 mL 2 completed Sujata Cross [place], [place] [facility] [place] 06/20/2022 15:52:18 COVID-19 vaccine, vector-nr, rS-Ad26, PF, 0.5 mL 1 completed Sujata Cross [place], [place] [facility] [place] [facility] [place] 06/20/2022 15:52:18 Pneumococcal conjugate PCV20, polysaccharide ZCJ226 conjugate, adjuvant, PF 2 completed Sujata Cross [place], [place] [facility] [place] [facility] [place] 06/20/2022 15:52:18 pneumococcal polysaccharide PPV23 6 completed Sujata Cross [place] [facility] [place] 06/20/2022 15:52:18 Tdap 9 completed Sujata Cross null, [place] [facility] [place] [facility] [place] 06/20/2022 15:52:18 Influenza, split virus, trivalent, PF 6 completed Sujata Cross [facility], [place] - [facility] & [place] 06/20/2022 15:52:18 Past Encounters Encounter ID Performer Location Encounter Start Date Encounter Closed Date Diagnosis/Indication Diagnosis SNOMED-CT Code Diagnosis ICD10 Code Diagnosis Note [id number] Nitesh Padron PA-C [facility] [address] [facility] [address] [place] [address] 06/29/2024 09:46:46 06/29/2024 11:14:06 Hepatic fibrosis 78024441 K74.00 Gastric varices 67685850 I86.4 Ascites 520427740 R18.8 Prostate s pecific antigen outside reference range 725520359 R97.20 -Patient requests PSA lab for his OV with urology on . They present with a copy of the order. Will add on to today's lab draw. Health Concerns Section Related Observation LastModified by Organization Detai ls LastModified Time None Recorded Concern Status LastModified by Organization Details LastModified Time None Recorded Payers Encounter Date Sequence Insurance Name Policy Number Policy Mendiola Covered Member ID Mendiola Member ID Guarantor Name 06/29/2024 1 [employer] (MEDICARE REPLACEMENT/ ADVANTAGE - HMO) Rafa Bey [id number] Rafa Bey Notes Date Note Type Note Provider Name and Address Organization Details Recorded Time 06/29/2024 text/html PREVIOUS (01/02/24): Mr. Bey returns [...] notes minimal LE swelling. Nitesh Padron PA-C [address], [place], [address], [facility] - [place] - [place] & [place] 06/29/2024 11:57:56
--- NOTE | 2024-07-08 10:35 | XR_ITS ---
FINAL REPORT TECHNIQUE: 6 views cervical spine CLINICAL HISTORY: cervicalgia, NECK PAIN X1 YEAR COMPARISON: None FINDINGS: CERVICAL SPINE: The alignment of the cervical spine is unremarkable. No acute fracture is identified. No prevertebral soft tissue swelling is noted. There are moderate degenerative changes at the C5-6 and C6-7 levels, with disc space narrowing and anterior osteophytes. IMPRESSION: Moderate degenerative changes without acute bony abnormality. Reviewed, Interpreted and Dictated by Dick Sheriff MD Transcribed by Yue Padron Authenticated and [facility]
== END 2024-07-08 23:59 | disposition home or self-care (01) ==
LOC: RAD 10:32
PROVIDERS: PCP Family Medicine; Visit Provider Family Medicine
DX: M54.2 Cervicalgia (principal)
CPT/HCPCS: 72050

== ENCOUNTER 2024-11-11 12:43 | Outpatient (CLI) | payer MEDICARE, SELFPAY ==
--- OUTSIDE RECORDS SUMMARY | 2024-07-08 05:30 | XMS_ITS ---
[facility] Organization [facility] Address [address] [facility] [address] [place] [id number] Care Team Providers Care Oim Architect Name Role Phone Yousif Linder Primary Care Provider Allergies Allergen (clinical drug ingredient) Drug/Non Drug Allergy documented on EMR Reaction Allergy Type Onset Date Status acetaminophen Tylenol heart races Drug Allergy A ctive morphine Morphine flushed and thirsty Drug Allergy Active Results Component Value Reference Range Notes CBC Venipuncture (in house) Reviewed date:07/12/2024 09:46:06 AM Interpretation: Performing Lab: Notes/Report: wbc 8.3 3.5 - 10 lymph 20.1 15 - 50 mid 4.8 2 - 15 gran 75.1 35 - 80 rbc 5.67 3.5 - 5.5 hgb 15.4 11.5 - 16.5 hct 47.1 35 - 55 mcv 83.0 75 - 100 mch 27.3 25 - 35 mchc 32.8 31 - 38 platlet 259 100 - 400 P-Comprehensive Metabolic Pa linda (CMP) Reviewed date:07/12/2024 09:46:06 AM Interpretation: Performing Lab: Notes/Report: Test performed by [facility] , [address], [place] [address] Champ Vo MD, [employer] Specialist CLIA: [id number] Sodium 138 135-145 mmol/L Potassium 4.7 3.5-5.3 mmol/L Chloride 103 97-108 mmol/L CO2 21 22-32 mmol/L Glucose 116 65-99 mg/dL BUN 15 8-23 mg/dL Creatinine 1.08 0.70-1.30 mg/dL Calcium 10.1 8.6-10.4 mg/dL eGFR by Creatinine 71 >59 mL/min/1.73m2 Protein 7.2 6.0-8.3 g/dL Albumin 4.4 3.5-5.3 g/dL Alkaline Phosphatase 100 40-129 IU/L ALT (SGPT) 19 <5-55 IU/L AST (SGOT) 24 <5-46 IU/L Bilirubin, Total 0.8 <0.2-1.2 mg/dL A/G Ratio 1.6 1.1-2.5 P-Lipid Panel Reviewed date:07/12/2024 09:46:06 AM Interpretation: Performing Lab: Notes/Report: Test performed by [facility], [address] , [address], [place] [address] Champ Vo MD, [employer] Specialist CLIA: [id number] Cholesterol 201 <200 mg/dL Triglycerides 168 <150 mg/dL HDL Cholesterol 49 >39 mg/dL Cholesterol / HDL Ratio 4.10 0.00-4.99 Ratio Non-HDL Cholesterol 152 <130 mg/dL LDL Cholesterol (Calculation) 118 <130 mg/dL LDL Cholesterol Levels* Less than 100 mg/dL Optimal 100 to 129 mg/dL Near Optimal/ Above Optimal 130 to 159 mg/dL Borderline High 160 to 189 mg/dL High 190 mg/dL and above Very High * Categories as recommended by the 2004 ATPIII guidelines LDL/HDL Ratio 2.4 <3.3 Ratio LDL Cholesterol Patient History Test Date: 07/08/2024 LDL Results: 118 Units: mg/dL % Change: - X ray : Spine, cervical Reviewed date:07/12/2024 09:46:05 AM Interpretation: Performing Lab: Notes/Report: REASON FOR VISIT F/U Medications Medication SIG (Take, Route, Frequency, Duration) Notes Start Date End Date Status Furosemide 20 MG 1 tab(s) orally once a day; Duration: 30 day(s) Active Nadolol 20 MG 1 tablet orally once a day CORRECTED DOSING^^^^ Active Atorvastatin Calcium 10 MG Take 1 tablet by mouth once daily; Duration: 90 Active Stiolto Respimat 2.5-2.5 MCG/ACT INHALE 2 PUFFS BY MOUTH ONCE DAILY; Duration: 30 days Active Vascepa 1 GM Take 2 capsules by mouth twice daily; Duration: 90 Active MiraLax 17 GM/SCOOP 1 scoop mixed with 8 ounces of fluid Orally Once a day; Duration: 30 day(s) Active Centrum Adults - 1 tab(s) chewed once a day; Duration: 30 day(s) Active Indomethacin 25 MG 1 capsule with food or milk Orally Twice a day; Duration: 30 day(s) 11/07/2022 Active Citracal Plus - as directed Orally Active predniSONE 2.5 MG 1 tablet with food or milk Orally Once a day 03/18 Active Social History Tobacco Use: Social History Observation Description Date Details (start date - stop date) Former Smoker NA - 05/11/2024 CURRENT TOBACCO USE: Question Answer Notes Are you a: former smoker When did you stop smoking? 05/11/2024 How long has it been since you last smoked? 1-3 months Problems Problem Type SNOMED Code ICD Code Onset Dates Problem Status W/U Status Risk Notes Problem Cervicalgia (M54.2) Active confirmed Vital Signs Weight 168.6 lbs 07/08/2024 Blood pressure systolic 120 mm Hg 07/09/19 25 Blood pressure diastolic 82 mm Hg 025 Heart Rate 64 /min 07/08/2024 Height 70.50 in 07/08/2024 BMI 23.85 kg/m2 07/08/2024 Encounters Encounter Location Date Provider Diagnosis [facility] [address] [place] [id number] 07/08/2024 Yousif Linder COPD (chronic obstru ctive pulmonary disease) J44.9 ; Hypertriglyceridemia E78.1 ; Polymyalgia rheumatica M35.3 ; Thrombocytopenia D69.6 ; Cervicalgia M54.2 ; Tobacco use disorder F17.200 and BMI 23.0-23.9, adult Z68.23 Assessments Encounter Date Diagnosis (ICD Code) Assessment Notes Treatment Notes Treatment Clinical Notes Section Notes 07/08/2024 COPD (chronic obstructive pulmonary disease) (ICD-10 - J44.9) 07/08/2024 Hypertriglyceridemia (ICD-10 - E78.1) 07/08/2024 Polymyalgia rheumati ca (ICD-10 - M35.3) 07/08/2024 Thrombocytopenia (IC D-10 - D69.6) 07/08/2024 Cervicalgia (ICD-10 - M54.2) 07/08/2024 Tobacco use disorder (ICD-10 - F17.200) 07/08/2024 BMI 23.0-23.9, adult (ICD-10 - Z68.23) Plan Of Treatment Next Appt Details Follow Up: 6 Months, Reason: Progress Notes * JERE HARDENDOMayra: 9[birth year] (79 yo M)Acc No.[id number]:07/08/2024 Progress Notes Patient: JERE HUMPHREYS Provider: Yousif Linder M.D. :1945 A ge:78 Y S ex:Male Date:07/08/2024 Address:[place], [id number] Subjective: * Chief Complaints: * 1 . F/U. * HPI: H PI: 78 year old male presents with c/o Here for follow up on: P t is here today for a check up. Pt is fasting. Pt sts he is doing well and has no concerns at this time. . E NT/respiratory: States has quit smoking since he was hospitalized in April with flu syndrome. R heumatology: He had recent follow-up with his tomography technologist who is continuing to taper his prednisone dosage. He had routine blood work and was told there was a slight decrease in his kidney function. N hugo: He complains of some pain in his right neck radiating toward the right shoulder blade for the past few weeks. No known injury. States that his neck is always stiff. M melyssa Reproductive: He continues to follow with urology for his history of elevated PSA. Last PSA was 3.8. * ROS: D ERMATOLOGY: no R ally. n o H miguel. G ASTROENTEROLOGY: no N ausea. n o V omiting. n o D iarrhea.? U ROLOGY: no D ifficulty urinating. n o B lood in urine. * Medical History: T obacco abuse, Quit smoking 04/2024, Hypertriiglyceridemia, Melanoma removed from right eye, Idiopathic Cirrhosis with severe hepatic fibrosis - Dr. East, COPD, Polymyalgia rheumatica - followed by Dr. Jacobs, Elevated PSA - follows with urology. 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 * Hospitalization/Major Diagno stic Procedure: H MH - flu syndrome 04/2024. * Family History: F ather: 84 yrs, diagnosed with Heart Disease. M other: 89 yrs, diagnosed with Heart Disease. 1 son(s) , 1 daughter(s) . . one brother due to heart attack. * Social History: C URRENT TOBACCO USE: No A re you a: f ormer smoker, W hen did you stop smoking??05/11/2024, H ow long has it been since you last smoked? 1 -3 months. C affeine: yes, frequency:. Home smoke detector use: yes. Alcohol: No. * Medications: T aking predniSONE 2.5 MG Tablet 1 tablet with food or milk Orally Once a day , Notes to Pharmacist: 03/18, Taking Indomethacin 25 MG Capsule 1 capsule with food or milk Orally Twice a day , Taking Citracal Plus - Tablet as directed Orally , Taking MiraLax 17 GM/SCOOP Powder 1 scoop mixed with 8 ounces of fluid Orally Once a day , Taking Centrum Adults - Tablet Chewable 1 tab(s) chewed once a day , Taking Furosemide 20 MG Tablet 1 tab(s) orally once a day , Taking Nadolol 20 MG Tablet 1 tablet orally once a day , Notes to Pharmacist: CORRECTED DOSING^^^^, Taking Vascepa 1 GM Capsule Take 2 capsules by mouth twice daily , Taking Atorvastatin Calcium 10 MG Tablet Take 1 tablet by mouth once daily , Taking Stiolto Respimat 2.5-2.5 MCG/ACT Aerosol Solution INHALE 2 PUFFS BY MOUTH ONCE DAILY , Medication List reviewed and reconciled with the patient * Allergies: T ylenol: heart races, Morphine: flushed and thirsty. Objective: * Vitals: W t: 168.6, Temp: 97.4, BP: 120/82, HR: 64, Nurse: [facility], Ht: 70.50, BMI:23.85. * Examination: G eneral Examination: General Appearance: N AD. N hugo: s upple, no lymphadenopathy, no carotid bruits. H eart: C oarse breath sounds which are generally diminished.? No rales or wheezes. L ungs: c lear to auscultation. A bdomen: T hin, soft, nondistended and nontender. E xtremities: n o leg edema. Assessment: * Assessment: 1. C OPD (chronic obstructive pulmonary disease) - J44.9 2 . H ypertriglyceridemia - E78.1 3 . P olymyalgia rheumatica - M35.3 4 . T hrombocytopenia - D69.6 5 . C ervicalgia - M54.2 6 . T obacco use disorder - F17.200 7 . B HI 23.0-23.9, adult - Z68.23 Plan: * Treatment: Value Reference Range A /G Ratio 1.6 1.1-2.5 - * A lbumin 4.4 3.5-5.3 - g/dL * A lkaline Phosphatase 100 40-129 - IU/L * A LT (SGPT) 19 <5-55 - IU/L * A ST (SGOT) 24 <5-46 - IU/L * B ilirubin, Total 0.8 <0.2-1.2 - mg/dL * B UN 15 8-23 - mg/dL * C alcium 10.1 8.6-10.4 - mg/dL * C hloride 103 97-108 - mmol/L * C O2 21 L 22-32 - mmol/L * C reatinine 1.08 0.70-1.30 - mg/dL * G lucose 116 H 65-99 - mg/dL * P otassium 4.7 3.5-5.3 - mmol/L * S odium 138 135-145 - mmol/L * P rotein 7.2 6.0-8.3 - g/dL * e GFR by Creatinine 71 >59 - mL/min/1.73m2 * Yousif Linder 07/12/2024 9 :45:58 AM >See phone encounter ?LAB: P-Lipid Panel (Collection Date & Time - 07/08/2024 09:06 AM)* Value Reference Range C holesterol / HDL Ratio 4.10 0.00-4.99 - Ratio * C holesterol 201 H <200 - mg/dL * H DL Cholesterol 49 >39 - mg/dL * L DL Cholesterol (Calculation) 118 <130 - mg/d L * L DL/HDL Ratio 2.4 <3.3 - Ratio * N on-HDL Cholesterol 152 H <130 - mg/dL * T riglycerides 168 H <150 - mg/dL * Yousif Linder 07/12/2024 9 :45:58 AM >See phone encounter ?LAB: CBC Venipuncture (in house) (Collection Date & Time - 07/08/2024)* Value Reference Range w bc 8.3 3.5 - 10 * l ymph 20.1 15 - 50 * m id 4.8 2 - 15 * g ran 75.1 35 - 80 * r bc 5.67 3.5 - 5.5 * h gb 15.4 11.5 - 16.5 * h ct 47.1 35 - 55 * m cv 83.0 75 - 100 * m ch 27.3 25 - 35 * m chc 32.8 31 - 38 * p latlet 259 100 - 400 * Jessica Kimbrough 07/08/2024 11:0 5:19 AM > Yousif Linder 07/12/2024 9:45:58 AM >See phone encounter 2.?Polymyalgia rheumatica?LAB: P-Comprehensive Metabolic Panel (CMP) (Collection Date & Time - 07/08/2024 09:06 AM)* Value Reference Range A /G Ratio 1.6 1.1-2.5 - * A lbumin 4.4 3.5-5.3 - g/dL * A lkaline Phosphatase 100 40-129 - IU/L * A LT (SGPT) 19 <5-55 - IU/L * A ST (SGOT) 24 <5-46 - IU/L * B ilirubin, Total 0.8 <0.2-1.2 - mg/dL * B UN 15 8-23 - mg/dL * C alcium 10.1 8.6-10.4 - mg/dL * C hloride 103 97-108 - mmol/L * C O2 21 L 22-32 - mmol/L * C reatinine 1.08 0.70-1.30 - mg/dL * G lucose 116 H 65-99 - mg/dL * P otassium 4.7 3.5-5.3 - mmol/L * S odium 138 135-145 - mmol/L * P rotein 7.2 6.0-8.3 - g/dL * e GFR by Creatinine 71 >59 - mL/min/1.73m2 * Yousif Linder 07/12/2024 9 :45:58 AM >See phone encounter 3.?Cervicalgia?Imaging: X ray : Spine, cervical (Performed Date - 07/08/2024)* Yousif Linder 07/12/2024 9 :45:58 AM >See phone encounter * Procedure Codes: G 2211 Complex e/[place], [address] CBC WITH AUTO DIFF, 3074F SYST BP LT 130 MM HG, 3079F DIAST BP 80-89 MM HG, G8420 BMI<30 AND >=22 CALC & DOCU * Follow Up: 6 Months * Images: Billing Information: * Visit Code: 86115 Office Visit, Est Pt., Level 3. * Procedure Codes: G2211 Complex e/[place]. [address] CBC WITH AUTO DIFF. 3074F SYST BP LT 130 MM HG. 3079F DIAST BP 80-89 MM HG. G8420 BMI<30 AND >=22 CALC & DOCU. * Electronic signature of Yousif Linder MD on 11/11/2024 at 12:47 PM EDT Sign off status: Pending * Provider: Yousif Linder M.D. Date: 0 07/08/2024 Generated for Printi ng/[place]/eTransmitting on: 0 11/11/2024 12:47 PM EDT History and Physical Notes * HPI (History of Present Illness) Category Sub-Category Detail Notes Category Not es Neck He complains of some pain in his right neck radiating toward the right shoulder blade for the past few weeks. No known injury. States that his neck is always stiff. Male Reproductive He continu es to follow with urology for his history of elevated PSA. Last PSA was 3.8 Rheumatology He had recent follow-up with his tomography technologist who is continuing to taper his prednisone dosage. He had routine blood work and was told there was a slight decrease in his kidney function. HPI Here for follow up on: Pt is here today for a check up. Pt is fasting. Pt sts he is doing well and has no concerns at this time. Examination Category Sub-Category Detail Notes Category Not es General Examination Heart: Coarse breat h sounds which are generally diminished. No rales or wheezes Lungs: clear to auscultatio n Abdomen: Thin, soft, nondiste nded and nontender Extremities: no leg edema General Appearance: NAD Skin: Neck: supple, no lymphaden opathy, no carotid bruits
--- OUTSIDE RECORDS SUMMARY | 2024-09-20 06:15 | XMS_ITS ---
[facility] Address [address] [facility] [address] [facility] [address] [place] [id number] Care Team Providers Care Guard Immigration Name Role Phone Yousif Linder Primary Care Provider [phone] Melanie Escobar Unavailable [phone] Allergies Allergen (clinical drug ingredient) Drug/Non Drug Allergy documented on EMR Reaction Allergy Type Onset Date Status acetaminophen Tylenol heart races Drug Allergy A ctive morphine Morphine flushed and thirsty Drug Allergy Active REASON FOR VISIT Possible Spider Bite Medications Medication SIG (Take, Route, Frequency, Duration) Notes Start Date End Date Status Furosemide 20 MG 1 tab(s) orally once a day; Duration: 30 day(s) Active Centrum Adults - 1 tab(s) chewed once a day; Duration: 30 day(s) Active Atorvastatin Calcium 10 MG Take 1 tablet by mouth once daily for 90 days; Duration: 90 Active Nadolol 20 MG 1 tablet orally once a day; Duration: 30 days CORRECTED DOSING^^^^ Active Stiolto Respimat 2.5-2.5 MCG/ACT INHALE 2 PUFFS BY MOUTH ONCE DAILY; Duration: 30 days Active Citracal Plus - as directed Orally Active Doxycycline Hyclate 100 MG 1 capsule Orally twice a day; Duration: 7 days 09/20/2024 Active Indomethacin 25 MG 1 capsule with food or milk Orally Twice a day; Duration: 30 day(s) 11/07/2022 Active predniSONE 2.5 MG 1 tablet with food or milk Orally Once a day /2 Active MiraLax 17 GM/SCOOP 1 scoop mixed with 8 ounces of fluid Orally Once a day; Duration: 30 day(s) Active Vascepa 1 GM Take 2 capsules by mouth twice daily; Duration: 90 sent on 07/20/24 as 90 day supply Active Social History Tobacco Use: Social History Observation Description Date Details (start date - stop date) Former Smoker NA - 05/11/2024 CURRENT TOBACCO USE: Question Answer Notes Are you a: former smoker When did you stop smoking? 05/11/2024 How long has it been since you last smoked? 1-3 months Vital Signs Weight 175.6 lbs 09/20/2024 Blood pressure systolic 122 mm Hg 09/21/19 25 Blood pressure diastolic 76 mm Hg 025 Heart Rate 65 /min 09/20/2024 Height 70.50 in 09/20/2024 BMI 24.84 kg/m2 09/20/2024 Encounters Encounter Location Date Provider Diagnosis [facility] [address] [facility] [address], [place] [id number] 09/20/2024 Melanie Ecsobar Cellulitis of left leg L03.116 and BMI 24.0-24.9, adult Z68.24 Assessments Encounter Date Diagnosis (ICD Code) Assessment Notes Treatment Notes Treatment Clinical Notes Section Notes 09/20/2024 Cellulitis of left leg (ICD-10 - L03.116) Place a bandaid on area if it rubs against the leg. Keep it clean and dry. Take antibiotic for 7 days. If it does not get better or worse he may need a different antibiotic. 09/20/2024 BMI 24.0-24.9, adult (ICD-10 - Z68.24) Plan Of Treatment Medication Medication Name Sig Start Date Stop Date Notes Doxycycline Hyclate 100 MG 1 capsule Ora lly twice a day; Duration: 7 days 09/20/2024 Treatment Notes Assessment Notes Cellulitis of left leg Place a bandaid o n area if it rubs against the leg. Keep it clean and dry. Take antibiotic for 7 days. If it does not get better or worse he may need a different antibiotic. Next Appt Details Follow Up: prn, Reason: Progress Notes * JERE HARDENDOB: [birth year] (79 yo M)Acc No.[id number]:09/20/2024 Progress Notes Patient: Farooq JERE OSORIO Provider: OSCAR Mahmood :1945 A ge:79 Y S ex:Male Date:09/20/2024 Address:[address], [id number] Pcp:Yousif Lindre Subjective: * Chief Complaints: * 1 . Possible Spider Bite. * HPI: D ermatology: He sits outside on a stool and says there are spiders around a lot; actually did not see insect that bit him. 79 year old male presents with c/o redness u nchanged. c/o bug bites P t here for maybe spider bite on his right leg. Pt states that it came up last week. . Denies : itching. C onstitutional: Denies : fatigue. D enies : myalgia. D enies : fever.? * ROS: C ONSTITUTIONAL: no F ever. n o F atigue. D ERMATOLOGY: no R ally. n o H miguel. G ASTROENTEROLOGY: no N ausea. n o V omiting. n o D iarrhea.? U ROLOGY: no D ifficulty urinating. n o B lood in urine. b ug bit right lower extremity with redness, heat and swelling. * Medical History: T obacco abuse, Quit [...] tab(s) orally once a day , Taking Stiolto Respimat 2.5-2.5 MCG/ACT Aerosol Solution INHALE 2 PUFFS BY MOUTH ONCE DAILY , Taking Nadolol 20 MG Tablet 1 tablet orally once a day , Notes to Pharmacist: CORRECTED DOSING^^^^, Taking Atorvastatin Calcium 10 MG Tablet Take 1 tablet by mouth once daily for 90 days , Taking Vascepa 1 GM Capsule Take 2 capsules by mouth twice daily , Notes to Pharmacist: sent on 07/20/24 as 90 day supply, Medication List reviewed and reconciled with the patient * Allergies: T ylenol: heart races, Morphine: flushed and thirsty. Objective: * Vitals: W t: 175.6, Temp: 97.6, BP: 122/76, HR: 65, Nurse: cindy, Ht: 70.50, BMI:24.84. * Examination: G eneral Examination: General Appearance: N AD, appears healthy, alert, pleasant.?Heart: R RR. L ungs: n ormal, clear to auscultation. S kin: b ite on right inner lower extremity, warm to touch, redness about 4x6cm. No drainage to notate. ? Assessment: * Assessment: 1. C ellulitis of left leg - L03.116 (Primary) 2 . B TX 24.0-24.9, adult - Z68.24 Plan: * Treatment: * Procedure Codes: G 2211 Complex e/m visit add on, 1036F TOBACCO NON-USER, G8420 BMI<30 AND >=22 CALC & DOCU, G3150 BP SCR PRFRM RCMDD DEFIND SCR INTVL, G8752 MOST RECENT SYSTOLIC BP < 140MM HG, G8754 MOST RECENT DIASTOLIC BP < 90MM HG * Follow Up: p rn * Images: Billing Information: * Visit Code: 73732 Office Visit, Est Pt., Level 3. * Procedure Codes: G2211 Complex e/m visit add on. 1036F TOBACCO NON-USER. G8420 BMI<30 AND >=22 CALC & DOCU. G8783 BP SCR PRFRM RCMDD DEFIND SCR INTVL. G8752 MOST RECENT SYSTOLIC BP < 140MM HG. G8754 MOST RECENT DIASTOLIC BP < 90MM HG. * Electronic signature of Briseyda Escobar APRN on 11/11/2024 at 12:47 PM EDT Sign off status: Pending * Provider: OSCAR Mahmood Date: 0 09/20/2024 Generated for Ana dale/Xochilt/Daisyitting on: 0 11/11/2024 12:47 PM EDT History and Physical Notes * HPI (History of Present Illness) Category Sub-Category Detail Notes Category Not es Dermatology redness unchanged itching bug bites Pt here for maybe sp ider bite on his right leg. Pt states that it came up last week. Constitutional fatigue myalgia fever Examination Category Sub-Category Detail Notes Category Not es General Examination Heart: RRR Lungs: normal, clear to aus cultation General Appearance: NAD, appears healthy , alert, pleasant Skin: bite on right inner lower extremity, warm to touch, redness about 4x6cm. No drainage to notate
--- OUTSIDE RECORDS SUMMARY | 2024-11-08 05:31 | XMS_ITS ---
Author Organization [facility] Address [address] [place] [id number] Care Team Providers Care Director Of Business Continuity Name Role Phone Yousif Linder Primary Care Provider REASON FOR VISIT due LDCT Encounters Encounter Location Date Provider Diagnosis [facility] [address] [place] [id number] 11/08/2024 Yousif Linder Screening for lung cancer Z12.2 Assessments Encounter Date Diagnosis (ICD Code) Assessment Notes Treatment Notes Treatment Clinical Notes Section Notes 11/08/2024 Screening for lung cancer (ICD-10 - Z12.2) Plan Of Treatment Pending Test Test Name Order Date CT Scan : Chest, low dose 11/08/2024 Progress Notes * FINA TYEHERMANDOB: [birth year] (79 yo M)Acc No.[id number]:11/08/2024 Patient: JERE HUMPHREYS :1945 A ge:79 Y S ex:Male Address:[address], [place], [address] Subjective: * Chief Complaints: * d ue LDCT * Medical History: * Surgical History: * Hospitalization/Major Diagno stic Procedure: * Medications: Objective: * Vitals: * Physical Examination: Assessment: * Assessment: 1. S creening for lung cancer - Z12.2 (Primary) Plan: * Treatment: * Procedure Codes: * true * Date: Generated for Printi ng/Faxing/eTransmitting on: 0 11/11/2024 12:46 PM EDT
--- OUTSIDE RECORDS SUMMARY | 2024-11-11 12:47 | XMS_ITS | Patient Health Record ---
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[employer] Name Role Phone Yousif Linder Primary Care Provider Melanie Escobar Unavailable [phone] Kathy Kennedy Unavailable [phone] Allergies Allergen (clinical drug ingredient) Drug/Non Drug [...] - 38 platlet 259 100 - 400 Covid test (in house) Reviewed date:04/23/2024 06:09:20 PM Interpretation:neg Performing Lab: Notes/Report: neg Result: neg CBC Fingerstick (in house) Reviewed date:04/23/2024 06:09:20 PM Interpretation: Performing Lab: Notes/Report: wbc 9.6 3.5 - 10 lym 14.1 15 - 50 mid 3.9 2 - 15 gran 82.0 35 - 80 rbc 5.57 3.5 - 5.5 hgb 15.3 11.5 - 16.5 hct 45.9 35 - 55 mcv 82.4 75 - 100 mch 27.4 25 - 35 mchc 33.2 31 - 38 plat 95 100 - 400 Influenza Screen (in house) Reviewed date:04/23/2024 06:09:20 PM Interpretation:neg Performing Lab: Notes/Report: neg results neg P-Comprehensive Metabolic Pa linda (CMP) Reviewed date:07/12/2024 09:46:06 AM Interpretation: Performing Lab: Notes/Report: CLIA: [id number] Champ Vo MD, Draw In Hand [address] [place] [address] , [address], [place] [address] Test performed by [employer] Sodium 138 135-145 mmol/L Potassium 4.7 3.5-5.3 [...] Interpretation: Performing Lab: Notes/Report: Test performed by [employer] [address] [place] [address] , [address], [place] [address] Champ Vo MD, Draw In Hand CLIA: [id number] Cholesterol 201 <200 mg/dL Triglycerides 168 <150 [...] ATPIII guidelines LDL/HDL Ratio 2.4 <3.3 Ratio ____ LDL Cholesterol Patient History ____ Test Date: 07/08/2024 LDL Results: 118 Units: mg/dL % Change: - ____ X ray : Spine, cervical Reviewed date:07/12/2024 09:46:05 AM Interpretation: Performing Lab: Notes/Report: H-CBC Reviewed date:04/23/2024 06:09:20 PM Interpretation: Performing Lab: Notes/Report: WBC 12.3 4.8-10.8 K/mm3 RBC 5.89 4.60-6.20 M/mm3 HGB 16.0 14.1-18.0 g/dL HCT 48.7 42.0-52.0 % MCV 82.7 80-94 fl MCH 27.2 27.0-31.2 pg MCHC 32.9 31.8-35.4 g/dL RDW 14.6 11.5-17.5 % PLT 157 142-424 K/mm3 MPV 10.1 7.4-10.4 fl NE% 77.0 37.0-80.0 % LY% 7.8 10-50 % MO% 8.9 1.7-9.3 % EO% 5.2 0.1-12.0 % BA% 0.6 0.1-2.0 % NE# 9.4 1.8-7.8 K/mm3 LY# 1.0 0.7-4.5 K/mm3 MO# 1.1 0.1-1.0 K/mm3 EO# 0.6 0.0-0.4 K/mm3 BA# 0.1 0-0.2 K/mm3 H-BMP Reviewed date:04/23/2024 06:09:20 PM Interpretation: Performing Lab: Notes/Report: NA 134 136-145 mmol/L K 4.5 3.5-5.1 mmoL/L CL 99 98-107 mmol/L CO2 27 22.0-30.0 mmol/L GAP 12.5 5-15 mEq/L BUN 18 9-20 mg/dl CREATT 0.90 0.66-1.25 mg/dl CRCLE 63 50-200 mL/min GFRAA 99 >60 ML/MIN EGFR 82 >60 ml/min GLU 136 74-100 mg/dl CA 9.2 8.4-10.2 mg/dl H-Magnesium Reviewed date:04/23/2024 06:09:20 PM Interpretation: Performing Lab: Notes/Report: MG 1.6 1.6-2.3 mg/dl M-Mycoplasma Pneumo IGM (Rap id) Reviewed date:04/24/2024 01:21:30 PM Interpretation: Performing Lab: Notes/Report: MYCOIGM Non-Reactive Non-Reactiv H-CMP Reviewed date:04/24/2024 01:21:30 PM Interpretation: Performing Lab: Notes/Report: NURSE JEANNIE COLLECTED AFTER PATIENT WAS FINISHED EATING PER SECOND FLOOR NA 134 136-145 mmol/L K 4.1 3.5-5.1 mmoL/L CL 97 98-107 mmol/L CO2 25 22.0-30.0 mmol/L GAP 16.1 5-15 mEq/L BUN 19 9-20 mg/dl CREATT 0.90 0.66-1.25 mg/dl CRCLE 63 50-200 mL/min GFRAA 99 >60 ML/MIN EGFR 82 >60 ml/min GLU 149 74-100 mg/dl CA 9.2 8.4-10.2 mg/dl BILIT 0.7 0.2-1.3 mg/dl AST 52 17-59 U/L ALT 32 12-78 U/L TP 6.6 6.3-8.2 g/dl ALB 4.1 3.5-5.0 g/dl GLOB 2.5 1.3-3.2 g/dL AGRATIO 1.6 1.1-1.8 ALP 74 38-126 U/L H-Culture, Blood Reviewed date:04/29/2024 09:01:39 AM Interpretation: Performing Lab: Notes/Report: NURSE SBRADELIJAH COLLECTED AFTER PATIENT WAS FINISHED EATING PER SECOND FLOOR CUBLD NO GROWTH AFTER 5 DAYS CUBLD NO GROWTH AFTER 5 DAYS H-Sputum Culture with Gram Taniya saha Reviewed date:04/27/2024 10:56:33 AM Interpretation: Performing Lab: Notes/Report: GS Gram Stain: GS 10 - 25 Epithelial Cells / LPF GS Many Gram Positive Cocci in Chains GS Many Gram Positive Cocci in Clusters CUSPU Normal Respiratory Elyssa H-CRP Reviewed date:04/24/2024 01:21:30 PM Interpretation: Performing Lab: Notes/Report: NURSE SBRADELIJAH COLLECTED AFTER PATIENT WAS FINISHED EATING PER SECOND FLOOR CRP 52.2 0-4 mg/L H-Lactic Acid Reviewed date:04/24/2024 01:21:30 PM Interpretation: Performing Lab: Notes/Report: Comment Repeat 2nd or 3rd lactic acid to reflex if initial or subseq level > 2 COLLECTED AFTER PATIENT WAS FINISHED EATING PER SECOND FLOOR NURSE SBRADFORD LACTIC 1.2 0.7-2.1 mmol/L H-URI Panel-mini (Rhino,flu A/B, RSV, Covid) Reviewed date:04/24/2024 01:21:30 PM Interpretation: Performing Lab: Notes/Report: RHINOPCR Not Detected NotDetected INFLUAPCR Detected NotDetected INFLUB Not Detected NotDetected RSVPCR Not Detected NotDetected COVIDHMH Not Detected NotDetected Effective 11/07/20, Positive covid results will no longer be called to the ordering physician. Infection control and the physician?s office will continue to report positive covid results to the local Health Department as required. This assay is for in vitro diagnostic use under FDA Emergency Use Authorization only. Negative results do not preclude infection with SARS CoV 2 virus and should not be the sole basis of a patient treatment/management or public health decision. Follow up testing should be performed according to the current CDC recommendations. H-CBC Reviewed date:04/24/2024 01:21:30 PM Interpretation: Performing Lab: Notes/Report: WBC 9.9 4.8-10.8 K/mm3 RBC 5.28 4.60-6.20 M/mm3 HGB 14.3 14.1-18.0 g/dL Delta: 16.0 o n 04/23/24-1644 HCT 43.7 42.0-52.0 % MCV 82.8 80-94 fl MCH 27.1 27.0-31.2 pg MCHC 32.7 31.8-35.4 g/dL RDW 14.6 11.5-17.5 % PLT 119 142-424 K/mm3 MPV 10.0 7.4-10.4 fl NE% 74.6 37.0-80.0 % LY% 13.3 10-50 % MO% 11.2 1.7-9.3 % EO% 0.1 0.1-12.0 % BA% 0.4 0.1-2.0 % NE# 7.4 1.8-7.8 K/mm3 LY# 1.3 0.7-4.5 K/mm3 MO# 1.1 0.1-1.0 K/mm3 EO# 0.0 0.0-0.4 K/mm3 BA# 0.0 0-0.2 K/mm3 H-BMP Reviewed date:04/24/2024 01:21:30 PM Interpretation: Performing Lab: Notes/Report: NA 133 136-145 mmol/L K 4.0 3.5-5.1 mmoL/L CL 97 98-107 mmol/L CO2 29 22.0-30.0 mmol/L GAP 11.0 5-15 mEq/L BUN 17 9-20 mg/dl CREATT 0.80 0.66-1.25 mg/dl CRCLE 63 50-200 mL/min GFRAA 114 >60 ML/MIN EGFR 94 >60 ml/min GLU 99 74-100 mg/dl Delta: 149 on 04/23/24-190 CA 8.8 8.4-10.2 mg/dl H-Magnesium Reviewed date:04/24/2024 01:21:30 PM Interpretation: Performing Lab: Notes/Report: MG 1.7 1.6-2.3 mg/dl CBC Fingerstick (in house) Reviewed date:01/22/2024 01:03:27 PM Interpretation: Performing Lab: Notes/Report: wbc 14.8 3.5 - 10 lym 15.0 15 - 50 mid 4.2 2 - 15 gran 80.8 35 - 80 rbc 6.32 3.5 - 5.5 hgb 16.8 11.5 - 16.5 hct 53.3 35 - 55 mcv 84.4 75 - 100 mch 26.6 25 - 35 mchc 31.6 31 - 38 plat 129 100 - 400 Reason For Referral No Information Medications Medication SIG (Take, Route, Frequency, Duration) Notes Start Date End Date Status Stiolto Respimat 2.5-2.5 MCG/ACT INHALE 2 PUFFS BY MOUTH ONCE DAILY; Duration: 30 Active Citracal Plus - as directed Orally Active Doxycycline Hyclate 100 MG 1 capsule Orally twice a day; Duration: 7 days 09/20/2024 Active Indomethacin 25 MG 1 capsule with food or milk Orally Twice a day; Duration: 30 day(s) 11/07/2022 Active predniSONE 2.5 MG 1 tablet with food or milk Orally Once a day 03/18 Active Nadolol 20 MG 1 tablet Orally Once a day; Duration: 30 days Active Atorvastatin Calcium 10 MG Take 1 tablet by mouth once daily for 90 days; Duration: 90 Active Furosemide 20 MG 1 tab(s) orally once a day; Duration: 30 day(s) Active Centrum Adults - 1 tab(s) chewed once a day; Duration: 30 day(s) Active MiraLax 17 GM/SCOOP 1 scoop mixed with 8 ounces of fluid Orally Once a day; Duration: 30 day(s) Active Vascepa 1 GM Take 2 capsules by mouth twice daily; Duration: 90 sent on 07/20/24 as 90 day supply Active Immunizations Vaccine Route Administration Date Status Comme nts Tetanus Tdap-Adacel (over 7yrs) IM Intramuscular 06/26/2018 Administered Prevnar (PCV20) IM Intramuscular 07/18/2021 Administered PNEUMOVAX 23 VACCINE Unknown 02/13/2016 Administered Fluzone High Dose (65yr and older) Unknown 02/20/2019 Administered Fluzone High Dose (65yr and older) Unknown 01/25/2020 Administered Fluzone High Dose (65yr and older) Unknown 12/15/2020 Administered Fluzone High Dose (65yr and older) Unknown 01/10/2022 Administered Fluzone High Dose (65yr and older) Unknown 01/21/2023 Administered COVID 19 Robbin Unknown 06/21/2020 Administered COVID 19 Robbin Unknown 03/29/2021 Administered Social History Tobacco Use: Social History Observation [...] Problem Status W/U Status Risk Notes Problem Leukocytosis (344236948) Leukocytosis (D72.829) Active confirmed Problem COPD - Chronic obstructive pulmonary disease (36571664) COPD (chronic obstructive pulmonary disease) (J44.9) Active confirmed Problem Hypertriglyceridemia (126444708) Hypertriglyceridemia (E78.1) Active confirmed Problem Cervicalgia (76620987) Cervicalgia (M54.2) Active confirmed Problem Polymyalgia rheumatica (87593869) Polymyalgia rheumatica (M35.3) Active confirmed Problem History of polyp of colon (situation) (354158316) History of colon polyps (Z86.010) Active confirmed Problem Thrombocytopenia (058951262) Thrombocytopenia (D69.6) Active confirmed Problem Polyarthritis (048831375) Polyarthritis (M13.0) Active confirmed Problem Polymyalgia (32419241) Polymyalgia (M35.3) Active confirmed Problem Cirrhotic (663795177) Cirrhosis (K74.60) Active confirmed Problem Tobacco use (348472702) Tobacco use disorder (F17.200) Active confirmed Problem Chronic airway obstruction (08744445) Chronic airway obstruction (J44.9) Active confirmed Problem 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) Hepatic cirrhosis, unspecified hepatic cirrhosis type, unspecified whether ascites present (K74.60) Active confirmed Problem History of malignant melanoma of eye (782084100763641) History of malignant melanoma of eye (Z85.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) Active confirmed Vital Signs Heart Rate 65 /min 09/20/2024 Blood pressure diastolic 76 mm Hg 09/20/2024 Height 70.50 in 09/20/2024 Blood pressure systolic 122 mm Hg 09/20/2024 Weight 175.6 lbs 09/20/2024 BMI 24.84 kg/m2 09/20/2024 Encounters Encounter Location Date Provider Diagnosis [facility] [address] [place] [id number] 01/22/2024 R Krishan [place] Leukocytosis D72.829 ; Tobacco use disorder F17.200 and COPD (chronic obstructive pulmonary disease) J44.9 [facility] [address] [facility] [address] [place] [id number] 04/23/2024 Kathy Crowmerle Acute URI J06.9 and Acute respiratory failure with hypoxia J96.01 Marcus [address] [facility] [address] [place] [id number] 05/06/2024 Kathy Crowdy Acute respiratory fa ilure with hypoxia J96.01 ; Influenza A J10.1 and COPD (chronic obstructive pulmonary disease) J44.9 [facility] [address] [facility] [address] [place] [id number] 07/08/2024 R Krishan [place] COPD (chronic obstru ctive pulmonary disease) J44.9 ; Hypertriglyceridemia E78.1 ; Polymyalgia rheumatica M35.3 ; Thrombocytopenia D69.6 ; Cervicalgia M54.2 ; Tobacco use disorder F17.200 and BMI 23.0-23.9, adult Z68.23 [facility] [address] [facility] [address] [place] [id number] 09/20/2024 Melanie Escobar Cellulitis of left leg L03.116 and BMI 24.0-24.9, adult Z68.24 [facility] [address] [facility] [address] [place] [id number] 11/17/2023 R Krishan [place] [facility] [address] [facility] [address] [place] [id number] 02/09/2024 R Krishan [place] [facility] [address] [facility] [address] [place] [id number] 03/31/2024 R Krishan [place] [facility] [address] [place], [place] [id number] 04/26/2024 R Krishan [place] [facility] [address] [place], [place] [id number] 05/07/2024 R Krishan [place] [facility] [address] [place], [place] [id number] 06/02/2024 R Krishan [place] [facility] [address] [place], [place] [id number] 07/12/2024 R Krishan [place] [facility] [address] [place], [place] [id number] 07/30/2024 R Krishan [place] Hepatic cirrhosis, unspecified hepatic cirrhosis type, unspecified whether ascites present K74.60 [facility] [address] [place], [place] [id number] 10/18/2024 R Krishan [place] Hepatic cirrhosis, unspecified hepatic cirrhosis type, unspecified whether ascites present K74.60 [facility] [address] [place], [place] [id number] 10/25/2024 R Krishan [place] Hepatic cirrhosis, unspecified hepatic cirrhosis type, unspecified whether ascites present K74.60 [facility] [address] [place], [place] [id number] 11/08/2024 R Krishan [place] Screening for lung c ancer Z12.2 Assessments Encounter Date Diagnosis (ICD Code) Assessment Notes Treatment Notes Treatment Clinical Notes Section Notes 01/22/2024 Tobacco use disorder (ICD-10 - F17.200) 04/23/2024 Acute respiratory failure with hypoxia (ICD-10 - J96.01) The patient is felt to have the flu. Oxygen was placed on the patient and his oxygen saturation improved to 91-92% with 2L. He was given a neb which helped the wheezing. He will be admitted for further evaluation and treatment. 04/23/2024 Acute URI (ICD-10 - J06.9) 05/06/2024 Acute respiratory failure with hypoxia (ICD-10 - J96.01) Oxygen has been normal at home. 05/06/2024 Influenza A (ICD-10 - J10.1) Patient is much better. He still has some lingering fatigue and a cough. Discharge summary with available lab/diagnostic imaging results obtained and reviewed. Discharge medication list reconciled. Appropriate counseling provided. Moderate Complexity 07/08/2024 COPD (chronic obstructive pulmonary disease) (ICD-10 - J44.9) 07/08/2024 Hypertriglyceridemia (ICD-10 - E78.1) 07/30/2024 Hepatic cirrhosis, unspecified hepatic cirrhosis type, unspecified whether ascites present (ICD-10 - K74.60) 09/20/2024 Cellulitis of left l eg (ICD-10 - L03.116) Place a bandaid on area if it rubs against the leg. Keep it clean and dry. Take antibiotic for 7 days. If it does not get better or worse he may need a different antibiotic. 09/20/2024 BMI 24.0-24.9, adult (ICD-10 - Z68.24) 10/18/2024 Hepatic cirrhosis, unspecified hepatic cirrhosis type, unspecified whether ascites present (ICD-10 - K74.60) 10/25/2024 Hepatic cirrhosis, unspecified hepatic cirrhosis type, unspecified whether ascites present (ICD-10 - K74.60) 11/08/2024 Screening for lung cancer (ICD-10 - Z12.2) 01/22/2024 Leukocytosis (ICD-10 - D72.829) 01/22/2024 COPD (chronic obstructive pulmonary disease) (ICD-10 - J44.9) 07/08/2024 Polymyalgia rheumati ca (ICD-10 - M35.3) 05/06/2024 COPD (chronic obstructive pulmonary disease) (ICD-10 - J44.9) 07/08/2024 Thrombocytopenia (ICD-10 - D69.6) 07/08/2024 Cervicalgia (ICD-10 - M54.2) 07/08/2024 Tobacco use disorder (ICD-10 - F17.200) 07/08/2024 BMI 23.0-23.9, adult (ICD-10 - Z68.23) 05/06/2024 Other Plan Of Treatment Pending Test Test Name Order Date colonoscopy 10/30/2023 CT Scan : Chest, low dose 11/08/2024 Insurance Providers Payer Name Payer Address Payer Phone Subscriber Number Group Number Insured Name Patient Relationship to Insured Coverage Start Date Coverage End Date [employer] (MEDICAR E) [address] [address] [place] [address] [phone] [id number] JERE HARDEN Self - patient is the insured Medical (General) History Medical History History ICD Code Tobacco abuse Quit smoking 04/2024 hypertriiglyceridemia 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 East COPD Polymyalgia rheumatica - followed by Dr. Jacobs Elevated PSA - follows with urology Surgical History Surgery Date(Month/Year) skin cancer removed from face cancer removed from right eye finger removed from left hand Colonoscopy/ Karolyn/ multiple polyps 08/21/18 transjugular liver biopsy 2021 Colonoscopy 01/19/2024 Hospitalization History Reason Date(Month/Year) [facility] - flu syndrome 04/2024
--- OUTSIDE RECORDS SUMMARY | 2024-11-11 12:47 | XMS_ITS | Clinical Summary ---
Author Organization [facility] Address [address] [place] [address] Care Team Providers Care Pocket Marker Name Role Phone Manny Linder MD Primary Care Provider Allergies Active Allergy Reactions Criticality Noted Date Comments Acetaminophen Palpitations,Unknown - Low Severity Medium 10/24/2020 Morphine Unknown - Low Severi ty,Other (See Comments) Low 10/24/2020 Medications methylcellulose, Laxative, (Citrucel) 500 MG tablet tablet Take 1 tablet by mouth Daily. Active polyethylene glycol (MiraLax) 17 GM/SCOOP powder take (17G) by oral route every day mixed with 8 oz. water, juice, soda, coffee or tea Active atorvastatin (LIPITOR) 10 MG tablet Take 1 tablet by mouth Daily. Active furosemide (LASIX) 20 MG tablet Take 1 tablet by mouth Daily. Active nadolol (CORGARD) 20 MG tablet Take 1 tablet by mouth Daily. Active icosapent ethyl (Vascepa) 1 g capsule capsule Take 2 g by mouth 2 (Two) Times a Day With Meals. Active multivitamin (MULTI VITAMIN PO) Take 1 tablet by mouth Daily. Active Stiolto Respimat 2.5-2.5 MCG/ACT aerosol solution inhaler Inhale 2 puffs Daily. 04/01/2024 Active predniSONE (DELTASONE) 2.5 MG tabletIndication s:PMR (polymyalgia rheumatica),Curr ent use of steroid medication Take 1 tablet by mouth Daily. 30 tablet 2 08/11/2024 Active Active Problems Problem Noted Date Diagnosed Date Current use of steroid medication 08/08/2023 Assessment & Plan (06/21/2024 10:54 AM EDT): Prednisone 5 mg/day for PMR Lower today to 2.5 mg/day. Risks and benefits reviewed. Assessment & Plan (04/21/2024 11:50 AM EST): Prednisone 7.5 mg/day for PMR Lower today to 5 mg/day. Risks and benefits reviewed. Assessment & Plan (01/20/2024 11:15 AM EST): * Prednisone 10 mg PO once/day for joint pain/swelling - ? PMR Ideally he will taper off as his condition improves/stabilizes. Increase to 7.5 mg po daily. Assessment & Plan (11/20/2023 11:41 AM EDT): * Prednisone 7.5 mg PO once/day for joint pain/swelling - ? PMR Ideally he will taper off as his condition improves/stabilizes. Increase to 10mg po daily. Assessment & Plan (10/10/2023 8:52 PM EDT): * Prednisone 7.5 mg PO once/day for joint pain/swelling - ? PMR Ideally he will taper off as his condition improves/stabilizes. Lower today to 5 mg/day. Risk and benefits reviewed Assessment & Plan (08/08/2023 10:38 AM EDT): * Prednisone 7.5 mg PO once/day for joint pain/swelling - ? PMR Ideally he will taper off as his condition improves/stabilizes. Lower today to 5 mg/day. Risk and benefits reviewed PMR (polymyalgia rheumatica) 08/07/2023 Assessment & Plan (06/21/2024 10:54 AM EDT): * 10/15/22: CRP 1.48 (<0.50), ESR normal, RMSF (IgM and IgG) negative * 09/24/22: LARRY negative, CCP negative, RF negative, CRP 0.69 (<0.50), ESR 27 (<21), Lyme negative, IgM RMSF negative, IgG RMSF was positive *12/02/2022: CRP 33 (0-10) and ESR 32 (0-30). Autoimmune testing negative. Hepatitis and QTB negative. * Medications/treatments/interventions tried include: Tylenol, doxycycline, Medrol Dosepak, morphine (allergic/intolerant), prednisone Follow up in 2 months Lower steroids from 5 mg/day to 2.5 mg/day. Check labs We gave him a handout on arthritis to take home and review. He has had difficulty tapering the steroids. If he is unable to taper we will try adding either Actemra or Kevzara. Assessment & Plan (04/21/2024 11:50 AM EST): * 10/15/22: CRP 1.48 (<0.50), ESR normal, RMSF (IgM and IgG) negative * 09/24/22: LARRY negative, CCP negative, RF negative, CRP 0.69 (<0.50), ESR 27 (<21), Lyme negative, IgM RMSF negative, IgG RMSF was positive *12/02/2022: CRP 33 (0-10) and ESR 32 (0-30). Autoimmune testing negative. Hepatitis and QTB negative. * Medications/treatments/interventions tried include: Tylenol, doxycycline, Medrol Dosepak, morphine (allergic/intolerant), prednisone Follow up in 2 months Lower steroids from 7.5 mg/day to 5 mg/day. Check labs We gave him a handout on OA to take home and review. He has had difficulty tapering the steroids. If he is unable to taper we will try adding either Actemra or Kevzara. Assessment & Plan (01/20/2024 11:27 AM EST): * 10/15/22: CRP 1.48 (<0.50), ESR normal, RMSF (IgM and IgG) negative * 09/24/22: LARRY negative, CCP negative, RF negative, CRP 0.69 (<0.50), ESR 27 (<21), Lyme negative, IgM RMSF negative, IgG RMSF was positive *12/02/2022: CRP 33 (0-10) and ESR 32 (0-30). Autoimmune testing negative. Hepatitis and QTB negative. * Medications/treatments/interventions tried include: Tylenol, doxycycline, Medrol Dosepak, morphine (allergic/intolerant), prednisone 1. Still with a lot of shoulder and neck pain. 2. Check labs 3. Follow up in 2 months 4. No GCA symptoms 5. Labs reviewed in the medical center from September 2023 that showed elevation of inflammation markers. 6. In the late spring early summer 2023 he will let us know that he has been telling us he was feeling better but actually had been feeling worse. He was also noted to have mildly elevated inflammation markers. We increased his prednisone at that time instead of decreasing. And then at last visit he reported not feeling well so we can try to increase her prednisone to 10 mg. Today he reports feeling better. 7. Decrease prednisone to 7.5 mg daily until next visit. 8. No GCA symptoms. 9. We discussed that his pain is likely due to OA. Assessment & Plan (11/20/2023 12:39 PM EDT): * 10/15/22: CRP 1.48 (<0.50), ESR normal, RMSF (IgM and IgG) negative * 09/24/22: LARRY negative, CCP negative, RF negative, CRP 0.69 (<0.50), ESR 27 (<21), Lyme negative, IgM RMSF negative, IgG RMSF was positive *12/02/2022: CRP 33 (0-10) and ESR 32 (0-30). Autoimmune testing negative. Hepatitis and QTB negative. * Medications/treatments/interventions tried include: Tylenol, doxycycline, Medrol Dosepak, morphine (allergic/intolerant), prednisone 1. Still with a lot of shoulder and neck pain. 2. Check labs 3. Follow up in 2 months 4. No GCA symptoms 5. Labs reviewed in the medical center from September 2023 that showed elevation of inflammation markers. 6. Last visit he told us that he actually had felt worse for the last 2 visits prior to that last visit he told us that he actually had felt worse for the last 2 visits prior to that that he did not let us know. He reports not feeling any better today.. He did not let us know. He reports not feeling any better today. 7. He can not tell difference with 7.5mg of prednisone. He still has neck and shoulder pain. 8. He does have locking of his jaws at time. 9. Increase to 10mg of prednisone and we will check labs. 10. We did discuss that some of his symptoms were likely osteoarthritis in nature. Assessment & Plan (10/13/2023 11:14 AM EDT): * 10/15/22: CRP 1.48 (<0.50), ESR normal, RMSF (IgM and IgG) negative * 09/24/22: LARRY negative, CCP negative, RF negative, CRP 0.69 (<0.50), ESR 27 (<21), Lyme negative, IgM RMSF negative, IgG RMSF was positive *12/02/2022: CRP 33 (0-10) and ESR 32 (0-30). Autoimmune testing negative. Hepatitis and QTB negative. * Medications/treatments/interventions tried include: Tylenol, doxycycline, Medrol Dosepak, morphine (allergic/intolerant), prednisone 1. Increase prednisone back to 7.5mg po daily from 5mg daily. They will call if this does not help and we may need to increase to 5mg daily. 2. Check labs 3. Follow up in 2 months 4. No GCA symptoms 5. Labs reviewed in the medical center from July 2023 that showed elevation of inflammation markers. 6. He has felt worse for the last two visits but has not told us. 7. He has had more stiffness and pain in neck. 8. He does have locking of his jaws at time. Assessment & Plan (08/08/2023 10:38 AM EDT): * 10/15/22: CRP 1.48 (<0.50), ESR normal, RMSF (IgM and IgG) negative * 09/24/22: LARRY negative, CCP negative, RF negative, CRP 0.69 (<0.50), ESR 27 (<21), Lyme negative, IgM RMSF negative, IgG RMSF was positive *12/02/2022: CRP 33 (0-10) and ESR 32 (0-30). Autoimmune testing negative. Hepatitis and QTB negative. * Medications/treatments/interventions tried include: Tylenol, doxycycline, Medrol Dosepak, morphine (allergic/intolerant), prednisone 1. We currently have him taking 7.5 mg of prednisone daily. Lower to 5 mg/day. Risks and benefits reviewed 2. Check labs 3. Follow up in 2 months 4. No GCA symptoms 5. We gave him a handout on PMR to take home and review Osteoarthritis 08/07/2023 Assessment & Plan (06/21/2024 11:00 AM EDT): 1. Tylenol PRN is ok as directed 2. He is allergic/intolerant of morphine Rafa Bey reports a pain score of 5. Given his pain assessment as noted, treatment options were discussed and the following options were decided upon as a follow-up plan to address the patient's pain: continuation of current treatment plan for pain. Assessment & Plan (04/21/2024 11:50 AM EST): 1. Tylenol PRN is ok as directed 2. He is allergic/intolerant of morphine Assessment & Plan (01/20/2024 11:28 AM EST): 1. Tylenol PRN is ok as directed 2. He is allergic/intolerant of morphine 3. He continues with olecranon bursitis. Swelling is somewhat improved. 4. Ice the olecranon for 20 minute periods several times a day. Assessment & Plan (11/19/2023 8:51 AM EDT): 1. Tylenol PRN is ok as directed 2. He is allergic/intolerant of morphine 3. He has developed right olecranon bursitis. 4. Ice the olecranon for 20 minute periods several times a day. 5. Handout on bursitis given to patient to take home and review. Assessment & Plan (10/13/2023 11:14 AM EDT): 1. Tylenol PRN is ok as directed 2. He is allergic/intolerant of morphine 3. He has developed right olecranon bursitis. 4. Ice the olecranon for 20 minute periods several times a day. 5. Handout on bursitis given to patient to take home and review. Assessment & Plan (08/08/2023 10:38 AM EDT): 1. Tylenol PRN is ok as directed 2. He is allergic/intolerant of morphine Family History Medical History Relation Name Comments Heart attack Brother Heart attack Father Heart failure Mother Diabetes Sister Gout Son Relation Name Status Comments Brother Father Mother Sister Son Social History Tobacco Use Types Packs/Day Years Used Date Smoking Tobacco: Former Cigarettes Q uit: 04/23/2024 Passive Smoke Exposure: Current Smokeless Tobacco: Never Tobacco Cessation:Counseling Given: Not Answered Comments:Heavy tobacco smoker. Alcohol Use Standard Drinks/Week Comments Never 0 (1 standard drink = 0.6 oz pur e alcohol) Sex and Gender Information Value Date Recorded Sex Assigned at Not on file Legal Sex Male 10:30 AM EDT Gender Identity Not on file Sexual Orientation Not on file Last Filed Vital Signs Vital Sign Reading Time Taken Comments Blood Pressure 122/90 06/21/2024 10:14 AM EDT Pulse 60 06/21/2024 10:14 AM EDT Temperature 36.1 C (96.9 F) 06/21/2024 10:14 AM EDT Respiratory Rate - - Oxygen Saturation - - Inhaled Oxygen Concentration - - Weight 77.1 kg (170 lb) 06/21/2024 10:14 AM EDT Height 177.8 cm (5' 10 ) 06/21/2024 10:14 AM EDT Body Mass Index 24.39 06/21/2024 10:14 AM EDT Plan of Treatment Upcoming Encounters Date Type Department Care Team (Late st Contact Info) Description 12/08/2024 11:15 AM EDT Office Visit [facility] [address] [address] Beny Jacobs DO [address] [address] Health Maintenance Due Date Last Done Comments ZOSTER VACCINE (1 of 2) 07/27/1997 RSV Vaccine - Adults (1 - 1- dose 75+ series) 07/27/2022 ANNUAL WELLNESS VISIT 08/07/2023 HEPATITIS C SCREENING 08/07/2023 COVID-19 Vaccine (2023-2 5 season) 2023 03/29/2021, 06/21/2020 INFLUENZA VACCINE 12/15/2024 12/22/2023, , 01/10/2022, Additional history exists TDAP/TD VACCINES (2 - Td or Tdap) 06/26/2028 019 Pneumococcal Vaccine 50+ Completed 07/18/2021, 01/16 Insurance [facility] MEDIC[facility] PPO Care Teams Pocket Marker Relationship Specialty Start Date End Date Manny Linder MD [facility] [address] [place] [id number] PCP - General Family Medicine 06/21/24
--- OUTSIDE RECORDS SUMMARY | 2024-11-11 12:47 | XMS_ITS | Encounter Summary ---
Author Organization [facility] Address [address] [place] [id number] Care Team Providers Care Job Checker Name Role Phone Manny Linder MD Primary Care Provider Encounter Details Date Type Department Care Team (Late Contact Info) Description 06/22/2024 Results Follow-Up [facility] RHEUMATOLOGY [address] [phone] Beny Jacobs DO [address] [place] [address] [id number] Social History Tobacco Use Types Packs/Day Years Used Date Smoking Tobacco: Former Cigarettes Q uit: 04/23/2024 Passive Smoke Exposure: Current Smokeless Tobacco: Never Comments:Heavy tobacco smoke r. Alcohol Use Standard Drinks/Week Comments Never 0 (1 standard drink = 0.6 oz pur e alcohol) Sex and Gender Information Value Date Recorded Sex Assigned at Not on file Legal Sex Male 10:30 AM EDT Gender Identity Not on file Sexual Orientation Not on file documented as of this encounter Plan of Treatment Upcoming Encounters Date Type Department Care Team (Late Contact Info) Description 12/08/2024 11:15 AM EDT Office Visit [facility] RHEUMATOLOGY [address] [phone] Beny Jacobs DO [address] [place] [address] [phone] documented as of this encounter Visit Diagnoses Not on filedocumented in this encounter Care Teams Job Checker Relationship Specialty Start Date End Date Manny Linder MD [address] [place] [facility] [address] [place] [address] PCP - General Family Medicine 06/21/24 documented as of this encounter
--- OUTSIDE RECORDS SUMMARY | 2024-11-11 12:47 | XMS_ITS | Clinical Summary ---
Author Organization [facility] Address [address] [place] [address] Care Team Providers Care Honeycomb Blanket Maker Name Role Phone Kathy Kennedy Primary Care Provider [phone] Allergies Active Allergy Reactions Criticality Noted Date Comments Morphine Other - please docum ent in the comment field Low 03/28/2021 Acetaminophen Palpitations Low 03/28/2021 Medications atorvastatin (Lipitor) 10 MG tablet Take 10 mg by mouth 1 (one) time each day. Active loratadine (Claritin) 10 MG tablet Take 10 mg by mouth 1 (one) time each day. Active Multiple Vitamin (multivitamin) tablet Take 1 tablet by mouth 1 (one) time each day. Active simethicone (Mylicon,Gas-X) 125 MG capsule Take 125 mg by mouth every 6 (six) hours if needed. Active niacin 500 MG tablet Take 500 mg by mouth 4 (four) times a day. Active ibuprofen 200 MG tablet Take 200 mg by mouth if needed for mild pain. Active furosemide (Lasix) 20 MG tablet Take 20 mg by mouth 1 (one) time each day. Active spironolactone (Aldactone) 50 MG tablet Take 50 mg by mouth 1 (one) time each day. Active Active Problems Problem Noted Date Diagnosed Date Elevated liver enzymes 03/27/2021 Ascites 03/27/2021 Social History Tobacco Use Types Packs/Day Years Used Date Smoking Tobacco: Former Smokeless Tobacco: Never Sex and Gender Information Value Date Recorded Sex Assigned at Not on file Legal Sex Male 7:35 PM EDT Gender Identity Not on file Sexual Orientation Not on file Last Filed Vital Signs Vital Sign Reading Time Taken Comments Blood Pressure 122/77 05/18/2021 9:00 AM EST Pulse 89 05/18/2021 9:00 AM EST Temperature 36.8 C (98.3 F) 05/18/2021 8:38 AM EST Respiratory Rate 14 05/18/2021 9:00 AM EST Oxygen Saturation 93% 05/18/2021 9:00 AM EST Inhaled Oxygen Concentration - - Weight 69.6 kg (153 lb 7 oz) 03/28/2021 8:13 AM EST Height 177.8 cm (5' 10 ) 03/28/2021 8:13 AM EST Body Mass Index 22.02 03/28/2021 8:13 AM EST Plan of Treatment Health Maintenance Due Date Last Done Comments [facility]-Depression Screening 1945 [facility]-Hepatitis C Screening 1945 [facility]-Medicare Annual Wellness (AWV) 1945 [facility]-Infant/Child/Adol SDOH Screenings 1945 [facility]- SDOH Screenings 07/27/1965 [facility]-Adult SDOH Screenings 07/27/1965 [facility]-Zoster Vaccines (1 of 2) 07/27/1997 [facility]-Pneumococcal Vaccine: 50+ Years (2 of 2 - PCV) 02/12/2017 02/13/2016 [facility]-RSV Vaccine: 60+ Years or (1 - 1-dose 75+ series) 07/27/2022 [id number] Vaccine (2 - season) 2023 06/21/2020 [facility]-Influenza Vaccine (#1) 11/15/202412/15, 01/25/2020, 01/07/2017, Additional history exists [facility]-DTaP,Tdap,and Td Vaccines (2 - Td or Tdap) 06/26/2028 06/26/2018 HPV Vaccines Aged Out No longer eligi ble based on patient's age to complete this topic [facility]-HIB Vaccines Aged Out No longer e ligible based on patient's age to complete this topic [facility]-Hepatitis A Vaccines Aged Out No longer eligible based on patient's age to complete this topic [facility]-IPV Vaccines Aged Out No longer e ligible based on patient's age to complete this topic [facility]-Rotavirus Vaccines Aged Out No lo nger eligible based on patient's age to complete this topic Insurance [facility] MEDICARE Care Teams Honeycomb Blanket Maker Relationship Specialty Start Date End Date Kathy Kennedy PA [facility] [address] [place] [id number] PCP - General 03/28/21
--- NOTE | 2024-11-11 12:48 | CT_ITS ---
FINAL REPORT TECHNIQUE: Thin section axial images were obtained through the lungs using a low-dose technique per lung cancer screening protocol. Reconstruction images were obtained using the axial data. Exam was performed using dose reduction technique. CLINICAL HISTORY: SCREENING former smoker, quit 1 year ago. smoked 2 ppd x 70 years COMPARISON: 11/11/2023 FINDINGS: CTDLvol: 2.90 DLP: 107.33 Former smoker 140 pack year history Lungs: There is biapical pleural scarring which is unchanged from the prior exam. There is evidence of prior granulomatous disease. Left lower lobe atelectasis is unchanged. There are less than 4 mm bilateral upper lobe pulmonary nodules which are unchanged from the prior exam. No new nodule is identified. There is no consolidation. Lymph nodes: No thoracic lymphadenopathy. Mediastinum: Heart size is normal. Pleura/pericardium: No pleural or pericardial effusion. Other: Limited images of the upper abdomen demonstrate bilateral nonobstructing renal stones. IMPRESSION: Stable pulmonary nodules. Lung RADS: 2 Recommendation: 12-month follow-up low-dose CT. Bilateral nonobstructing renal stones. Lung RADS: S Reviewed, Interpreted and Dictated by Brittney Warner MD Transcribed by Liv Lamb Authenticated and [facility]
== END 2024-11-11 23:59 | disposition home or self-care (01) ==
LOC: RAD 12:44
PROVIDERS: PCP Family Medicine; Visit Provider Family Medicine
DX: R91.8 Other nonspecific abnormal finding of lung field (principal); Z12.2 Encounter for screening for malignant neoplasm of respiratory organs; Z87.891 Personal history of nicotine dependence
CPT/HCPCS: 71271

== ENCOUNTER 2025-02-09 12:31 | Outpatient (CLI) | payer MEDICARE, SELFPAY ==
--- OUTSIDE RECORDS SUMMARY | 2025-01-18 02:21 | XMS_ITS | Continuity of Care Document ---
Author Organization [facility] Phone Care Team Providers Care Sealing And Canceling Machine Operator Name Role Phone HUI BANG Primary Care ABELARDO CASTILLO Admitting HUI BANG Unavailable [phone] ABELARDO CASTILLO Primary Attending ALLERGIES AND ADVERSE REACTIONS ALLERGIES AND ADVERSE REACTIONS Code System Allergy Substance Adverse Reaction Date Reaction (Severity) Comment Status Reported By Updated By 161 RXNorm TYLENOL Adverse reaction to substance (Moderate) elevated heart rate active Patient [id number] on August 15, 2021 11:18:37 AM [facility] 7052 RXNorm MORPHINE Adverse reaction to substance (Moderate) Gets hot and thirsty active [id number] on August 15, 2021 11:18:37 AM [facility] FAMILY HISTORY RELATION: Father Status: Cause of : Unknown Age at : Unknown SNOMED-CT Diagnosis Age At Onset [id number] Essential hypertension [id number] Coronary arteriosclerosis RELATION: Mother Status: Cause of : Unknown Age at : Unknown SNOMED-CT Diagnosis Age At Onset [id number] Essential hypertension [id number] Coronary arteriosclerosis RESULTS Patient: FINA OQUENDO Date of : 1945 7 LABORATORY RESULTS Information is not available LABORATORY NARRATIVE RESULTS Information is not available RADIOLOGY RESULTS ORDER 100: LIVER ULTRASOUND (LOINC: [id number]) ORDER DATE: January 14, 2025 12:18:00 PM [facility] PERFORMING LAB: [address] [id number] Final Result Date: December 172024 3:25:40 PM [facility] [address] [place] [address] Name: JERE HARDEN Exam Date: 01/14/2025 : 1945 Age 79 years Gender: M Physician: ABELARDO CASTILLO Facility: [facility] Facility HSV: Outpatient Exam: LIVER ULTRASOUND PROCEDURE: US LIVER, 01/14/2025 10:13 AM CDT CLINICAL INDICATION: HEPATIC FIBROSIS, UNSPECIFIED. COMPARISON: July 15, 2024 FINDINGS: Evaluation is significantly limited due to overlying bowel gas and patient body habitus. Liver is poorly visualized, measures up to 13.2 cm coarsened echotexture. Hepatopedal portal flow. Poorly visualized gallbladder, wall measures up to 2 mm common bile duct measures up to 3 mm. Right kidney measures up to 9 cm. No hydronephrosis. IMPRESSION: Significantly limited evaluation due to overlying bowel gas and patient body habitus. Coarsened hepatic echotexture, nonspecific, correlate with liver function tests for hepatocellular disease. Consider correlation with elastography for further assessment as clinically indicated. Electronically signed by: Irving Camarillo MD 01/14/2025 11:25 AM EDT [employer] Dictated By: Irving Camarillo Transcribed By: Transcribed On: 01/14/2025 11:25 AM Electronically signed by: Irving Camarillo 01/14/2025 Thank you for referring JERE HARDEN to [facility]. Legally authenticated by SOBEIDA SANTANA 2025-01-14 11:25:40 PATHOLOGY NARRATIVE RESULTS Information is not available MICROBIOLOGY RESULTS No Micro Labs/Results Exist for Patient BLOOD ADMIN RESULTS Information is not available MEDICATIONS HOME MEDICATIONS Status RXNORM NDC Medication Dose Route Frequency Dates Comments Reported By Updated By Drug Treatment Unknown DISCHARGE MEDICATIONS Status RXNORM NDC Medication Dose Route Frequency Dates Dis pense Data Comments Physician Updated By No Discharge Medication Info rmation Available INPATIENT MEDICATIONS Status RXNORM NDC Medication Dose Route Frequency Rat e Quantity Dates Indication Dispense Data Comments Physician Updated By No Inpatient Medication Info rmation Available SOCIAL HISTORY SOCIAL HISTORY - Smoking Status SNOMED-CT Social History Element Description Effective Dates Offered Cessation Comment Updated By [id number] Historical Tobacco smoking status Current Every Day Smoker Smokes 1.5 ppd for many many years [id number] on August 14, 2021 1:52:36 PM [facility] SOCIAL HISTORY - Gender Sex: Male SOCIAL HISTORY - Status : status i nformation is not available Intention in Next Year: intention information is not available SOCIAL HISTORY - Assessments Code System Description Status Date Value of Assessment Updated By Comment Assessment Information is no t available SOCIAL HISTORY - [place] Affiliation [place] information is not av ailable SOCIAL HISTORY - Legal Sex Legal Sex information is not available SOCIAL HISTORY - Sexual Behavior Sexual Orientation Gender Identity SNOMED-CT Description SNO MED -CT Description Activity Level No of Partners Partner Type UpdatedBy Information is not available SOCIAL HISTORY - Occupation Occupation information is no t available HEALTH CONCERNS Problems Concern Status Health Concern problem infor mation not available. Smoking Status Status Years Used Consumed packs p er day Health Concern smoking histo ry information not available. Family History Concern Status Health Concern family histor y information not available. ENCOUNTERS ENCOUNTER INFORMATION Reason for Visit ULS Admission January 14, 2025 12:10:[address] [id number] Discharge January 14, 2025 12:10:00 PM [facility] DISCHARGED TO HOME OR SELF CARE ENCOUNTER DIAGNOSES Notes information is not lucille ilable. Code System Diagnosis Onset Date Diagnosis information is not available. ABSTRACT DIAGNOSES Code System Diagnosis Updated By Abatement Date K74.00 ICD10 HEPATIC FIBROSIS, UNSPECIFIE D [id number] on January 07, 2025 2:16:46 PM [facility] K74.00 ICD10 HEPATIC FIBROSIS, UNSPECIFIE D [id number] on January 18, 2025 7:17:23 AM [facility] CARE TEAM Care Sealing And Canceling Machine Operator Role HUI BANG Primary Care ABELARDO CASTILLO Admitting HUI BANG Referring ABELARDO CASTILLO Primary Attending CARE TEAM CARE lap machine tender Role on Team Location Telecom Status Start Date End Prem e Updated By MERRITT KEATING Referring normal January 14, 2025 4:00:00 AM [facility] January 14, 2025 12:10:00 PM [facility] [id number] on January 14, 2025 12:12:19 PM [facility] MERRITT KEATING PCP normal January 07, 2025 2:16:46 PM [facility] January 14, 2025 12:10:00 PM [facility] [id number] on January 14, 2025 12:12:19 PM [place] JONATHAN ZHOU M PA Referring normal January 07, 2025 2:16:46 PM UTC January 14, 2025 4:00:00 AM [place] [id number] on January 14, 2025 12:12:19 PM [facility] JONATHAN Palomo PA Attending normal January 07, 2025 2:16:46 PM [place] January 14, 2025 12:10:00 PM [facility] [id number] on January 14, 2025 12:12:19 PM [facility] JONATHAN Palomo PA Admitting normal January 07, 2025 2:16:46 PM [place] January 14, 2025 12:10:00 PM [place] [id number] on January 14, 2025 12:12:19 PM HIC
--- OUTSIDE RECORDS SUMMARY | 2025-02-09 12:34 | XMS_ITS | Encounter Summary ---
Author Organization [facility] Address [address] [place] [address] Care Team Providers Care Storage Management Architect Name Role Phone Manny Linder MD Primary Care Provider Encounter Details Date Type Department Care Team (Late Contact Info) Description 06/22/2024 Results Follow-Up [facility] RHE[facility]OLOG[facility] [address] [address] Beny Jacobs DO [address] [id number] Social History Tobacco Use Types Packs/Day Years [...] Care Team (Late st Contact Info) Description 02/14/2025 1:15 PM EST Office Visit [facility] RHE[facility] [address] [address] Meme Mojica APRN [address] [id number] 05/30/2025 11:45 AM EDT Office Visit [facility] RHEUMATOLOGY [address] [address] Beny Jacobs DO [address] [facility] [address] [place] [address] documented as of this encounter Visit Diagnoses Not on filedocumented in this encounter Care Teams Storage Management Architect Relationship Specialty Start Date End Date Manny Linder MD [facility] [address] [facility] [address] [place], [place] [id number] PCP - General Family Medicine 06/21/24 documented as of this encounter
--- OUTSIDE RECORDS SUMMARY | 2025-02-09 12:34 | XMS_ITS | Clinical Summary ---
Author Organization [facility] Address [address] [place] [address] Care Team Providers Care Vp Corporate Partnerships Name Role Phone Manny Linder MD Primary [...] aerosol solution inhaler Inhale 2 puffs Daily. 5 Active predniSONE (DELTASONE) 1 MG tabletIndications:P MR (polymyalgia rheumatica),Current use of steroid medication Take 1 tablet by mouth Daily. 30 tablet 2 5 Active traMADol (ULTRAM) 50 MG tabletIndications:P MR (polymyalgia rheumatica),Current use of steroid medication,Primary osteoarthritis involving multiple joints,Encounter for therapeutic drug monitoring Take 1 tablet by mouth Every 6 (Six) Hours As Needed for Moderate Pain. 120 tablet 4 Active Active Problems Problem Noted Date Diagnosed Date Current use of steroid medication 08/08/2023 Assessment & Plan (12/08/2024 11:17 AM EDT): Prednisone 2.5 mg/day for PMR Lower today to 1 mg/day. Risks and benefits reviewed. Assessment & Plan (06/21/2024 10:54 AM EDT): [...] PMR (polymyalgia rheumatica) 08/07/2023 Assessment & Plan (12/08/2024 11:28 AM EDT): * 10/15/22: CRP 1.48 (<0.50), [...] up in 2 months Lower steroids from 2.5 mg/day to 1 mg/day. Check labs 06/21/24 ESR and CRP were normal. This indicates PMR Is in remission. We gave him a handout on arthritis to take home and review. He has had difficulty tapering the steroids. Like today for instance he says his condition is getting worse. I think he likely has pain due to degenerative arthritis as well. See below. If he is unable to taper we will try adding either Actemra or Kevzara. Assessment & Plan (06/21/2024 10:54 AM EDT): [...] No GCA symptoms 5. Labs reviewed in [facility] from September 2023 that showed elevation of [...] No GCA symptoms 5. Labs reviewed in [facility] from September 2023 that showed elevation of [...] No GCA symptoms 5. Labs reviewed in [facility] from July 2023 that showed elevation of [...] and review Osteoarthritis 08/07/2023 Assessment & Plan (12/08/2024 11:28 AM EDT): 1. He reports he is allergic/intolerant of Tylenol 2. He is allergic/intolerant of morphine 3. 06/21/24 his creatinine was elevated. I would therefore try and limit oral NSAID usage 4. Today his neck hurts. No injury. Will x-ray 5. Will start Tramadol 50 mg PO every 6 hours PRN for pain Risks and benefits reviewed. Assessment & Plan (06/21/2024 11:00 AM EDT): [...] directed 2. He is allergic/intolerant of morphine Encounters Date Type Department Care Team Description 12/09/2024 Results Follow-Up [facility] RHEUM[facility]OLOGY [address] [address] Beny Jacobs DO 12/08/2024 11:45 AM EDT Ancillary Procedure [facility] R[facility] [address] [phone] PMR (polymyalgia rheumatica); Current use of steroid medication; Primary osteoarthritis involving multiple joints 12/08/2024 11:15 AM EDT Office Visit [facility] [address] [address] Beny Jacobs DO PMR (polymyalgia rheumatica) (Primary Dx); Current use of steroid medication; Primary osteoarthritis involving multiple joints; Encounter for therapeutic drug monitoring 12/08/2024 Travel from Last 3 Months Family History Medical History Relation Name Comments [...] Sign Reading Time Taken Comments Blood Pressure 140/78 12/08/2024 11:11 AM EDT Pulse 65 12/08/2024 11:11 AM EDT Temperature 36 C (96.8 F) 12/08/2024 11:11 AM EDT Respiratory Rate - - Oxygen Saturation - - Inhaled Oxygen Concentration - - Weight 79.3 kg (174 lb 12.8 oz) 025 11:11 AM EDT Height 177.8 cm (5' 10 ) 12/08/2024 11: 11 AM EDT Body Mass Index 25.08 12/08/2024 11:11 AM EDT Plan of Treatment Upcoming Encounters Date Type Department Care Team (Late st Contact Info) Description 02/14/2025 1:15 PM EST Office Visit [facility] R[facility] [address] [phone] Meme Mojica APRN [address] [id number] 05/30/2025 11:45 AM EDT Office Visit [facility] R[facility] [address] [phone] Beny Jacobs DO [address] [address] Health Maintenance Due Date Last Done Comments ZOSTER VACCINE (1 of 2) 07/27/1997 RSV Vaccine - Adults (1 - 1- dose 75+ series) 07/27/2022 ANNUAL WELLNESS VISIT 08/07/2023 HEPATITIS C SCREENING 08/07/2023 INFLUENZA VACCINE 10/15/2024 12/22/2023, , 01/10/2022, Additional history exists COVID-19 Vaccine (3 - 2024-2 6 season) 2024 03/29/2021, 06/21/2020 TDAP/TD VACCINES (2 - Td or Tdap) 06/26/2028 019 Pneumococcal Vaccine 50+ Completed 07/18/2021, 01/16 Procedures Procedure Name Priority Date/Time Associated Diagnosis Comments CBC AND DIFFERENTIAL Routine 12/08/2024 12:26 PM EDT URINE DRUG SCREEN Routine 12/08/2024 12: 26 PM EDT SEDIMENTATION RATE Routine 12/08/2024 12 :26 PM EDT PMR (polymyalgia rheumatica) Current use of steroid medication Primary osteoarthritis involving multiple joints C-REACTIVE PROTEIN Routine 12/08/2024 12 :26 PM EDT PMR (polymyalgia rheumatica) Current use of steroid medication Primary osteoarthritis involving multiple joints COMPREHENSIVE METABOLIC PANEL Routine 12/08/2024 12:26 PM EDT PMR (polymyalgia rheumatica) Current use of steroid medication Primary osteoarthritis involving multiple joints XR SPINE CERVICAL 3 VW Routine 12/08/2024 11:38 AM EDT PMR (polymyalgia rheumatica) Current use of steroid medication Primary osteoarthritis involving multiple joints from Last 3 Months Results * Urine Drug Screen - (12/08/2024 12:26 PM EDT) Amphetamine, Urine Qual Negative Cutoff=10 00 ng/mL [facility] Barbiturates Screen, Urine Negative Cutoff=20 0 ng/mL [facility] Benzodiazepine Screen, Urine Negative Cutoff=20 0 ng/mL [facility] THC Screen, Urine Negative Cutoff=20 ng/mL [facility] Cocaine Screen, Urine Negative Cutoff=30 0 ng/mL [facility] Opiate Screen, Urine Negative Cutoff=30 0 ng/mL [facility] Comment:Opiate test includes Codeine, Morphine, Hydromorphone, Hydrocodone. Oxycodone/Oxymorph one, Urine Negative Cutoff=10 0 ng/mL [facility] Comment:Test includes Oxycod one and Oxymorphone Phencyclidine (PCP), Urine Negative Cutoff=25 ng/mL [facility] Methadone Screen, Urine Negative Cutoff=30 0 ng/mL [facility] Propoxyphene Screen Negative Cutoff=30 0 ng/mL [facility] Creatinine, Urine 43.5 20.0 - 300.0 mg/dL [facility] pH, UA 5.6 4.5 - 8.9 [facility] Please note Comment [facility] Comment: This assay provides a preliminary unconfirmed analytical test result that may be suitable for clinical management of patients in certain situations. Drug-test results should be interpreted in the context of clinical information. Patient metabolic variables, specific drug chemistry, and specimen characteristics can affect test outcome. Technical consultation is available if a test result is inconsistent with an expected outcome. Email: [email or web address] 12/08/2024 12:2 6 PM EDT 12/08/2024 Narrative [facility] ([facility]) - 12/09/2024 3:07 PM EDT Performed at: 01 - [place] [id number] [place], [place] [id number] Specialist Physician: Rosalie Villareal PhD, Phone: [phone] Patient Fasting: N [facility] URINE ORDERABLES Final Result Performing Organization Address [facility] de Phone Number [facility] (AMBULATORY) [address] [place] [address], [facility] [address] [place] [address], * (ABNORMAL) Sedimentation Rate (12/08/2024 12:26 PM EDT) Pathologist [facility] Sed Rate 32(H) 0 - 20 mm/hr [facility] Blood 12/08/2024 12:2 6 PM EDT 12/08/2024 Narrative [facility] (AMBULATORY) - 12/09/2024 3:07 PM EDT Performed at: [address] [place] [id number] Specialist Physician: Cristino Zuniga MD, Phone: [phone] Patient Fasting: N [facility] LAB BLOOD ORDERABLES F inal Result Performing Organization Address [facility] Co de Phone Number [facility] (AMBULATORY) [address] [place] [address], [place] [phone] [facility] [address] [place] [address], * (ABNORMAL) CBC & Differential (12/08/2024 12:26 PM EDT) Pathologist [facility] WBC 7.48 3.40 - 10.80 10*3/mm3 [facility] RBC 5.67 4.14 - 5.80 10*6/mm3 [facility] Hemoglobin 15.0 13.0 - 17.7 g/dL [facility] Hematocrit 46.5 37.5 - 51.0 % [facility] MCV 82.0 79.0 - 97.0 fL [facility] MCH 26.5(L) 26.6 - 33.0 pg [facility] MCHC 32.3 31.5 - 35.7 g/dL [facility] RDW 14.2 12.3 - 15.4 % [facility] Platelets 293 140 - 450 10*3/mm3 [facility] Neutrophil Rel % 63.5 42.7 - 76.0 % [facility] Lymphocyte Rel % 21.8 19.6 - 45.3 % [facility] Monocyte Rel % 9.6 5.0 - 12.0 % [facility] Eosinophil Rel % 3.2 0.3 - 6.2 % [facility] Basophil Rel % 1.5 0.0 - 1.5 % [facility] Neutrophils Absolute 4.75 1.70 - 7.00 10*3/mm3 [facility] Lymphocytes Absolute 1.63 0.70 - 3.10 10*3/mm3 [facility] Monocytes Absolute 0.72 0.10 - 0.90 10*3/mm3 [facility] Eosinophils Absolute 0.24 0.00 - 0.40 10*3/mm3 [facility] Basophils Absolute 0.11 0.00 - 0.20 10*3/mm3 [facility] Immature Granulocyte Rel % 0.4 0.0 - 0.5 % [facility] Immature Grans Absolute 0.03 0.00 - 0.05 10*3/mm3 [facility] nRBC 0.0 0.0 - 0.2 /100 WBC [facility] 12/08/2024 12:2 6 PM EDT 12/08/2024 Narrative [facility] ([facility]) - 12/09/2024 3:07 PM EDT Performed at: 02 - [address] [id number] Specialist Physician: Cristino Zuniga MD, Phone: [phone] Patient Fasting: N Beny Jacobs DO LAB BLOOD ORDERABLES F inal Result [facility] ([facility]UL[facility]) [address] [place] [address], [place] [phone] [facility] [address] [place] [address], [place] [phone] * (ABNORMAL) C-reactive Protein (12/08/2024 12:26 PM EDT) Pathologist [facility] C-Reactive Protein 2.11(H) 0.00 - 0.50 mg/dL [facility] Blood 12/08/2024 12:2 6 PM EDT 12/08/2024 Narrative [facility] (AMBULATORY) - 12/09/2024 3:07 PM EDT Performed at: [address] [place] [id number] Specialist Physician: Cristino Zuniga MD, Phone: [phone] Patient Fasting: N Beny Jacobs LAB BLOOD ORDERABLES F inal Result [facility] ([facility]) [address] [place] [address], [place] [phone] [facility] [address] [place] [address], [place] [phone] * Comprehensive Metabolic Panel (12/08/2024 12:26 PM EDT) [facility] Glucose 84 65 - 99 mg/dL [facility] BUN 12.0 8.0 - 23.0 mg/dL [facility] Creatinine 1.19 0.76 - 1.27 mg/dL [facility] EGFR Result 62.9 >60.0 mL/min/1.7 3 [facility] Comment: GFR Categories in Chronic Kidney Disease (CKD) GFR Category GFR (mL/min/1.73) Interpretation G1 90 or greater Normal or high (1) G2 60-89 Mild decrease (1) G3a 45-59 Mild to moderate decrease G3b 30-44 Moderate to severe decrease G4 15-29 Severe decrease G5 14 or less Kidney failure (1)In the absence of evidence of kidney disease, neither GFR category G1 or G2 fulfill the criteria for CKD. eGFR calculation 2020 CKD-EPI creatinine equation, which does not include race as a factor BUN/Creatinine Ratio 10.1 7.0 - 25.0 [facility] Sodium 141 136 - 145 mmol/L [facility] Potassium 4.6 3.5 - 5.2 mmol/L [facility] Chloride 102 98 - 107 mmol/L [facility] Total CO2 25.2 22.0 - 29.0 mmol/L [facility] Calcium 9.9 8.6 - 10.5 mg/dL [facility] Total Protein 7.6 6.0 - 8.5 g/dL [facility] Albumin 4.4 3.5 - 5.2 g/dL [facility] Globulin 3.2 gm/dL [facility] A/G Ratio 1.4 g/dL [facility] Total Bilirubin 0.5 0.0 - 1.2 mg/dL [facility] Alkaline Phosphatase 107 39 - 117 U/L [facility] AST (SGOT) 24 1 - 40 U/L [facility] ALT (SGPT) 17 1 - 41 U/L [facility] Blood 12/08/2024 12:2 6 PM EDT 12/08/2024 Narrative [facility] ([facility]) - 12/09/2024 3:07 PM EDT Performed at: [address] [place] [id number] Specialist Physician: Cristino Zuniga MD, Phone: [phone] Patient Fasting: N Beny Jacobs LAB BLOOD ORDERABLES F inal Result [facility] ([facility]ULAT[facility]) [address] [place] [address], [facility] [address] [place] [address], * XR Spine Cervical 3 View (12/08/2024 11:38 AM EDT) Anatomical Region Laterality Modality Spine, C-spine N/A Radiographic Eliana ging 12/14/2024 10:4 1 AM EDT Impressions 12/14/2024 10:45 AM EDT Impression: Moderately advanced C5-6 and C6-7 degenerative disc disease. No evidence of acute or healing cervical spine trauma, or significant focal subluxation. Electronically Signed: Jairo Harper MD 12/14/2024 10:45 AM EDT Workstation ID: [id number] Narrative 12/14/2024 10:45 AM EDT XR SPINE CERVICAL 3 VW Date of Exam: 12/08/2024 11:33 AM EDT Indication: Neck pain No injury. Comparison: None available. Findings: There is moderately advanced C5-6 and C6-7 degenerative disc disease. No significant focal subluxation or vertebral compression deformity is seen. Prevertebral soft tissues appear normal. AP view shows a mild S-shaped cervicothoracic scoliosis, convex to the left in the cervical spine. Dens and lateral masses appear normally aligned and intact. Included lung apices appear clear of active disease. Procedure Note Jairo Harper MD - 12/14/2024 XR SPINE CERVICAL 3 VW Date of Exam: 12/08/2024 11:33 AM EDT Indication: Neck pain No injury. Comparison: None available. Findings: There is moderately advanced C5-6 and C6-7 degenerative disc disease. Nosignificant focal subluxation or vertebral compression deformity is seen.Prevertebral soft tissues appear normal. AP view shows a mild S-shapedcervicothoracic scoliosis, convex to the left in the cervical spine. Dens and lateral masses appear normallyaligned and intact. Included lung apices appear clear of active disease. IMPRESSION: Impression: Moderately advanced C5-6 and C6-7 degenerative disc disease. No evidenceof acute or healing cervical spine trauma, or significant focalsubluxation. Electronically Signed: Jairo Harper MD 12/14/2024 10:45 AM EDT Workstation ID: [id number] Beny Jacobs DO IMG DIAGNOSTIC IMAGING ORDERABLES Final Result from Last 3 Months Insurance [facility] MEDICARE ADVANTAGE PPO Care Teams Vp Corporate Partnerships Relationship Specialty Start Date End Date Manny Linder MD Pending sale to [facility] [address] [facility] [address] [place] [id number] PCP - General Family Medicine 06/21/24
--- OUTSIDE RECORDS SUMMARY | 2025-02-09 12:35 | XMS_ITS | Encounter Summary ---
[facility] Address [address] [place] [address] Care Team Providers Care Clinical Technician Name Role Phone Manny Linder MD Primary Care Provider Encounter Details Date Type Department Care Team (Late Contact Info) Description 12/09/2024 Results Follow-Up [facility] [address] [phone] Beny Jacobs DO [address] [id number] Social History Tobacco Use Types Packs/Day Years [...] [facility] [address] [phone] Meme Mojica APRN [address] [phone] 05/30/2025 11:45 AM EDT Office Visit [facility] [address] [phone] [facility]y Jacobs DO 330 [facility] [address] [place] [address] documented as of this encounter Visit Diagnoses Not on filedocumented in this encounter Care Teams Clinical Technician Relationship Specialty Start Date End Date Manny Linder MD [facility] [address] [facility] 2 [place], [place] [id number] PCP - General Family Medicine 06/21/24 documented as of this encounter
--- OUTSIDE RECORDS SUMMARY | 2025-02-09 12:35 | XMS_ITS | Clinical Summary ---
Author Organization Healthcare Address [address] [place] [address] Care Team Providers Care Flower Cutter Name Role Phone Kathy Kennedy Primary Care Provider [phone] Allergies Active Allergy Reactions Criticality Noted Date [...] or (1 - 1-dose 75+ series) 07/27/2022 [id number] Vaccine (2 - 2024- season) 2024 06/21/2020 [facility]Y-Influenza Vaccine (#1) 11/15/202412/15, 01/25/2020, 01/07/2017, [...] patient's age to complete this topic Insurance [facility] MEDICARE Care Teams Flower Cutter Relationship Specialty Start Date End Date Kathy Kennedy PA [facility] [address] [place] [address] PCP - General 03/28/21
== END 2025-02-09 23:59 | disposition home or self-care (01) ==
PROVIDERS: PCP Family Medicine; Visit Provider Family Medicine
DX: J44.9 Chronic obstructive pulmonary disease, unspecified (principal); R94.2 Abnormal results of pulmonary function studies
CPT/HCPCS: 94010; 94727; 94729

== ENCOUNTER 2025-03-16 13:00 | Outpatient (RCR) | payer MEDICARE, SELFPAY | END 2025-03-16 23:59 | disposition home or self-care (01) | LOC: PT 13:00 | PROVIDERS: PCP Family Medicine; Visit Provider Nurse Practitioner Family | DX: M50.30 Other cervical disc degeneration, unspecified cervical region (principal); R18.8 Other ascites | CPT/HCPCS: 97110; 97140; 97161 ==